=== PATIENT | female | born 1960 | race Caucasian/White ===

== ENCOUNTER → 2017-12-20 12:50 | Outpatient (CLI) | payer OTHER, SELFPAY ==
[2017-12-20 13:17] LABS: Add Manual Diff / Slide Review NO; Basophils Percent Auto 0.1 % (0-2); Eosinophils Percent Auto 1.4 % (2-4); Hematocrit 35.8 % (36-46); Hemoglobin 11.9 g/dL (12.0-16.0); Lymphocytes Percent Auto 36.3 % (25-40); Mean Corpuscular HGB Conc 33.2 % (30-36); Mean Corpuscular Hemoglobin 27.8 PG (26-34); Mean Corpuscular Volume 83.7 fL (80-100); Monocytes Percent Auto 6.9 % (3-14); Neutrophils Absolute Auto 4500 /uL (3000-5900); Neutrophils Percent Auto 55.3 % (50-75); Platelet Count 330 X10^3/uL (150-400); Red Blood Cell Count 4.28 X10^6/uL (4.0-5.2); Red Cell Distribution Width 13.7 % (11.6-14.8); White Blood Cell Count 8.1 X10^3/uL (4.5-11.0)
[2017-12-20 13:34] LABS: Carbon Dioxide 29 mmol/L (22-32); Chloride 106 mmol/L (98-107); HEMOLYSIS < 15 (0-50); Potassium 4.2 mmol/L (3.4-5.1); Sodium 143 mmol/L (137-145)
== END ==
PROVIDERS: PCP Internal Medicine; Visit Provider Orthopaedic Surgery
DX: Z01.818 Encounter for other preprocedural examination (principal); Z01.812 Encounter for preprocedural laboratory examination
CPT/HCPCS: 36415; 80051; 85025; 93005

== ENCOUNTER → 2018-08-08 15:50 | Outpatient (CLI) | payer OTHER, SELFPAY ==
--- NOTE | 2018-08-08 | DI.RAD.S_ITS ---
PROCEDURE: XR CERVICAL SPINE 4V OR 5V INDICATIONS: CERVICAL RADICULOPATHY TECHNIQUE: 5 views of the cervical spine acquired. COMPARISON: None. FINDINGS: Bones: No fractures or dislocations to the T1 level. Oblique images demonstrate moderate foraminal narrowing on the left at C3-4, mild foraminal narrowing on the right at C4-5 and to a lesser extent on the left C4-5 due to apparent uncovertebral joint hypertrophy. This may be accentuated by overlying cartilaginous calcification. Soft tissues: No prevertebral soft tissue swelling. IMPRESSION: Uncovertebral joint hypertrophy may result in bilateral foraminal narrowing in the upper cervical spine as described. Dictated by: Susy Gomez M.D. on 08/08/2018 at 17:06 Approved by: Susy Gomez M.D. on 08/08/2018 at 17:17
--- NOTE | 2018-08-08 | DI.RAD.S_ITS ---
PROCEDURE: XR LUMBAR SPINE 2-3V INDICATIONS: LUMBAR RADICULOPATHY TECHNIQUE: 3 views of the lumbar spine were acquired. COMPARISON: None. FINDINGS: Bones: 6 [id number] vertebrae are present. Grade 1 anterolisthesis of L5 on 6. Otherwise normal bony alignment. Mild facet hypertrophy L5 6. No vertebral body compression fractures. No suspicious bony lesions. Soft tissues: Overlying bowel gas pattern is normal. No suspicious soft tissue calcifications. IMPRESSION: 1. Grade 1 anterolisthesis L5 on 6 and bilateral facet hypertrophy may narrow the neural exit foramina. Consider MRI for persistent symptoms. Dictated by: Susy Gomez M.D. on 08/08/2018 at 17:03 Approved by: Susy Gomez M.D. on 08/08/2018 at 17:06
== END ==
PROVIDERS: Family Provider Internal Medicine; PCP Internal Medicine; Visit Provider Internal Medicine
DX: M54.16 Radiculopathy, lumbar region (principal); M54.12 Radiculopathy, cervical region; M43.16 Spondylolisthesis, lumbar region; M48.02 Spinal stenosis, cervical region
CPT/HCPCS: 72050; 72100

== ENCOUNTER → 2018-10-05 07:46 | Outpatient (CLI) | payer OTHER, SELFPAY ==
--- NOTE | 2018-10-05 | DI.MG.S_ITS ---
BILATERAL DIGITAL SCREENING MAMMOGRAM 3D/2D WITH CAD: 10/05/2018 CLINICAL: Routine screening. Comparison is made to exams dated: 04/23/2017 mammogram - [facility], 03/17/2013 mammogram, and 02/11/2011 mammogram - [facility]. There are scattered fibroglandular elements in both breasts. Current study was also evaluated with a Computer Aided Detection (CAD) system. No significant masses, calcifications, or other findings are seen in either breast. There has been no significant interval change. IMPRESSION: NEGATIVE There is no mammographic evidence of malignancy. A 1 year screening mammogram is recommended. This exam was interpreted at Station ID: [id number]. NOTE: For mammograms, a report in lay terms will be sent to the patient. Approximately 15% of breast malignancies will not be visualized mammographically. In the management of a palpable breast mass, a negative mammogram must not discourage biopsy of a clinically suspicious lesion. Electronically Signed By: Alexander jose/obed:10/05/2018 10:48:53 letter sent: Normal Exam ACR BI-RADS Category 1: Negative [id number]
== END ==
PROVIDERS: Family Provider Internal Medicine; PCP Internal Medicine; Visit Provider Internal Medicine
DX: Z12.31 Encounter for screening mammogram for malignant neoplasm of breast (principal)
CPT/HCPCS: 77063; 77067

== ENCOUNTER → 2019-02-09 12:32 | Outpatient (CLI) | payer OTHER, SELFPAY | PROVIDERS: Family Provider Internal Medicine; PCP Internal Medicine; Visit Provider Internal Medicine | DX: M85.852 Other specified disorders of bone density and structure, left thigh (principal); Z78.0 Asymptomatic menopausal state | CPT/HCPCS: 77080 ==

== ENCOUNTER → 2019-12-25 16:54 | Outpatient (CLI) | payer BC, SELFPAY ==
--- NOTE | 2019-12-25 16:57 | DI.RAD.S_ITS ---
PROCEDURE: XR LUMBAR SPINE 2-3V INDICATIONS: LUMBAGO WITH SICIATICA RIGHT AND LEFT SIDE TECHNIQUE: 3 views of the lumbar spine were acquired. COMPARISON: [facility], , XR LUMBAR SPINE 2-3V, 08/08/2018, 15:56. FINDINGS: Bones: 6 [id number] vertebrae are present. There is very mild rightward curvature of lumbar spine centered at L3 level. Grade 1 anterolisthesis of L5 on S1 is seen. Degenerative endplate changes and bilateral facet arthrosis at L4-5 and L5-S1 levels are noted.. No vertebral body compression fractures. No suspicious bony lesions. Soft tissues: Overlying bowel gas pattern is normal. No suspicious soft tissue calcifications. IMPRESSION: Grade 1 anterolisthesis of L5 on S1. Degenerative disc lower lumbar spine. No acute compression fracture. Findings are not significantly changed from prior study. Dictated by: Robinson Mo M.D. on 12/25/2019 at 17:41 Approved by: Robinson Mo M.D. on 12/25/2019 at 17:45
== END ==
PROVIDERS: Family Provider Internal Medicine; PCP Internal Medicine; Referring Provider Student in an Organized Health Care Education/Training Program; Visit Provider Student in an Organized Health Care Education/Training Program
DX: M51.16 Intervertebral disc disorders with radiculopathy, lumbar region (principal); M43.17 Spondylolisthesis, lumbosacral region
CPT/HCPCS: 72100

== ENCOUNTER 2019-12-29 13:44 | Inpatient (IN) | payer BC, SELFPAY ==
[2019-12-29] VITALS (17 sets, daily range): BP systolic 108–148; BP diastolic 55–78; PULSE 68–88; RESP 14–29; TEMP 36.2–37.8; O2SAT 96–100; BMI 29.2
[2019-12-29 14:38] LABS: Alanine Aminotransferase 14 IU/L (<35); Albumin 3.7 g/dL (3.5-5.0); Albumin Globulin Ratio 1.5 (1.0-2.8); Alkaline Phosphatase 62 U/L (38-126); Aspartate Aminotransferase 20 IU/L (14-36); Bilirubin Total 0.3 mg/dL (0.2-1.3); Blood Urea Nitrogen 15 mg/dL (7-17); Calcium 8.3 mg/dL (8.4-10.2); Carbon Dioxide 25 mmol/L (22-32); Chloride 108 mmol/L (98-107); Estimated Glomerular Filt Rate > 60.0 mL/min (>60); Globulin 2.4 g/dL (1.7-4.1); Glucose 96 mg/dL (80-110); HEMOLYSIS < 15 (0-50); Potassium 3.9 mmol/L (3.4-5.1); Sodium 140 mmol/L (137-145); Total Protein 6.1 g/dL (6.3-8.2)
[2019-12-29 14:42] LABS: Add Manual Diff / Slide Review NO; Basophils Absolute Auto 0 /uL (0-100); Basophils Percent Auto 0.2 % (0-2); Eosinophils Absolute Auto 100 /uL (0-450); Eosinophils Percent Auto 0.6 % (2-4); Lymphocytes Absolute Auto 1800 /uL (1100-4500); Lymphocytes Percent Auto 20.1 % (25-40); Mean Corpuscular Hemoglobin 22.3 PG (26-34); Mean Corpuscular Volume 71.8 fL (80-100); Monocytes Absolute Auto 600 /uL (0-900); Neutrophils Absolute Auto 6500 /uL (1500-7000); Neutrophils Percent Auto 72.1 % (50-75); Platelet Count 391 X10^3/uL (150-400); Red Blood Cell Count 2.51 X10^6/uL (4.0-5.2); White Blood Cell Count 9.1 X10^3/uL (4.5-11.0)
[2019-12-29 14:43] LABS: Hemoglobin 5.6 g/dL (12.0-16.0)
--- NOTE | 2019-12-29 14:52 | ED_ITS ---
HPI - Recheck/Abnormal Lab/Rx General Chief Complaint: Recheck/Abnormal Lab/Rx Stated Complaint: hemaglobin is low Time Seen by Provider: 12/29/19 14:20 Source: patient Mode of arrival: Ambulatory History of Present Illness HPI narrative: 59-year-old otherwise healthy woman who had a minor slip/fall about a month ago and hurt her right hip and had some spasm into her right back. For this she has been using conservative treatment and taking Aleve gist-enn-eumthir b.i.d. as well as Tylenol. After approximately 2 weeks she noted increasing muscle spasms particularly in her calves and leg cramps so bad that she had to get out of bed to soak in hot water. She is treating this with potassium and magnesium. The back pain is improving after the addition of methocarbamol and gabapentin however the leg cramps are getting dramatically w orse. She was seen by her primary care physician 2 days ago and blood work was ordered. Returned with a dramatically low H&H. She presents to the emergency room today at their request still noting dramatic lower extremity cramps actually somewhat improved after trying quinine last night. She reports mild epigastric pain, no vomiting, no black stools. She does note that she has been taking more Pepto-Bismol due to increasing stomach pain over the last number of weeks. She also notes significantly increased exertional dyspnea and a sense that her legs are quite heavy. She is having no chest pain or palpitations. Complains of no headaches and no other obvious neurologic symptoms. Related Data Home Medications Medication Instructions Recorded Confirmed bupropion HCl 100 mg PO Q DAY #0 08/01/11 multivitamin [Multiple Vitamins] 1 tab PO QDAY #0 08/01/11 trazodone 25 mg PO HS #0 05/19/17 Allergies Allergy/AdvReac Type Severity Reaction Status Date / Time cephalexin [CEPHALEXIN] Allergy Severe RASH/HIVES Unverified 12/29/19 13:57 cyclobenzaprine Allergy Severe Hives Verified 12/29/19 13:57 [From Flexeril] Review of Systems Review of Systems Narrative: Remainder of review of systems including constitutional, ENT, cardiovascular, respiratory, GI, , musculoskeletal, skin, neurologic and psychiatric systems reviewed and are unremarkable except as noted in HPI. Patient History Medical History Upper GI bleed (Acute) Social History Smoking Status: Never smoker Smoking Status: Never smoker Substance Use Type: does not use Exam Narrative Exam Narrative: General: Healthy appearing, pale but in no acute distress. Able to give a complete and coherent history. Well-nourished well-developed HEENT: Moist mucous membranes, normal sclera with reactive pupils, Neck: No JVD, supple Respiratory: Lungs are clear to auscultation, no wheezing no rales no rhonchi. Full and symmetrical air movement Cardiac: Regular rate and rhythm no murmurs no bruits Abdomen: Soft, mild epigastric tenderness, good bowel tones, no flank pain Skin: Warm and dry, no rashes Neurologic: Grossly neurologically intact with no obvious asymmetries or abnormalities Extremities: No trauma Psych: Cooperative, appropriate insight and affect Rectal exam: guaiac positive Initial Vital Signs Initial Vital Signs: Vital Signs Temperature 97.2 F L 12/29/19 13:49 Pulse Rate 82 12/29/19 13:49 Respiratory Rate 20 12/29/19 13:49 Blood Pressure 148/67 H 12/29/19 13:49 Pulse Oximetry 100 12/29/19 13:49 Course Orders Ordered: ED Orders 12/29/19 14:18 Complete Blood Count AUTO DIFF Stat Comprehensive Metabolic Panel Stat Packed Cells Stat Troponin I Stat Type and Screen Stat 12/29/19 14:21 Urinalysis and Microscopic Stat 12/29/19 14:43 EKG-12 Lead Stat Pantoprazole Sodium 80 mg/ (Sodium Chloride) 100 mls @ 10 mls/hr IV CONT AFSHIN Last Admin: 12/29/19 15:05 Dose: 8 mg/hr, 10 mls/hr Documented by: ALEJANDRA Discontinued Medications Pantoprazole Sodium (Protonix) 80 mg IV NOW ONE Stop: 12/29/19 14:44 Last Admin: 12/29/19 15:05 Dose: 80 mg Documented by: ALEJANDRA Vital Signs Vital signs: Vital Signs - 8 hr 12/29/19 13:49 Temperature 97.2 F L Pulse Rate 82 Respiratory Rate 20 Blood Pressure 148/67 H Pulse Oximetry 100 MDM - Recheck/Abnormal Lab/Rx Medical Records Attestation: I reviewed the patient's medical records. Lab Data Attestation: I reviewed the patient's lab results. Result diagrams: 12/29/19 14:18 12/29/19 14:18 Labs: Lab Results 12/29/19 12/29/19 12/29/19 Range/Units 14:18 14:18 14:18 WBC 9.1 (4.5-11.0) X10^3/uL RBC 2.51 L (4.0-5.2) X10^6/uL Hgb 5.6 L* (12.0-16.0) g/dL Hct 18.0 L* (36-46) % MCV 71.8 L (80-100) fL MCH 22.3 L (26-34) PG MCHC 31.0 (30-36) % RDW 18.0 H (11.6-14.8) % Plt Count 391 (150-400) X10^3/uL Neut % (Auto) 72.1 (50-75) % Lymph % (Auto) 20.1 L (25-40) % [place] % (Auto) 7.0 (3-14) % Eos % (Auto) 0.6 L (2-4) % Baso % (Auto) 0.2 (0-2) % Neut # (Auto) 6500 (9368-2808) /uL Lymph # (Auto) 1800 (5830-5458) /uL [place] # (Auto) 600 (0-900) /uL Eos # (Auto) 100 (0-450) /uL Baso # (Auto) 0 (0-100) /uL Sodium 140 (137-145) mmol/L Potassium 3.9 (3.4-5.1) mmol/L Chloride 108 H (98-107) mmol/L Carbon Dioxide 25 (22-32) mmol/L BUN 15 (7-17) mg/dL Creatinine 0.79 (0.52-1.04) mg/dL Estimated GFR > 60.0 (>60) mL/min BUN/Creatinine Ratio 19.0 (6-22) Glucose 96 (80-110) mg/dL Calcium 8.3 L (8.4-10.2) mg/dL Total Bilirubin 0.3 (0.2-1.3) mg/dL AST 20 (14-36) IU/L ALT 14 (<35) IU/L Alkaline Phosphatase 62 (38-126) U/L Troponin I (0.01-0.034) ng/mL Total Protein 6.1 L (6.3-8.2) g/dL Albumin 3.7 (3.5-5.0) g/dL Globulin 2.4 (1.7-4.1) g/dL Albumin/Globulin Ratio 1.5 (1.0-2.8) Blood Type O Positive Antibody Screen Negative Crossmatch See Detail 12/29/19 Range/Units 14:18 WBC (4.5-11.0) X10^3/uL RBC (4.0-5.2) X10^6/uL Hgb (12.0-16.0) g/dL Hct (36-46) % MCV (80-100) fL MCH (26-34) PG MCHC (30-36) % RDW (11.6-14.8) % Plt Count (150-400) X10^3/uL Neut % (Auto) (50-75) % Lymph % (Auto) (25-40) % [place] % (Auto) (3-14) % Eos % (Auto) (2-4) % Baso % (Auto) (0-2) % Neut # (Auto) (2074-3745) /uL Lymph # (Auto) (9063-5836) /uL [place] # (Auto) (0-900) /uL Eos # (Auto) (0-450) /uL Baso # (Auto) (0-100) /uL Sodium (137-145) mmol/L Potassium (3.4-5.1) mmol/L Chloride (98-107) mmol/L Carbon Dioxide (22-32) mmol/L BUN (7-17) mg/dL Creatinine (0.52-1.04) mg/dL Estimated GFR (>60) mL/min BUN/Creatinine Ratio (6-22) Glucose (80-110) mg/dL Calcium (8.4-10.2) mg/dL Total Bilirubin (0.2-1.3) mg/dL AST (14-36) IU/L ALT (<35) IU/L Alkaline Phosphatase (38-126) U/L Troponin I < 0.012 (0.01-0.034) ng/mL Total Protein (6.3-8.2) g/dL Albumin (3.5-5.0) g/dL Globulin (1.7-4.1) g/dL Albumin/Globulin Ratio (1.0-2.8) Blood Type Antibody Screen Crossmatch ECG Data Attestation: I personally reviewed and interpreted this ECG as follows: Interpretation: Sinus rhythm at a rate of 81 Normal intervals, normal axis No acute ischemic changes MDM Narrative Medical decision making narrative: 59-year-old woman with increasing leg cramps and exertional dyspnea over the last month concurrent with taking Aleve secondary to a musculoskeletal low back right hip injury. Dramatically low H&H with guaiac-positive stool and mild epigastric pain. Reviewed with General Surgery, will anticipate EGD after fluid and blood resusci tation, with continued PPI drip. Will contact hospitalist service and plan for admission for transfusion and continued observation. Reviewed with hospitalist. Will plan on admission, 2 units of packed red blood cells relatively slowly if she is hemodynamically stable at this time. Patient as well as her updated on findings. Telemetry/observation stay Stable for transfer to the floor Discharge Plan Departure Patient Disposition: Admitted as Observation Clinical Impression: Upper GI bleed Anemia Qualifiers: Anemia type: unspecified type Qualified Code(s): D64.9 - Anemia, unspecified Referrals: Tera Chand MD [Primary Care Provider] -
[2019-12-29] MEDS: PANTOPRAZOLE 40 MG VIAL 80 MG IV (15:05)
[2019-12-29] MEDS: PANTOPRAZOLE 80 MG in SODIUM CHLORIDE 0.9% 100 ML 10 ML IV (15:05)
[2019-12-29 15:10] LABS: Troponin I < 0.012 ng/mL (0.01-0.034)
[2019-12-29 17:12] LABS: COVID19 -Nasal RAPID Negative (Negative)
[2019-12-29] MEDS: ONDANSETRON 4 MG/2 ML INJ IV (18:00)
[2019-12-29] MEDS: BISACODYL 10 MG SUPP PR (18:00)
[2019-12-29] MEDS: MAG HYDROX/ALUM/SIMETH 30 ML UDC PO (18:00)
[2019-12-29 19:18] LABS: RBC Urine None Seen (0-5/HPF)
[2019-12-29 19:23] LABS: Appearance Urine UA CLEAR; Bilirubin Urine UA NEGATIVE (NEGATIVE); Color Urine UA YELLOW; Glucose Urine UA NEGATIVE (Negative); Ketones Urine UA NEGATIVE (NEGATIVE); Leukocyte Esterase Urine UA 1+ (NEGATIVE); Nitrite Urine UA NEGATIVE (Negative); Occult Blood Urine UA NEGATIVE (Negative); Protein Urine UA NEGATIVE (Negative); Urobilinogen Urine UA 0.2 E.U./dL (0.2)
[2019-12-29 19:31] LABS: pH Urine UA 6.5 (4.5-8.0)
[2019-12-29 19:33] LABS: Squamous Epithelial Cell Urine 0-1 /HPF (0-5/HPF); WBC Urine 10-30/HPF (0-5/HPF)
[2019-12-29 19:34] LABS: Amorphous Sediment Urine 1+; Bacteria Urine Occasional (0-1); Culture Indicated Urine Specimen Cultured
--- NOTE | 2019-12-29 20:39 | PC.NURSE ---
Addendum entered by Malissa Hendrickson R.N. 12/29/19 22:04: Late entry: Pt to room 205 from E.R. early in this evening shift. Awake, alert, independent with transfer. Denies dizziness with activity. No shortness of breath observed. Dr. Cervantes in to see patient. Pt covid negative so droplet precautions removed. Consent signed for EGD 12/29 @ [address] Cervantes. Pt denies any unanswered questions/concerns. Pt's spouse takes pt's home meds home. Clear liquid diet. Addendum entered by Malissa Hendrickson R.N. 12/29/19 21:08: DOOR PATCHERLynette Smiley was made aware of pt's slight increase in temp and action of administering tylenol. Rated of blood transfusion decreased to 125 cc/hr. DOOR PATCHER in to see patient at this hour. Original Note: Pt's second unit of blood infusing without difficulty. At 15 minute vital signs temp 98.2 orally and 100.0 temporally. No overt signs of transfusion reaction. Pt given tylenol to manage epigastric/abdominal discomfort 07/13. BL calf scd's in place.
[2019-12-29] MEDS: ACETAMINOPHEN 325 MG TABLET 650 MG PO (20:43)
[2019-12-29] MEDS: methocarbamoL 500 MG TABLET 750 MG PO (23:00)
[2019-12-29] MEDS: TRAZODONE 50 MG TABLET PO (23:00)
[2019-12-29] MEDS: GABAPENTIN 300 MG CAPSULE PO (23:00)
[2019-12-29] MEDS: diazePAM 2 MG TABLET PO (23:01)
[2019-12-29] MEDS: SODIUM CHLORIDE 0.9% 1,000 ML 100 ML IV (23:16)
[2019-12-30] VITALS (9 sets, daily range): BP systolic 89–125; BP diastolic 53–77; PULSE 62–73; RESP 11–18; TEMP 36.3–36.8; O2SAT 93–100
--- NOTE | 2019-12-30 00:46 | P.HP_ITS ---
History of Present Illness History of Present Illness Date Patient Seen: 12/29/19 Time Patient Seen: 20:43 Chief complaint: hemaglobin is low Narrative: Ms. Germaine Cleveland is a 59-year-old female with a past medical history significant for depression and vertigo who presents to the ER sent in by per primary care provider for abnormal labs. The patient presents with multiple medical complaints that have been progressive over the last month. The patient states her symptoms began around Labor Day after the patient took a fall resulting in right hip and right back pain with back spasms. Patient self- treated Aleve and Tylenol with improvement however the patient subsequently developed calf leg spasms extending up into the groin that became progressively worsened excruciating. The patient was taken potassium and magnesium for this. Her back pain improved with treatment with methocarbamol and gabapentin with leg pains rib becoming worse. The patient was started on quinine with improvement in leg pain. Patient also complained of epigastric pains and was taking Pepto- Bismol has subsequently had black stools. She saw her primary care provider to days ago at which time labs were obtained. The patient was found to have a critically low hemoglobin. She further relates that after flu shot on 12/16/2019 she had multiple episodes nausea vomiting of normal bilious emesis without hematemesis. She reports no complaints of melena prior to taking bismuth or hematochezia. Over the same period of time the patient describes increasing weakness and exacerbation of her pre-existing vertigo. She denies complaints of fevers or chills nasal congestion or sore throat. She had no known COVID-19 exposures. She denies complaints of chest pain or palpitations. She does endorse exertional dyspnea becoming short of breath and feeling weak when ascending stairs. She denies complaints of abdominal pain other than epigastrium, no cramping pain. She denies changes in stool or bladder habits. She has no urgency frequency or burning. The patient is normally active and independent in all ADLs. She uses no assistive devices. Upon arrival the ER the patient is afebrile with temperature 97.2?, heart rate of 82, blood pressure 148/67, respiratory rate of 20, saturating 100% on room air. No imaging was obtained. Twelve lead EKG obtained finds sinus rhythm with ventricular rate of 80 without ectopy or block, inverted T-waves noted in lead 3, no evidence of infarct. On laboratory analysis the patient has a white blood cell count of 9.1, hemoglobin of 5.6 and hematocrit of 18.0, MCV of 71.8, MCH of 22.3 and platelets 391. Electrolytes are all within normal limits and she has a BUN of 15 and creatinine 0.79. Her nonfasting glucose is 96. Her liver functions are all within normal limits and she has an albumin of 3.7. Troponin is found to be less than 0.012. On urinalysis she has a specific gravity of 1.020, 1+ leukocyte esterase, 10-30 WBCs and occasional bacteria. Her COVID-19 screening is negative. Gel surgeries contacted and Dr. Cervantes agrees to consult with plans for EGD in the morning. Transfusions initiated in the ER of 2 units of packed RBCs as well as started on a Protonix drip. The patient is admitted to the hospitalist service for upper GI bleed which general surgery consult. Patient History Medical History Depression (Inactive) Vertigo (Acute) Surgical History History of left knee surgery (Acute) History of right knee surgery (Acute) Family & Social History Family History (Updated 12/30/19 @ 01:10 by KATERINA Villalobos) Father Alcoholic Mother No significant medical problems Sister No significant medical problems Social History: household members significant other,children Prior Living Arrangements House Safety & Behavioral: Feels Safe in Current Yes Environment Been Physically Hurt or No Threatened By a Person Suicidal Ideation Description None Suicide Plan Description No Plan Tobacco & Substance use: Smoking Status Never smoker alcohol intake never Substance Use Type does not use Meds Home Medications and Allergies Home Medications Medication Instructions Recorded Confirmed Type bupropion HCl 100 mg PO QAM #0 08/01/11 12/29/19 History multivitamin [Multiple Vitamins] 1 tab PO QDAY #0 08/01/11 12/29/19 History trazodone 50 mg PO HS #0 05/19/17 12/29/19 History acetaminophen 650 mg PO Q12H 12/29/19 12/29/19 History bismuth subsalicylate 2 tab PO Q1H 12/29/19 12/29/19 History [Pepto-Bismol] cholecalciferol (vitamin D3) 25 mcg PO DAILY 12/29/19 12/29/19 History diazepam 2 mg PO BID PRN 12/29/19 12/29/19 History gabapentin 300 mg PO TID 12/29/19 12/29/19 History magnesium, potassium aspartate 1 cap PO QID 12/29/19 12/29/19 History methocarbamol 750 mg PO QID 12/29/19 12/29/19 History vitamin E 400 unit PO DAILY 12/29/19 12/29/19 History Allergies Allergy/AdvReac Type Severity Reaction Status Date / Time cephalexin [CEPHALEXIN] Allergy Severe RASH/HIVES Unverified 12/29/19 13:57 cyclobenzaprine Allergy Severe Hives Verified 12/29/19 13:57 [From Flexeril] hydrocodone AdvReac Intermediate Vomiting Verified 12/29/19 19:34 Review of Systems Review of Systems ROS: Yes All systems reviewed with the patient and are negative except as otherwise documented Exam Vital Signs (past 8 hours): - 12/29/19 17:31 12/29/19 17:49 12/29/19 20:04 Temperature 98.6 F 98.9 F 99.3 F Pulse Rate 75 88 71 Respiratory Rate 16 14 16 Blood Pressure 128/78 119/68 122/55 L Pulse Oximetry 12/29/19 20:09 12/29/19 20:27 12/29/19 21:00 Temperature 99.3 F 100.0 F H 99.2 F Pulse Rate 71 68 Respiratory Rate 16 16 Blood Pressure 122/55 L 108/66 Pulse Oximetry 12/29/19 22:55 12/29/19 23:15 Temperature 99.4 F 97.6 F Pulse Rate 75 70 Respiratory Rate 20 16 Blood Pressure 117/73 108/70 Pulse Oximetry 96 Oxygen Delivery Method Room Air Oxygen Flow Rate 0 Narrative Exam Narrative: GENERAL APPEARANCE: well developed, well nourished, in no acute distress. HEENT: Normocephalic, PERRLA, sclera anicteric, EOMs intact without nystagmus, no sinus tenderness to percussion, no rhinorrhea, mucous membranes are pale and dry without lesions or exudate. NECK/THYROID: neck supple, no JVD, no carotid bruit, no thyromegaly, trachea midline. LYMPH NODES: no cervical or supraclavicular lymphadenopathy. SKIN: Pale, warm and dry, no visible lesions, rashes, ulcerations or petechiae. HEART: regular rate and rhythm, S1-S2, no murmur, no rubs or gallops, brisk capillary refill, no edema LUNGS: clear to auscultation bilaterally, no coarseness crackles or wheezing, no cough present CHEST: Symmetrical movement, no accessory muscle use, good tidal volume. ABDOMEN: Soft, no distention, epigastric pain on palpation, no abdominal tenderness, no guarding or peritoneal signs, no organomegaly, no flank or suprapubic tenderness, active bowel tones. BACK: Normal curvature, lumbar back pain on palpation, no muscle spasms palpated. EXTREMITIES: moves all extremities, strength is 5/5 and symmetrical, no no muscular tenderness on palpation, no deformities or joint effusions. NEUROLOGIC: AAO x4, no focal neurologic deficits, cranial nerves II-XII grossly intact, sensation intact to light touch, no radicular leg pain. PSYCH: Good eye contact, mildly anxious linear thought process, cooperative. Objective Labs Result Diagrams: 12/29/19 14:18 12/29/19 14:18 Labs: Laboratory Results - last 24 hr 12/29/19 12/29/19 12/29/19 14:18 14:18 14:18 WBC 9.1 RBC 2.51 L Hgb 5.6 L* Hct 18.0 L* MCV 71.8 L MCH 22.3 L MCHC 31.0 RDW 18.0 H Plt Count 391 Neut % (Auto) 72.1 Lymph % (Auto) 20.1 L [place] % (Auto) 7.0 Eos % (Auto) 0.6 L Baso % (Auto) 0.2 Neut # (Auto) 6500 Lymph # (Auto) 1800 [place] # (Auto) 600 Eos # (Auto) 100 Baso # (Auto) 0 Sodium 140 Potassium 3.9 Chloride 108 H Carbon Dioxide 25 BUN 15 Creatinine 0.79 Estimated GFR > 60.0 BUN/Creatinine Ratio 19.0 Glucose 96 Calcium 8.3 L Total Bilirubin 0.3 AST 20 ALT 14 Alkaline Phosphatase 62 Troponin I Total Protein 6.1 L Albumin 3.7 Globulin 2.4 Albumin/Globulin Ratio 1.5 Urine Color Urine Appearance Urine pH Ur Specific [place] Urine Protein Urine Glucose (UA) Urine Ketones Urine Occult Blood Urine Nitrate Urine Bilirubin Urine Urobilinogen Ur Leukocyte Esterase Urine RBC Urine WBC Ur Squamous Epith Cells Amorphous Sediment Urine Bacteria Ur Culture Indicated? COVID-19 PCR Blood Type O Positive Antibody Screen Negative Crossmatch See Detail 12/29/19 12/29/19 12/29/19 14:18 16:00 19:17 WBC RBC Hgb Hct MCV MCH MCHC RDW Plt Count Neut % (Auto) Lymph % (Auto) [place] % (Auto) Eos % (Auto) Baso % (Auto) Neut # (Auto) Lymph # (Auto) [place] # (Auto) Eos # (Auto) Baso # (Auto) Sodium Potassium Chloride Carbon Dioxide BUN Creatinine Estimated GFR BUN/Creatinine Ratio Glucose Calcium Total Bilirubin AST ALT Alkaline Phosphatase Troponin I < 0.012 Total Protein Albumin Globulin Albumin/Globulin Ratio Urine Color Yellow Urine Appearance Clear Urine pH 6.5 Ur Specific [place] 1.020 Urine Protein Negative Urine Glucose (UA) Negative Urine Ketones Negative Urine Occult Blood Negative Urine Nitrate Negative Urine Bilirubin Negative Urine Urobilinogen 0.2 Ur Leukocyte Esterase 1+ H Urine RBC None seen Urine WBC 10-30/hpf H Ur Squamous Epith Cells 0-1 /hpf Amorphous Sediment 1+ Urine Bacteria Occasional (0-1) Ur Culture Indicated? Specimen cultured COVID-19 PCR Negative Blood Type Antibody Screen Crossmatch Assessment & Plan Assessment & Plan narrative: This is a 59-year-old female who presents to the ER at the request of her primary care provider following obtaining lab work in finding critically low hemoglobin. The patient has been taking Aleve and Tylenol for her back pain following a fall several weeks ago. The patient has had associated progressive weakness, exertional dyspnea, exacerbation of vertigo and progressive leg pains. 1. Acute upper GI bleed, present on admission, active -likely related to NSAID use, patient was taking Aleve twice daily for her back pain. No prior history a GI problems. -upon arrival the patient has a hemoglobin 5.6 and hematocrit of 18.0. -general surgery is contact, Dr. Cervantes agrees to consult and we appreciate his recommendations and evaluation. -will plan for EGD in the morning with patient NPO post midnight. -pantoprazole infusion at 8 mg an hour. 2. Acute blood loss anemia secondary to GI bleed, present on admission, active. -hemoglobin is 5.6 with hematocrit of 18.0, MCV is 71.8, MCH is 22.3. -patient is transfused 2 units of packed RBCs. Will recheck H&H 1 hour post transfusion. -ordered ferrous sulfate 325 mg twice daily starting tomorrow afternoon following EGD 3. Acute lumbar back pain without radiculopathy, present on admission, active. -will continue pain management with gabapentin 300 mg t.i.d. and methocarbamol 750 mg q.i.d.. -requested physical therapy consult, evaluate and treat. 4. Depression with anxiety, chronic, stable. -continue home regimen of bupropion 100 mg daily -ordered diazepam 2 mg orally as needed for anxiety. 5. Vertigo, chronic, stable. -not evident at time of encounter. VTE prophylaxis: SCDs, chemical prophylaxis contraindicated. IV fluid: Transfusing 2 units of packed RBCs, normal saline 100 cc/hour. Diet: Clear liquids, NPO at midnight. Code status: Full code, patient designates her to be surrogate decision maker. The patient is admitted to the hospital due to the severity of anemia and necessity of treatment and further evaluation and intervention. Patient is adm itted as observation with expected length of stay to be less than 2 midnights. COVID-19 COVID-19 status: Negative Result date/Date tested (Pos, Neg/Pending): 12/29/19 Scores GCS Julito coma scale eye opening: Spontaneous [place] coma scale verbal response: Orientated [place] coma scale motor response: Obey commands [place] coma scale total score: 15 Quality VTE Deep Vein Thrombosis/Pulmonary Embolism Present on Admission: No
[2019-12-30 01:10] LABS: Hemoglobin 7.2 g/dL (12.0-16.0)
[2019-12-30 01:12] LABS: Hematocrit 22.4 % (36-46)
[2019-12-30 05:35] LABS: Add Manual Diff / Slide Review NO; Basophils Absolute Auto 0 /uL (0-100); Basophils Percent Auto 0.2 % (0-2); Eosinophils Absolute Auto 100 /uL (0-450); Eosinophils Percent Auto 1.3 % (2-4); Hematocrit 23.8 % (36-46); Hemoglobin 7.5 g/dL (12.0-16.0); Lymphocytes Absolute Auto 2800 /uL (1100-4500); Lymphocytes Percent Auto 39.3 % (25-40); Mean Corpuscular HGB Conc 31.6 % (30-36); Mean Corpuscular Hemoglobin 23.5 PG (26-34); Mean Corpuscular Volume 74.5 fL (80-100); Monocytes Absolute Auto 700 /uL (0-900); Monocytes Percent Auto 10.1 % (3-14); Neutrophils Absolute Auto 3500 /uL (1500-7000); Neutrophils Percent Auto 49.1 % (50-75); Platelet Count 320 X10^3/uL (150-400); Red Cell Distribution Width 17.5 % (11.6-14.8); White Blood Cell Count 7.2 X10^3/uL (4.5-11.0)
[2019-12-30 05:41] LABS: BUN Creatinine Ratio 13.7 (6-22); Blood Urea Nitrogen 10 mg/dL (7-17); Calcium 7.8 mg/dL (8.4-10.2); Carbon Dioxide 25 mmol/L (22-32); Chloride 111 mmol/L (98-107); Estimated Glomerular Filt Rate > 60.0 mL/min (>60); Glucose 89 mg/dL (80-110); HEMOLYSIS < 15 (0-50); Potassium 3.7 mmol/L (3.4-5.1); Sodium 141 mmol/L (137-145)
[2019-12-30] MEDS: ACETAMINOPHEN 650 MG SUPP PR (06:36)
[2019-12-30] MEDS: LACTATED RINGERS 1,000 ML 42 ML IV (08:10)
[2019-12-30] MEDS: fentaNYL 250 MCG/5 ML INJ IV (08:31)
[2019-12-30] MEDS: MIDAZOLAM 5 MG/5 ML VIAL IV (08:32)
[2019-12-30] MEDS: LIDOCAINE 4% SOLN 50 ML 20 ML TOP (08:33)
--- NOTE | 2019-12-30 08:40 | PM.OP.ENDO ---
Operative Date/Time/Diagnoses Date of procedure: 12/30/19 Time of procedure: 08:40 Pre-op diagnosis: Upper GI bleed from duodenal ulcer Post-op diagnosis: same Procedure & Clinicians Study performed: Esophagogastroduodenoscopy Same procedure as scheduled: Yes Indications: Patient with severe anemia on nonsteroidals Surgeon: Collin Cervantes Procedure Notes SCOAP/Timeout: This was done Procedure in detail: Patient was properly identified during surgical pause given topical lidocaine gargle. She was given a total of 3 mg of Versed and 50 micro g of fentanyl throughout this procedure and remained comfortable. The flexible fiberoptic gastroscope inserted transorally from the hypopharynx into the 2nd portion of the duodenum. Patient has a small hiatal hernia. No bleeding in the esophagus the stomach is free of any acute bleeding or old evidence of old blood. In the 1st portion of duodenum just beyond the duodenal bulb there is a punctate duodenal ulcer slightly oozing. Most of the ulcer bed is covered in fibrin. There is no evidence of tumor. The scope was passed down into the 2nd toward the 3rd portion the duodenum with no abnormalities there. The scope was removed without difficulty the patient tolerated this procedure very well. Scope withdrawal time: 5 Sedation minutes: 10 Findings: duodenal ulcer Specimen(s): none sent Impression: Bleeding duodenal ulcer likely the cause of acute and chronic anemia Post-procedure Recommendations: No ASA/NSAIDS Disposition: Acute Care
--- NOTE | 2019-12-30 08:55 | SUR.PHASEI ---
report called to Dali
--- NOTE | 2019-12-30 09:32 | SUR.PHASEI ---
Patient transferred to the floor. Report given to Erin. VS stable. IV saline locked x2.
--- NOTE | 2019-12-30 10:41 | PT.IIE ---
Surgery Performed Operation Date: 12/30/19 09:00 Actual Procedures p Esophagogastroduodenoscopy - Collin Cervantes MD Surgical History (Last Reviewed 12/30/19 @ 01:09 by KATERINA Villalobos) History of left knee surgery (Acute) History of right knee surgery (Acute) Medical History (Last Reviewed 12/30/19 @ 01:09 by KATERINA Villalobos) Depression (Inactive) Vertigo (Acute) Physical Therapy Inpatient Evaluation/Re-Eval M1 PT/OT-IP Prior Functional Status Start: 12/30/19 12:14 Freq: NEEDED Status: Active Protocol: Document 12/30/19 10:41 AB (Rec: 12/30/19 12:22 AB [email or web address]) Medical Review Prior Functional Status Medical History Reviewed Yes Communication able to make needs known Mobility and Gait pt stated that she is independent with all mobilities and ambulation without AD Social History Household Members significant other,children Living Arrangements House Number of Floors (Floors) 3 or More Floors Number of Stairs To Enter/Railing? 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 PT-IP Current Condition Start: 12/30/19 12:14 Freq: NEEDED Status: Active Protocol: Document 12/30/19 10:41 AB (Rec: 12[facility]30/19 12[email or web address] Therapy Current Condition Current Condition Evaluation Date 12/30/19 Treatment Diagnosis GI bleed; generalized weakness Onset Date 12/29/19 M3 PT-IP Subjective Start: 12/30/19 12:14 Freq: NEEDED Status: Active Protocol: Document 12/30/19 10:41 AB (Rec: 12/30/19 12:22 AB [email or web address]) Subjective Physical Therapy Visit Type Type Initial Evaluation Visit Start Time 10:41 Visit Stop Time 11:04 Total Visit Minutes 23 Number of FACILITIES 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 Physical Therapy Visit Comments Patient Comments pt is agreeable to do PT Therapy Pain Assessment Pain Present Pain Present Denied Pain M4 PT-IP Mobility and Gait Start: 12/30/19 12:14 Freq: NEEDED Status: Active Protocol: Document 12/30/19 10:41 AB (Rec: 12/30/19 12:22 AB [email or web address]) PT-Bed Mobility Assessment Supine to Sit Supine to Sit Independent Sit to Supine Sit to Supine Independent PT-Transfer Assessment Sit to and From Stand Sit to and from Stand Independent Equipment Transfer Assistive Device None Orthotic/Prosthetic Devices or Brace: No Transfers Transfer Destination Toilet Transfer Technique ambulated without AD Transfer Ability Level of Assist Independent Gait Assessment Gait Gait Assistance Required: Standby Assistance Distance (Feet) 250 Able to Maintain Weight Bearing Status Yes During Gait Assistive Devices Assistive Device None Orthotic/Prosthetic Devices or Brace: No Gait Deviations General Gait Pattern Within Normal Limits PT-Balance Assessment Sitting Balance and Reactions Static Sitting Balance Ability Normal Dynamic Sitting Balance Ability Normal Standing Balance and Reactions Static Standing Balance Ability Good Dynamic Standing Balance Ability Good Device Used without AD M5 PT-IP Objective Assessments Start: 12/30/19 12:14 Freq: NEEDED Status: Active Protocol: Document 12/30/19 10:41 AB (Rec: 12/30/19 12:22 [email or web address]) Orientation Orientation/Cognition Level of Alertness Alert Orientation Name,Age,Birthday,Month,Date, Year,Day of Week,Place, Situation Safety Awareness Understands Safety Issues Memory Description No Deficits Noted Gross Range of Motion Lower Extremity ROM Assessment Within Functional Limits Strength Lower Extremity Strength Assessment Within Functional Limits Coordination Assessment Gross Coordination Gross Coordination WNL Sensation Assessment Sensation Gross Sensation WNL Muscle Tone Muscle Tone WNL Yes M6 PT-IP Treatment Start: 12/30/19 12:14 Freq: NEEDED Status: Active Protocol: Document 12/30/19 10:41 AB (Rec: 12/30/19 12:22 [email or web address]) Physical Therapy Treatment Education Education Provided Safety M7 PT-IP Assessment and Plan Start: 12/30/19 12:14 Freq: NEEDED Status: Active Protocol: Document 12/30/19 10:41 AB (Rec: 12/30/19 12:22 [email or web address]) PT Summary Assessment and Plan Potential Rehabilitation Potential Good Status of Condition at Evaluation Stable Summary Impairments Gait,Activity Tolerance Assessment Summary pt is independent with bed mobility, SBA for ambulation for safety. pt without LOB during ambulation and has good safety awareness. pt plans to go home with spouse to assist her if needed and also has her son also to assist her . PT eval completed and no further PT intervention indicated. Frequency of Treatment Frequency Of Treatment Discharge Recommendations To Nursing Amount of Assist Needed Standby Assistance Discharge Recommendations PT Discharge Recommendations Home Transportation Needs at Discharge Private Vehicle
--- NOTE | 2019-12-30 11:00 | PC.NURSE ---
Patient denies pain and nausea. NO stools passed on this shift. Patient bowel tones are positive in all quadrants. Patient went to EGD at 0800. Back from EGD, tolerating clear liquids.
--- NOTE | 2019-12-30 11:26 | PM.DS.1 ---
History of Present Illness History of Present Illness Chief complaint: hemaglobin is low Narrative: Ms. Germaine Cleveland is a 59-year-old female with a past medical history significant for depression and vertigo who presents to the ER sent in by per primary care provider for abnormal labs. The patient presents with multiple medical complaints that have been progressive over the last month. The patient states her symptoms began around Labor Day after the patient took a fall resulting in right hip and right back pain with back spasms. Patient self-treated Aleve and Tylenol with improvement however the patient subsequently developed calf leg spasms extending up into the groin that became progressively worsened excruciating. The patient was taken potassium and magnesium for this. Her back pain improved with treatment with methocarbamol and gabapentin with leg pains rib becoming worse. The patient was started on quinine with improvement in leg pain. Patient also complained of epigastric pains and was taking Pepto-Bismol has subsequently had black stools. She saw her primary care provider to days ago at which time labs were obtained. The patient was found to have a critically low hemoglobin. She further relates that after flu shot on 12/16/2019 she had multiple episodes nausea vomiting of normal bilious emesis without hematemesis. She reports no complaints of melena prior to taking bismuth or hematochezia. Over the same period of time the patient describes increasing weakness and exacerbation of her pre-existing vertigo. She denies complaints of fevers or chills nasal congestion or sore throat. She had no known COVID-19 exposures. She denies complaints of chest pain or palpitations. She does endorse exertional dyspnea becoming short of breath and feeling weak when ascending stairs. She denies complaints of abdominal pain other than epigastrium, no cramping pain. She denies changes in stool or bladder habits. She has no urgency frequency or burning. The patient is normally active and independent in all ADLs. She uses no assistive devices. Upon arrival the ER the patient is afebrile with temperature 97.2?, heart rate of 82, blood pressure 148/67, respiratory rate of 20, saturating 100% on room air. No imaging was obtained. Twelve lead EKG obtained finds sinus rhythm with ventricular rate of 80 without ectopy or block, inverted T-waves noted in lead 3, no evidence of infarct. On laboratory analysis the patient has a white blood cell count of 9.1, hemoglobin of 5.6 and hematocrit of 18.0, MCV of 71.8, MCH of 22.3 and platelets 391. Electrolytes are all within normal limits and she has a BUN of 15 and creatinine 0.79. Her nonfasting glucose is 96. Her liver functions are all within normal limits and she has an albumin of 3.7. Troponin is found to be less than 0.012. On urinalysis she has a specific gravity of 1.020, 1+ leukocyte esterase, 10-30 WBCs and occasional bacteria. Her COVID-19 screening is negative. Gel surgeries contacted and Dr. Cervantes agrees to consult with plans for EGD in the morning. Transfusions initiated in the ER of 2 units of packed RBCs as well as started on a Protonix drip. The patient is admitted to the hospitalist service for upper GI bleed which general surgery consult. Discharge Providers Provider Date of admission: 12/29/19 15:44 Discharge Date: 12/30/19 Primary care physician: Tera Chand MD Consults: 12/29/19 16:52 Consult to Discharge Planning Routine Comment: Consult to Physical Therapy Evaluate & Treat Comment: Physician Instructions: Evaluate and Treat Discharge provider: Adi Cresw MD Summary Hospital Course Discharge Diagnosis: 1. Acute blood loss anemia 2. Duodenal ulcer with GI bleed 3. Acute lumbar back pain without radiculopathy Hospital Course: Patient was admitted due to symptomatic severe anemia. She was transfused 2 units with hemoglobin improving from 5.6-7.5 and hematocrit improving from 18-23.8. EGD was done which showed a small duodenal ulcer with oozing and fibrin covering the base. The ulcer appears benign and pathology not sent. This is likely the cause of her blood loss anemia. Patient has been taking NSAIDs recently for acute lumbar pain. Patient is started on pantoprazole 40 mg daily which she should take for the next month. She is instructed to avoid aspirin or aspirin type pain relievers. A serum Helicobacter IgG antibody was sent to lab [facility] and results should be back in a few days. Consider treating for H pylori if resolved positive. Patient can also have stool antigen testing done if desired. She is also started on oral iron once daily for the next month to help with anemia. Status at Discharge Cognitive/behavioral status at discharge: oriented Functional status at discharge: independent ambulation Overall status at discharge: patient is progressing back to baseline Exam Vital Signs (past 8 hours): - 12/30/19 04:40 12/30/19 07:00 12/30/19 08:00 Temperature 97.3 F L 97.5 F L Pulse Rate 65 62 Respiratory Rate 16 18 Blood Pressure 115/77 125/77 Pulse Oximetry 100 94 97 12/30/19 08:36 12/30/19 08:41 12/30/19 08:46 Temperature 97.3 F L Pulse Rate 73 72 68 Respiratory Rate 12 15 11 L Blood Pressure 96/58 L 96/53 L 89/58 L Pulse Oximetry 93 97 98 12/30/19 08:51 12/30/19 08:56 Temperature 97.7 F Pulse Rate 66 65 Respiratory Rate 13 15 Blood Pressure 104/69 102/68 Pulse Oximetry 93 94 Oxygen Delivery Method Room Air Oxygen Flow Rate 2 Objective Labs Result Diagrams: 12/30/19 05:15 12/30/19 05:15 Labs: Laboratory Results - last 24 hr 12/29/19 12/29/19 12/29/19 14:18 14:18 14:18 WBC 9.1 RBC 2.51 L Hgb 5.6 L* Hct 18.0 L* MCV 71.8 L MCH 22.3 L MCHC 31.0 RDW 18.0 H Plt Count 391 Neut % (Auto) 72.1 Lymph % (Auto) 20.1 L [place] % (Auto) 7.0 Eos % (Auto) 0.6 L Baso % (Auto) 0.2 Neut # (Auto) 6500 Lymph # (Auto) 1800 [place] # (Auto) 600 Eos # (Auto) 100 Baso # (Auto) 0 Sodium 140 Potassium 3.9 Chloride 108 H Carbon Dioxide 25 BUN 15 Creatinine 0.79 Estimated GFR > 60.0 BUN/Creatinine Ratio 19.0 Glucose 96 Calcium 8.3 L Total Bilirubin 0.3 AST 20 ALT 14 Alkaline Phosphatase 62 Troponin I Total Protein 6.1 L Albumin 3.7 Globulin 2.4 Albumin/Globulin Ratio 1.5 Urine Color Urine Appearance Urine pH Ur Specific [place] Urine Protein Urine Glucose (UA) Urine Ketones Urine Occult Blood Urine Nitrate Urine Bilirubin Urine Urobilinogen Ur Leukocyte Esterase Urine RBC Urine WBC Ur Squamous Epith Cells Amorphous Sediment Urine Bacteria Ur Culture Indicated? COVID-19 PCR Blood Type O Positive Antibody Screen Negative Crossmatch See Detail 12/29/19 12/29/19 12/29/19 14:18 16:00 19:17 WBC RBC Hgb Hct MCV MCH MCHC RDW Plt Count Neut % (Auto) Lymph % (Auto) [place] % (Auto) Eos % (Auto) Baso % (Auto) Neut # (Auto) Lymph # (Auto) [place] # (Auto) Eos # (Auto) Baso # (Auto) Sodium Potassium Chloride Carbon Dioxide BUN Creatinine Estimated GFR BUN/Creatinine Ratio Glucose Calcium Total Bilirubin AST ALT Alkaline Phosphatase Troponin I < 0.012 Total Protein Albumin Globulin Albumin/Globulin Ratio Urine Color Yellow Urine Appearance Clear Urine pH 6.5 Ur Specific [place] 1.020 Urine Protein Negative Urine Glucose (UA) Negative Urine Ketones Negative Urine Occult Blood Negative Urine Nitrate Negative Urine Bilirubin Negative Urine Urobilinogen 0.2 Ur Leukocyte Esterase 1+ H Urine RBC None seen Urine WBC 10-30/hpf H Ur Squamous Epith Cells 0-1 /hpf Amorphous Sediment 1+ Urine Bacteria Occasional (0-1) Ur Culture Indicated? Specimen cultured COVID-19 PCR Negative Blood Type Antibody Screen Crossmatch 12/30/19 12/30/19 12/30/19 01:00 05:15 05:15 WBC 7.2 RBC 3.20 L Hgb 7.2 L 7.5 L Hct 22.4 L 23.8 L MCV 74.5 L MCH 23.5 L MCHC 31.6 RDW 17.5 H Plt Count 320 Neut % (Auto) 49.1 L D Lymph % (Auto) 39.3 [place] % (Auto) 10.1 Eos % (Auto) 1.3 L Baso % (Auto) 0.2 Neut # (Auto) 3500 Lymph # (Auto) 2800 [place] # (Auto) 700 Eos # (Auto) 100 Baso # (Auto) 0 Sodium 141 Potassium 3.7 Chloride 111 H Carbon Dioxide 25 BUN 10 Creatinine 0.73 Estimated GFR > 60.0 BUN/Creatinine Ratio 13.7 Glucose 89 Calcium 7.8 L Total Bilirubin AST ALT Alkaline Phosphatase Troponin I Total Protein Albumin Globulin Albumin/Globulin Ratio Urine Color Urine Appearance Urine pH Ur Specific [place] Urine Protein Urine Glucose (UA) Urine Ketones Urine Occult Blood Urine Nitrate Urine Bilirubin Urine Urobilinogen Ur Leukocyte Esterase Urine RBC Urine WBC Ur Squamous Epith Cells Amorphous Sediment Urine Bacteria Ur Culture Indicated? COVID-19 PCR Blood Type Antibody Screen Crossmatch Discharge Plan Discharge Plan Patient Disposition: Home Discharge comment: Dr Cervantes performed EGD which showed a small oozing duodenal ulcer. The ulcer appears benign and pathology was not sent. A serum H.pylori antibody is pending (send out to [facility]) - follow up on test result with Dr Chand. Avoid aspirin or aspirin type pain relievers but Tylenol is okay. Take pantoprazole for 1 month. You can also take an OTC iron tablet once daily for the next month to help anemia. You received 2 units red blood cell transfusion with hemoglobin improving from 5.6 to 7.5. Have blood counts rechecked in 1 to 2 weeks. Discharge orders & Medications Prescriptions: New pantoprazole 40 mg tablet,delayed release (DR/EC) 40 mg PO DAILY Qty: 30 RF: 0 ferrous sulfate 325 mg (65 mg iron) tablet 325 mg PO DAILY Qty: 30 RF: 0 Continued multivitamin [Multiple Vitamins] 1 EACH tablet 1 tab PO QDAY Qty: 0 RF: 0 bupropion HCl 75 MG tablet 100 mg PO QAM Qty: 0 RF: 0 trazodone 50 MG tablet 50 mg PO HS Qty: 0 RF: 0 diazepam 2 mg Tablet 2 mg PO BID PRN (Reason: Anxiety) RF: 0 acetaminophen 650 mg Tablet Extended Release 650 mg PO Q12H RF: 0 gabapentin 300 mg Capsule 300 mg PO TID RF: 0 magnesium, potassium aspartate 250-250 mg Capsule 1 cap PO QID RF: 0 methocarbamol 750 mg Tablet 750 mg PO QID RF: 0 vitamin E 400 unit Capsule 400 unit PO DAILY RF: 0 cholecalciferol (vitamin D3) 25 mcg (1,000 unit) Capsule 25 mcg PO DAILY RF: 0 Pepto-Bismol 262 mg Tablet 2 tab PO Q1H RF: 0 Follow up/Referrals: Tera Chand MD [Primary Care Provider] - Diet/Activity/Treatments Diet: Diet as Tolerated Discharge Data Primary Care Provider: Tera Chand V Attending Provider: Anabela Floyd Admit Date/Time: 12/29/19 15:44 Quality VTE Deep Vein Thrombosis/Pulmonary Embolism Present on Admission: No
--- NOTE | 2019-12-30 11:44 | CM.DANOTE ---
Discharge Planning/Care Management DCP: continued: case received, EMR reviewed and met with pt during Team Bedside Rounds. Introduced self and role. Pt is a 59 year old female who admitted to care of hospitalist team last evening. PCP: Dr. Chand Payer: BHANU Eric. Consulting: [facility] Dr. Mickie Crews explained he would review the labs for today and procedure report and be back in to talk with pt. He noted that pt would likely be safe for a d/c to home today. Pt confirmed that if so, her Baljit would be picking her up. A check in now shows that pt has been cleared for home and will follow up with Dr. Chand. Pt expresses no concerns re the d/c today. CM Discharge Assessment Start: 12/30/19 11:42 Freq: Status: Active Protocol: Document 12/30/19 11:42 ITV (Rec: 12/30/19 11:43 ITV [id number]) Discharge Planning Assessment Advance Directives? No History Provided By Patient,Medical Record Prior Living Arrangements House Household Members significant other,children Is patient alert and oriented? Yes
--- NOTE | 2019-12-30 12:46 | PC.NURSE ---
All discharge instructions, diet, new medications and disease process and diagnosis explained to patient and his . Patient to follow up w/ primary doctor after discharge and have H&H redrawn. Patient and verbalized understanding regarding teaching. Patient went to private vehicle w/ in a wheelchair.
== END 2019-12-30 12:48 | disposition home or self-care (01) | DRG 378 ==
LOC: ED 15:29 → AC 16:24
PROVIDERS: Internal Medicine; Nurse Practitioner Adult Health; Surgery; Admitting Provider Internal Medicine; Emergency Provider Emergency Medicine; Family Provider Internal Medicine; PCP Internal Medicine; Visit Provider Internal Medicine
PROC: 0DJ08ZZ Inspection of Upper Intestinal Tract, Via Natural or Artificial Opening Endoscopic (ICD-10-PCS; CPT 43235; principal; 2019-12-30 09:00)
DX: K26.4 Chronic or unspecified duodenal ulcer with hemorrhage (principal); D62 Acute posthemorrhagic anemia; T39.395A Adverse effect of other nonsteroidal anti-inflammatory drugs [NSAID], initial encounter; M54.5 Low back pain; F32.9 Major depressive disorder, single episode, unspecified; F41.9 Anxiety disorder, unspecified; Z11.59 Encounter for screening for other viral diseases
CPT/HCPCS: 36415; 36430; 80048; 80053; 81001; 84484; 85014; 85018; 85025; 86850; 86900; 86901; 87086; 87635; 93005; 96365; 96366; 97161; 99284; G0378; P9016; C9113; J2250; J2405; J3010

== ENCOUNTER → 2020-01-04 18:42 | Outpatient (ROUT) | payer BC, SELFPAY ==
[2019-12-29 16:54] VITALS: BMI 29.2
[2020-01-04 18:58] LABS: Add Manual Diff / Slide Review NO; Basophils Absolute Auto 0 /uL (0-100); Basophils Percent Auto 0.5 % (0-2); Eosinophils Absolute Auto 200 /uL (0-450); Eosinophils Percent Auto 2.1 % (2-4); Hematocrit 27.6 % (36-46); Hemoglobin 8.8 g/dL (12.0-16.0); Lymphocytes Absolute Auto 2200 /uL (1100-4500); Lymphocytes Percent Auto 28.1 % (25-40); Mean Corpuscular HGB Conc 31.9 % (30-36); Mean Corpuscular Hemoglobin 23.7 PG (26-34); Mean Corpuscular Volume 74.3 fL (80-100); Monocytes Absolute Auto 600 /uL (0-900); Monocytes Percent Auto 7.8 % (3-14); Neutrophils Absolute Auto 4800 /uL (1500-7000); Neutrophils Percent Auto 61.5 % (50-75); Platelet Count 398 X10^3/uL (150-400); Red Blood Cell Count 3.72 X10^6/uL (4.0-5.2); White Blood Cell Count 7.7 X10^3/uL (4.5-11.0)
== END ==
PROVIDERS: Family Provider Internal Medicine; PCP Internal Medicine; Visit Provider Student in an Organized Health Care Education/Training Program
DX: D62 Acute posthemorrhagic anemia (principal)
CPT/HCPCS: 85025

== ENCOUNTER → 2020-02-05 18:59 | Outpatient (ROUT) | payer BC, SELFPAY ==
[2019-12-29 16:54] VITALS: BMI 29.2
[2020-02-05 20:00] LABS: Add Manual Diff / Slide Review NO; Basophils Absolute Auto 0 /uL (0-100); Basophils Percent Auto 0.6 % (0-2); Eosinophils Absolute Auto 100 /uL (0-450); Eosinophils Percent Auto 1.2 % (2-4); Hemoglobin 9.9 g/dL (12.0-16.0); Lymphocytes Absolute Auto 2100 /uL (1100-4500); Lymphocytes Percent Auto 34.3 % (25-40); Mean Corpuscular Hemoglobin 22.3 PG (26-34); Mean Corpuscular Volume 72.1 fL (80-100); Monocytes Absolute Auto 500 /uL (0-900); Monocytes Percent Auto 7.9 % (3-14); Neutrophils Absolute Auto 3400 /uL (1500-7000); Platelet Count 381 X10^3/uL (150-400); Red Blood Cell Count 4.44 X10^6/uL (4.0-5.2); Red Cell Distribution Width 20.2 % (11.6-14.8); White Blood Cell Count 6.1 X10^3/uL (4.5-11.0)
[2020-02-05 20:09] LABS: HEMOLYSIS < 15 (0-50); Iron 34 ug/dL (37-170)
[2020-02-05 20:22] LABS: Percent Iron Saturation 7 % (15-50); Total Iron Binding Capacity 477 ug/dL (265-497); Transferrin 369 mg/dL (206-381)
[2020-02-05 20:31] LABS: Hypochromasia 1+; Microcytosis 1+
[2020-02-05 20:50] LABS: Ferritin 5 ng/mL (11-264)
[2020-02-05 21:20] LABS: Folate 14.9 ng/mL (2.76-20.0); Vitamin B12 346 pg/mL (239-931)
[2020-02-08 01:07] LABS: Methylmalonic Acid,Serum 83 nmol/L (0-378)
== END ==
PROVIDERS: Family Provider Internal Medicine; PCP Internal Medicine; Visit Provider Internal Medicine
DX: D62 Acute posthemorrhagic anemia (principal); E53.8 Deficiency of other specified B group vitamins
CPT/HCPCS: 82607; 82728; 82746; 83540; 83550; 83921; 85025

== ENCOUNTER → 2020-03-26 16:47 | Outpatient (CLI) | payer BC, SELFPAY ==
[2019-12-29 16:54] VITALS: BMI 29.2
--- NOTE | 2020-03-26 | DI.MG.S_ITS ---
BILATERAL DIGITAL SCREENING MAMMOGRAM 3D/2D WITH CAD: 03/26/2020 CLINICAL: Routine screening. Comparison is made to exams dated: 10/05/2018 mammogram, 04/23/2017 mammogram - [facility], and 03/17/2013 mammogram - [facility]. There are scattered fibroglandular elements in both breasts. Current study was also evaluated with a Computer Aided Detection (CAD) system. No significant masses, calcifications, or other findings are seen in either breast. There has been no significant interval change. IMPRESSION: NEGATIVE There is no mammographic evidence of malignancy. A 1 year screening mammogram is recommended. This exam was interpreted at Station ID: [id number]. NOTE: For mammograms, a report in lay terms will be sent to the patient. Approximately 15% of breast malignancies will not be visualized mammographically. In the management of a palpable breast mass, a negative mammogram must not discourage biopsy of a clinically suspicious lesion. Electronically Signed By: Lucila greene/obed:03/26/2020 17:15:25 letter sent: Normal Exam ACR BI-RADS Category 1: Negative 3341F
== END ==
PROVIDERS: Family Provider Internal Medicine; PCP Internal Medicine; Referring Provider Internal Medicine; Visit Provider Internal Medicine
DX: Z12.31 Encounter for screening mammogram for malignant neoplasm of breast (principal)
CPT/HCPCS: 77063; 77067

== ENCOUNTER → 2020-05-07 19:50 | Outpatient (ROUT) | payer BC, SELFPAY ==
[2019-12-29 16:54] VITALS: BMI 29.2
[2020-05-07 20:15] LABS: HEMOLYSIS < 15 (0-50)
[2020-05-07 20:18] LABS: HEMOLYSIS < 15 (0-50); Iron 25 ug/dL (37-170)
[2020-05-07 20:20] LABS: BUN Creatinine Ratio 20.5 (6-22); Blood Urea Nitrogen 15 mg/dL (7-17); Calcium 9.1 mg/dL (8.4-10.2); Carbon Dioxide 27 mmol/L (22-32); Chloride 107 mmol/L (98-107); Cholesterol 241 mg/dL (140-199); Estimated Glomerular Filt Rate > 60.0 mL/min (>60); Glucose 106 mg/dL (80-110); HDL Cholesterol 62 mg/dL (40-60); LDL Cholesterol Calculated 149 mg/dL (<100); Potassium 4.2 mmol/L (3.4-5.1); Sodium 137 mmol/L (137-145); Triglycerides 150 mg/dL (35-150)
[2020-05-07 20:22] LABS: Add Manual Diff / Slide Review NO; Basophils Absolute Auto 0 /uL (0-100); Basophils Percent Auto 0.5 % (0-2); Eosinophils Absolute Auto 100 /uL (0-450); Eosinophils Percent Auto 1.2 % (2-4); Hematocrit 34.3 % (36-46); Hemoglobin 10.8 g/dL (12.0-16.0); Lymphocytes Absolute Auto 1900 /uL (1100-4500); Lymphocytes Percent Auto 35.8 % (25-40); Mean Corpuscular HGB Conc 31.5 % (30-36); Mean Corpuscular Hemoglobin 23.1 PG (26-34); Mean Corpuscular Volume 73.2 fL (80-100); Monocytes Absolute Auto 400 /uL (0-900); Neutrophils Absolute Auto 3000 /uL (1500-7000); Neutrophils Percent Auto 54.5 % (50-75); Platelet Count 321 X10^3/uL (150-400); Red Blood Cell Count 4.69 X10^6/uL (4.0-5.2); Red Cell Distribution Width 20.3 % (11.6-14.8); White Blood Cell Count 5.4 X10^3/uL (4.5-11.0)
[2020-05-07 20:31] LABS: Percent Iron Saturation 6 % (15-50); Total Iron Binding Capacity 431 ug/dL (265-497); Transferrin 331 mg/dL (206-381)
[2020-05-07 20:49] LABS: Anisocytosis 1+; Microcytosis 1+
[2020-05-07 20:56] LABS: Ferritin 5 ng/mL (11-264)
[2020-05-07 21:11] LABS: Vitamin B12 349 pg/mL (239-931)
== END ==
PROVIDERS: Family Provider Internal Medicine; PCP Internal Medicine; Visit Provider Internal Medicine
DX: K26.4 Chronic or unspecified duodenal ulcer with hemorrhage (principal); E78.2 Mixed hyperlipidemia
CPT/HCPCS: 80048; 80061; 82607; 82728; 83540; 83550; 85025

== ENCOUNTER 2020-10-17 11:18 | Emergency (ER) | payer BC, SELFPAY ==
[2019-12-29 16:54] VITALS: BMI 29.2
[2020-10-17 11:31] VITALS: BP 154/89; PULSE 80; RESP 18; TEMP 37.1; O2SAT 99; BMI 28.1
[2020-10-17] MEDS: SODIUM CHLORIDE 0.9% 1,000 ML 500 ML IV (12:13)
[2020-10-17 12:22] LABS: Add Manual Diff / Slide Review NO; Basophils Absolute Auto 0 /uL (0-100); Basophils Percent Auto 0.4 % (0-2); Eosinophils Absolute Auto 100 /uL (0-450); Eosinophils Percent Auto 1.4 % (2-4); Hematocrit 40.3 % (36-46); Lymphocytes Absolute Auto 1900 /uL (1100-4500); Lymphocytes Percent Auto 29.6 % (25-40); Mean Corpuscular HGB Conc 32.2 % (30-36); Mean Corpuscular Hemoglobin 26.9 PG (26-34); Mean Corpuscular Volume 83.6 fL (80-100); Monocytes Absolute Auto 400 /uL (0-900); Monocytes Percent Auto 6.2 % (3-14); Neutrophils Absolute Auto 4100 /uL (1500-7000); Neutrophils Percent Auto 62.4 % (50-75); Platelet Count 309 X10^3/uL (150-400); Red Blood Cell Count 4.83 X10^6/uL (4.0-5.2); Red Cell Distribution Width 16.7 % (11.6-14.8); White Blood Cell Count 6.5 X10^3/uL (4.5-11.0)
[2020-10-17 12:24] LABS: Alanine Aminotransferase 19 IU/L (<35); Albumin 4.4 g/dL (3.5-5.0); Albumin Globulin Ratio 1.5 (1.0-2.8); Alkaline Phosphatase 82 U/L (38-126); Aspartate Aminotransferase 23 IU/L (14-36); BUN Creatinine Ratio 19.4 (6-22); Bilirubin Total 0.5 mg/dL (0.2-1.3); Blood Urea Nitrogen 14 mg/dL (7-17); Calcium 9.3 mg/dL (8.4-10.2); Carbon Dioxide 27 mmol/L (22-32); Chloride 105 mmol/L (98-107); Estimated Glomerular Filt Rate > 60.0 mL/min (>60); Globulin 2.9 g/dL (1.7-4.1); Glucose 168 mg/dL (80-110); HEMOLYSIS < 15 (0-50); Lipase 46 U/L (23-300); Sodium 141 mmol/L (137-145); Total Protein 7.3 g/dL (6.3-8.2)
--- NOTE | 2020-10-17 12:28 | ED_ITS ---
HPI - GI Bleed General Chief complaint: GI Bleed Stated complaint: potential GI bleed, symptoms for 2wks Time Seen by Provider: 10/17/20 11:35 Source: patient Mode of arrival: Ambulatory Limitations: no limitations History of Present Illness HPI Narrative: Patient is a 60-year-old female here for evaluation of multiple complaints to include 2 weeks of fatigue, lower abdominal pain associated with some diarrhea that has improved somewhat, a history of GI bleeds, feeling like her arms were ?wooden ?this morning, anxiety and chest discomfort. She contacted her primary doctor who told her to come to the emergency department. She has also been getting leg cramp specifically in her left lower extremity at night. She has been taking supplements for this. Related Data Home Medications Medication Instructions Recorded Confirmed bupropion HCl 75 mg tablet 100 mg PO QAM #0 08/01/11 12/29/19 multivitamin (Multiple Vitamins) 1 tab PO QDAY #0 08/01/11 12/29/19 trazodone 50 mg tablet 50 mg PO HS #0 05/19/17 12/29/19 acetaminophen 650 mg 650 mg PO Q12H 12/29/19 12/29/19 tablet,extended release bismuth subsalicylate 262 mg 2 tab PO Q1H 12/29/19 12/29/19 tablet (Pepto-Bismol) cholecalciferol (vitamin D3) 25 25 mcg PO DAILY 12/29/19 12/29/19 mcg (1,000 unit) capsule diazepam 2 mg tablet 2 mg PO BID PRN 12/29/19 12/29/19 gabapentin 300 mg capsule 300 mg PO TID 12/29/19 12/29/19 magnesium aspartate-potassium 1 cap PO QID 12/29/19 12/29/19 aspartate 250 mg-250 mg capsule methocarbamol 750 mg tablet 750 mg PO QID 12/29/19 12/29/19 vitamin E 400 unit capsule 400 unit PO DAILY 12/29/19 12/29/19 Previous Rx's Medication Instructions Recorded ferrous sulfate 325 mg (65 mg 325 mg PO DAILY #30 tab 12/30/19 iron) tablet pantoprazole 40 mg tablet,delayed 40 mg PO DAILY #30 tab 12/30/19 release Allergies Allergy/AdvReac Type Severity Reaction Status Date / Time cephalexin [CEPHALEXIN] Allergy Severe RASH/HIVES Verified 12/30/19 08:10 cyclobenzaprine Allergy Severe Hives Verified 12/30/19 08:10 [From Flexeril] hydrocodone AdvReac Intermediate Vomiting Verified 12/30/19 08:10 Review of Systems Constitutional Constitutional: Denies fever(s) Eyes Eyes: Reports system reviewed and no additional complaints, except as documented Cardiovascular Cardiovascular: Reports as per HPI and Denies dyspnea Respiratory Respiratory: Denies dyspnea Gastrointestinal Gastrointestinal: Reports as per HPI Genitourinary Genitourinary: Reports as per HPI Musculoskeletal Musculoskeletal: Reports system reviewed and no additional complaints, except as documented Integumentary/Breasts Skin/Breast: Denies rash Neurologic Neurologic: Reports system reviewed and no additional complaints, except as documented Hematologic/Lymphatic Hematologic/Lymphatic: Reports system reviewed and no additional complaints, except as documented On Anticoagulants: No Allergic/Immunologic Allergic/Immunologic: Reports system reviewed and no additional complaints, except as documented Patient History Medical History (Updated 10/17/20 @ 13:32 by Chu Fuentes DO) Depression Vertigo Surgical History History of left knee surgery History of right knee surgery Family History (Updated 12/30/19 @ 01:10 by KATERINA Villalobos) Father Alcoholic Mother No significant medical problems Sister No significant medical problems Social History household members: significant other and children Smoking Status: Never smoker alcohol intake: never Smoking Status: Never smoker Substance Use Type: does not use Exam Initial Vital Signs Initial Vital Signs: Vital Signs Temperature 98.8 F 10/17/20 11:31 Pulse Rate 80 10/17/20 11:31 Respiratory Rate 18 10/17/20 11:31 Blood Pressure 154/89 H 10/17/20 11:31 Pulse Oximetry 99 10/17/20 11:31 Const General: cooperative, healthy appearing, comfortable and well developed [facility] Head: normal to inspection and normocephalic Eyes General: appearance normal, both eyes and all related structures Resp Effort & Inspection: normal respiratory effort Auscultation: clear to auscultation bilaterally Cardio Rate: regular rate Rhythm: regular rhythm GI Inspection: normal to inspection Skin General: no rashes or lesions noted Neuro General: patient alert, patient awake and patient oriented x3 Extrem General: normal to inspection and capillary refill normal Psych Appearance: grossly normal and well kempt Course Orders Ordered: ED Orders 10/17/20 11:56 Complete Blood Count AUTO DIFF Stat Comprehensive Metabolic Panel Stat Lipase Stat 10/17/20 12:05 Magnesium Stat 10/17/20 12:09 EKG-12 Lead Stat Discontinued Medications Sodium Chloride (Normal Saline 0.9%) 1,000 mls @ 500 mls/hr IV BOLUS ONE Stop: 10/17/20 13:35 Last Admin: 10/17/20 12:13 Dose: 500 mls/hr Documented by: ERIN Vital Signs Vital signs: Vital Signs - 8 hr 10/17/20 11:31 10/17/20 12:30 10/17/20 13:23 Temperature 98.8 F Pulse Rate 80 78 89 Respiratory Rate 18 18 17 Blood Pressure 154/89 H 116/80 124/80 Pulse Oximetry 99 99 98 10/17/20 13:24 Temperature Pulse Rate 60 Respiratory Rate 18 Blood Pressure 124/80 Pulse Oximetry 100 MDM - GI Bleed Lab Data Attestation: I reviewed the patient's lab results. Result diagrams: 10/17/20 11:56 10/17/20 11:56 Labs: Lab Results 10/17/20 10/17/20 10/17/20 Range/Units 11:56 11:56 12:05 WBC 6.5 (4.5-11.0) X10^3/uL RBC 4.83 (4.0-5.2) X10^6/uL Hgb 13.0 (12.0-16.0) g/dL Hct 40.3 (36-46) % MCV 83.6 (80-100) fL MCH 26.9 (26-34) PG MCHC 32.2 (30-36) % RDW 16.7 H (11.6-14.8) % Plt Count 309 (150-400) X10^3/uL Neut % (Auto) 62.4 (50-75) % Lymph % (Auto) 29.6 (25-40) % [place] % (Auto) 6.2 (3-14) % Eos % (Auto) 1.4 L (2-4) % Baso % (Auto) 0.4 (0-2) % Neut # (Auto) 4100 (6526-0683) /uL Lymph # (Auto) 1900 (3626-7947) /uL [place] # (Auto) 400 (0-900) /uL Eos # (Auto) 100 (0-450) /uL Baso # (Auto) 0 (0-100) /uL Sodium 141 (137-145) mmol/L Potassium 4.0 (3.4-5.1) mmol/L Chloride 105 (98-107) mmol/L Carbon Dioxide 27 (22-32) mmol/L BUN 14 (7-17) mg/dL Creatinine 0.72 (0.52-1.04) mg/dL Estimated GFR > 60.0 (>60) mL/min BUN/Creatinine Ratio 19.4 (6-22) Glucose 168 H (80-110) mg/dL Calcium 9.3 (8.4-10.2) mg/dL Magnesium 2.0 (1.6-2.3) mg/dL Total Bilirubin 0.5 (0.2-1.3) mg/dL AST 23 (14-36) IU/L ALT 19 (<35) IU/L Alkaline Phosphatase 82 (38-126) U/L Total Protein 7.3 (6.3-8.2) g/dL Albumin 4.4 (3.5-5.0) g/dL Globulin 2.9 (1.7-4.1) g/dL Albumin/Globulin Ratio 1.5 (1.0-2.8) Lipase 46 (23-300) U/L ECG Data Attestation: I personally reviewed and interpreted this ECG as follows: Interpretation: Sinus rhythm Ventricular rate is 69 Normal axis Normal QRS Normal QTC No ST T wave changes MDM Narrative Medical decision making narrative: Patient has a benign exam. Her labs are unremarkable. EKG is unremarkable. I feel given her labs in her presentation today that we can hold on any radiologic studies. Will have her continue all of her medications and contact her primary provider for follow-up. She was given return precautions. She expressed understanding and agreement. Discharge Plan Departure Patient Disposition: Home Clinical Impression: Cramp in muscle, Abdominal pain Instructions: Nocturnal Leg Cramps, DI for Abdominal Pain-Adult Activity Restrictions/Additional Instructions: Continue all of your medications as directed. Be sure to stay hydrated. Contact your primary provider for a follow-up. Return to the emergency department for any new or worsening symptoms Prescriptions: No Action multivitamin [Multiple Vitamins] 1 EACH tablet 1 tab PO QDAY Qty: 0 RF: 0 bupropion HCl 75 MG tablet 100 mg PO QAM Qty: 0 RF: 0 trazodone 50 MG tablet 50 mg PO HS Qty: 0 RF: 0 diazepam 2 mg Tablet 2 mg PO BID PRN (Reason: Anxiety) RF: 0 acetaminophen 650 mg Tablet Extended Release 650 mg PO Q12H RF: 0 gabapentin 300 mg Capsule 300 mg PO TID RF: 0 magnesium, potassium aspartate 250-250 mg Capsule 1 cap PO QID RF: 0 methocarbamol 750 mg Tablet 750 mg PO QID RF: 0 vitamin E 400 unit Capsule 400 unit PO DAILY RF: 0 cholecalciferol (vitamin D3) 25 mcg (1,000 unit) Capsule 25 mcg PO DAILY RF: 0 Pepto-Bismol 262 mg Tablet 2 tab PO Q1H RF: 0 pantoprazole 40 mg tablet,delayed release (DR/EC) 40 mg PO DAILY Qty: 30 RF: 0 ferrous sulfate 325 mg (65 mg iron) tablet 325 mg PO DAILY Qty: 30 RF: 0 Referrals: Tera Chand MD [Primary Care Provider] -
[2020-10-17 12:30] VITALS: BP 116/80; PULSE 78; RESP 18; O2SAT 99
[2020-10-17 13:23] VITALS: BP 124/80; PULSE 89; RESP 17; O2SAT 98
[2020-10-17 13:24] VITALS: BP 124/80; PULSE 60; RESP 18; O2SAT 100
== END 2020-10-17 13:50 | disposition home or self-care (01) ==
PROVIDERS: Emergency Provider Emergency Medicine; Family Provider Internal Medicine; PCP Internal Medicine
DX: R10.30 Lower abdominal pain, unspecified (principal); G47.62 Sleep related leg cramps; R19.7 Diarrhea, unspecified; R07.9 Chest pain, unspecified; R53.83 Other fatigue
CPT/HCPCS: 36415; 80053; 83690; 83735; 85025; 93005; 93010; 96360; 99284

== ENCOUNTER → 2021-01-13 14:03 | Outpatient (CLI) | payer BC, SELFPAY ==
[2019-12-29 16:54] VITALS: BMI 29.2
[2021-01-13 16:56] LABS: COVID19 -Nasal RAPID Negative (Negative)
== END ==
PROVIDERS: Family Provider Internal Medicine; PCP Internal Medicine; Visit Provider Nurse Practitioner Family
DX: Z20.822 Contact with and (suspected) exposure to COVID-19 (principal); Z01.812 Encounter for preprocedural laboratory examination
CPT/HCPCS: 87635

== ENCOUNTER 2021-01-14 13:25 | Day surgery (SDC) | payer BC, SELFPAY ==
[2019-12-29 16:54] VITALS: BMI 29.2
[2021-01-14] VITALS (7 sets, daily range): BP systolic 119–145; BP diastolic 74–93; PULSE 61–69; RESP 16–20; TEMP 36.2–36.6; O2SAT 96–98; BMI 28.0
--- NOTE | 2021-01-14 | PATH_ITS ---
[facility] Accession Number: [id number] . 01 Material submitted: . colon - HEPATIC FLEXURE POLYP X2 . 02 Diagnosis: Hepatic Flexure Polyps, Biopsies: Tubular adenoma x2. MRV 01/16/2021 1137 Local . 02 Electronically signed: . Kevon Mckeon MD, PhD, Pathologist NPI- [id number] . 01 Gross description: . HEPATIC FLEXURE POLYP X2: Received in formalin are 2 fragment(s) of sutton, soft tissue measuring 0.5 x 0.2 x 0.2 cm to 0.3 x 0.2 x 0.2 cm submitted entirely in 1 cassette(s) /EVELINA 01/15/2021 0505 Local . 02 Pathologist provided ICD-10: D12.3 . 02 CPT . 715203 Performed at: 01 [facility] [address] [id number] MD Dalton Carrington MD Phone: [phone] Performed at: 02 [facility] [address] [place], [place] [id number] MD Antonieta Devine MD Phone: [phone]
[2021-01-14] MEDS: SODIUM CHLORIDE 0.9% 1,000 ML 84 ML IV (14:40)
--- NOTE | 2021-01-14 15:15 | P.HP_ITS ---
History of Present Illness History of Present Illness Date Patient Seen: 01/14/21 Time Patient Seen: 15:16 Chief complaint: [facility] Narrative: I reviewed my note from December 02, 2020. The patient at this time is asymptomatic. It looks like she was scheduled only for colonoscopy today. She would like to proceed with just the colonoscopy and not both EGD/colon as was discussed back in November. She is overall doing much better and attributes her improved health to the improved mental health of her daughter. Colonoscopy alone is therefore pursued today. Personal history of colon polyps. Patient History Medical History Depression Vertigo Surgical History History of left knee surgery History of right knee surgery Family & Social History Family History Father Alcoholic Mother No significant medical problems Sister No significant medical problems Social History: household members spouse,children Tobacco & Substance use: Smoking Status Never smoker alcohol intake never Substance Use Type does not use Meds Home Medications and Allergies Home Medications Medication Instructions Recorded Confirmed Type bupropion HCl 75 mg tablet 100 mg PO QAM #0 08/01/11 12/29/19 History multivitamin (Multiple Vitamins) 1 tab PO QDAY #0 08/01/11 12/29/19 History trazodone 50 mg tablet 50 mg PO HS #0 05/19/17 12/29/19 History acetaminophen 650 mg 650 mg PO Q12H 12/29/19 12/29/19 History tablet,extended release cholecalciferol (vitamin D3) 25 25 mcg PO DAILY 12/29/19 12/29/19 History mcg (1,000 unit) capsule diazepam 2 mg tablet 2 mg PO BID PRN 12/29/19 12/29/19 History vitamin E 400 unit capsule 400 unit PO DAILY 12/29/19 12/29/19 History ferrous sulfate 325 mg (65 mg 325 mg PO DAILY #30 tab 12/30/19 Rx iron) tablet Allergies Allergy/AdvReac Type Severity Reaction Status Date / Time cephalexin [CEPHALEXIN] Allergy Severe RASH/HIVES Verified 01/14/21 14:24 cyclobenzaprine Allergy Severe Hives Verified 01/14/21 14:24 [From Flexeril] hydrocodone AdvReac Intermediate Vomiting Verified 01/14/21 14:24 Review of Systems Review of Systems ROS: Yes All systems reviewed with the patient and are negative except as otherwise documented Exam Vital Signs (past 8 hours): - 01/14/21 14:27 Temperature 97.9 F Pulse Rate 69 Respiratory Rate 16 Blood Pressure 143/89 H Pulse Oximetry 98 Oxygen Delivery Method Room Air Const General: cooperative and comfortable Orientation: alert HENMT Head: normocephalic Ears: external ears normal Nose: external nose normal Face and sinus: normal facial exam Mouth: oral mucosae normal Eyes General: appearance normal, both eyes and all related structures Neck Neck: normal visual inspection Chest Chest: normal inspection of the chest Resp Effort & Inspection: normal respiratory effort Auscultation: clear to auscultation bilaterally Cardio Rate: regular rate Rhythm: regular rhythm Heart Sounds: no murmurs GI Inspection: normal to inspection Palpation: soft and No tender Auscultation: normal bowel sounds Skin General: no rashes or lesions noted and No jaundice Neuro General: patient alert and moves all extremities Cognition: normal cognition Speech: speech normal Extrem General: no pedal edema Psych Appearance: grossly normal Assessment & Plan Assessment & Plan narrative: Personal history of colon polyps. Colonoscopy is planned for today. EGD was declined at this time. Time Spent With Patient Critical Care time: I spent a total of [] minutes of critical care time on this patient's care today; this time is exclusive of procedural time.
--- NOTE | 2021-01-14 15:18 | PM.PREOP ---
Pre-operative Note COVID-19 COVID-19 status: Negative Result date/Date tested (Pos, Neg/Pending): 01/13/21 Interval Note History & Physical reviewed/Exam performed by Physician: Yes Changes to H&P: Yes ASA Class (for procedural sedation): II
--- NOTE | 2021-01-14 16:32 | P.OP.COLON_ITS ---
Operative Date/Time/Diagnoses Date of procedure: 01/14/21 Time of procedure: 16:32 Pre-op diagnosis: Personal history of colon polyps Post-op diagnosis: same Procedure & Clinicians Study performed: Colonoscopy with hot snare polypectomy and cold forceps polypectomy Same procedure as scheduled: Yes Indications: Personal history of colon polyps Surgeon: Alvaro Capellan Procedure Notes SCOAP/Timeout: Done Procedure in detail: After the risks and benefits were explained, written and verbal informed consent was obtained. The patient was brought into the procedure room and placed into the left lateral decubitus position. Please see nurse screen printing machine operator helper note for sedation details. Digital rectal examination was accomplished. The scope was introduced into the patient and advanced under direct visualization to the cecum as identified by the appendiceal orifice and ileocecal valve. The scope was slowly withdrawn to carefully examine the mucosa for any defects or lesions. Comprehensive imaging was accomplished throughout the rectum including the dentate line. The colon was decompressed, the scope was then removed from the patient who tolerated the procedure well. Bowel prep adequate Pediatric colonoscope Scope withdrawal time: 7 minutes Sedation minutes: 21 Complications: none Impression: There were scattered diverticula throughout the left colon. The hepatic flexure there was a diminutive polyp removed with cold forceps and a slightly larger 5-6 mm sessile polyp removed with hot snare. No additional pathology was appreciated throughout. Mild grade 1 internal nonbleeding nonthrombosed hemorrhoids. Endoscopic diagnosis 1. Colon polyps 2. Diverticulosis 3. Grade 1 hemorrhoids Post-procedure Recommendations: Colonoscopy in 5 years Plan for aftercare: 1. Await histopathology 2. Repeat colonoscopy 5 years. Disposition: PACU
== END 2021-01-14 17:25 | disposition home or self-care (01) ==
PROVIDERS: Family Provider Internal Medicine; PCP Internal Medicine; Referring Provider Internal Medicine Gastroenterology; Visit Provider Internal Medicine Gastroenterology
PROC: 0DJD8ZZ Inspection of Lower Intestinal Tract, Via Natural or Artificial Opening Endoscopic (ICD-10-PCS; CPT 45378; principal; 2021-01-14 14:30)
DX: Z12.11 Encounter for screening for malignant neoplasm of colon (principal); Z86.010 Personal history of colon polyps; K21.9 Gastro-esophageal reflux disease without esophagitis; F32.9 Major depressive disorder, single episode, unspecified; K64.0 First degree hemorrhoids; K57.30 Diverticulosis of large intestine without perforation or abscess without bleeding; D12.3 Benign neoplasm of transverse colon
CPT/HCPCS: 45385; 45380; J2704

== ENCOUNTER 2021-05-23 08:15 | Outpatient (RCR) | payer BC, SELFPAY ==
[2019-12-29 16:54] VITALS: BMI 29.2
--- NOTE | 2021-04-22 18:07 | PT.OIE ---
Current Diagnoses Pain in right shoulder (04/22/21) Radiculopathy, cervical region (04/22/21) Muscle weakness (generalized) (04/22/21) Past Medical History (Last Reviewed 01/14/21 @ 15:17 by Alvaro Capellan MD) Depression History of left knee surgery History of right knee surgery Vertigo Past Surgical History (Last Reviewed 01/14/21 @ 15:17 by Alvaro Capellan MD) History of left knee surgery History of right knee surgery Visit Care Team Role Provider Type Sheri Christopher PA-C Referring Provider Non-Staff Specialty: Internal Medicine Address: [address] [place] [address] Email: [email or web address] Asa Regalado MD Attending Provider Non-Staff Family Provider Primary Care Provider Specialty: Internal Medicine Address: [address] [place] [address], [facility] Email: Physical Therapy Initial Evaluation PT-OP-A Visit Information Start: 04/18/21 18:16 Freq: Status: Active Protocol: Document 04/22/21 08:18 LRN (Rec: 04/22/21 09:06 LRN [id number]) Out-Patient Physical Therapy Visit Information Visit Information Visit Type Initial Evaluation Visit Start Time 08:19 Visit Stop Time 09:03 Total Visit Minutes 44 Visit Number 1 Evaluation Information Evaluation Date 04/22/21 Precautions Precautions Osteoporosis,ACL repair of both knees, arthritis of R hip and both knees. PT-OP-B Current Condition Start: 04/18/21 18:16 Freq: Status: Active Protocol: Document 04/22/21 08:18 LRN (Rec: 04/22/21 09:06 LRN [id number]) Current Condition History of Current Condition Onset Date 04/07/21 Current Complaints R neck, upper shldr, intense pn at top of shldr, posterior elbow/brachium History of Current Condition Pain is worse with use of arms . Pt reports she was helping son move to and put backpack on R shoulder and the packpack slid off the shoulder onto the elbow. Carried it on the elbow, then on the ride home she started to feel pain down the back of the R brachium to the elbow. After a couple days had R arm pain and intense pain at the R elbow. Now has stiffness in the shoulder blades and neck. Getting a back spasm under the R scapula. Started to have pain in the L neck and upper shoulder a week ago (a week after it happened started to get sore shoulders and a puffy feeling). She is having a lot of pain at night. Her L side is minor. Prior Treatments and Tests None Pt self treatments: Uses ice pack during the day and at night. Taking Tylenol occasionally. Takes back spasm medications occasionally . 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 Treatment Goals Patient/Caregiver Goals Pt goal is: to be able to use mouse and writing with hand without R shoulder pain. to be able to use R arm ( cooking), dressing. Prior Functional Status Baseline Function- ADL's Independent Baseline Function- Mobility Independent Baseline Function- Other Pain in neck and shoulders after doing a lot of home cooking, pain is 6/10 dull pain level 4-6 takes metilcarpinol for a few days, if it doesn't fix it, then she takes diazapin to go to bed and itll resolve after a couple days (along with Tylenol). ................... 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 Personal Factors Other Personal Factors That May Effect Osteoporosis, back pain. Therapy/Recovery Spouse is radiologist. PT-OP-C Subjective Start: 04/18/21 18:16 Freq: Status: Active Protocol: Document 04/22/21 08:18 LRN (Rec: 04/22/21 09:06 LRN [id number]) Patient Questionnaires Quick Dash- Upper Extremity Quick Dash UE Score 81.81 Quick Dash UE Impairment 80 to 99% Impaired (Score 80- 99) OP-PT Pain Assessment Pain Assessment Grid Paper Pain Assessment Grid Completed Yes Location R Shoulder Pain Location Details Shldr blade achy/hard, top and down back sharp and stabbing, arm dull throb Intensity 9 Scale Used Numeric (0 - 10) Description Aching,Dull,Sharp,Shooting, Tightness,Throbbing Frequency Constant Pain Aggravating Factors ADL's,Activity Other Pain Aggravating Factors Sleeping sitting up with ice. Pain Alleviating Factors Cold,Lying Supine,Position Other Pain Alleviating Factors Medications, Epsom salt bath. MAIN Fitch told not to use heat. PT-OP-E Functional Tests Start: 04/18/21 18:16 Freq: Status: Active Protocol: Document 04/22/21 08:18 LRN (Rec: 04/22/21 09:06 LRN [id number]) Functional Tests Apley's Scratch Test Action 1- Left Below spine of scapula Action 1- Right Below anterior shoulder Action 2- Left T4 Action 2- Right T1 Action 3- Left T7 Action 3- Right T11 PT-OP-H Neuro Start: 04/18/21 18:16 Freq: Status: Active Protocol: Document 04/22/21 08:18 LRN (Rec: 04/22/21 09:06 LRN [id number]) Sensation Evaluation Gross Sensation Gross Sensation WNL PT-OP-J Posture/Palpation/Skin Start: 04/18/21 18:16 Freq: Status: Active Protocol: Document 04/22/21 08:18 LRN (Rec: 04/22/21 09:06 LRN [id number]) Posture Evaluation Position Standing Head/C-Spine Posture Forward Head T-Spine Posture Increased Kyphosis L-Spine Posture Decreased Lordosis Scapula Posture (R) Rotated Down,(R) Depressed Arm Posture (L) Internally Rotated,(R) Internally Rotated Pelvis Posture Posterior Tilted Weight Distribution Balanced Knee Posture (L) Genu Varus,(R) Genu Varus Comments Posture Comments R shoulder & scapula low, head/neck shifted right. Palpation Assessment Location R intrascapular region Palpation Location Rhomboids Palpation Details Atrophy R intrascapular region PT-OP-K Range of Motion Start: 04/18/21 18:16 Freq: Status: Active Protocol: Document 04/22/21 08:18 LRN (Rec: 04/22/21 09:06 LRN [id number]) Cervical Spine Range of Motion Cervical Spine Active Degrees Testing Position Sitting Flexion 25 Extension 17 Rotation Left 35 Rotation Right 37 Lateral Flexion Left 32 Lateral Flexion Right 15 ROM Limitations Pain Shoulder Goniometric Range of Motion Shoulder Left Passive Shoulder ROM WFL Yes Testing Position Supine Flexion 180 External Rotation at 90 degrees 90 Abduction Right Passive Shoulder ROM WFL No Testing Position Supine Flexion 110 External Rotation at 90 degrees 45 Abduction Right Active Shoulder ROM WFL No Testing Position Sitting Flexion 107 Extension 62 Abduction 128 Internal Rotation Behind Back (text) T11 Left Active Shoulder ROM WFL Yes Testing Position Sitting Flexion 155 Extension 63 Abduction 180 Internal Rotation Behind Back (text) T7 PT-OP-M Strength Start: 04/18/21 18:16 Freq: Status: Active Protocol: Document 04/22/21 08:18 LRN (Rec: 04/22/21 09:06 LRN [id number]) Cervical Spine Strength Cervical Spine Manual Muscle Testing Flexion (C1-2) 5 Normal Extension 5 Normal Lateral Flexion Left (C3) 5 Normal Lateral Flexion Right (C3) 5 Normal Comments Pain relief with ext, Pain with R SB. Shoulder Strength Shoulder Manual Muscle Testing Right Flexion 5 Normal Extension 5 Normal Abduction (C5) 5 Normal Adduction 5 Normal External Rotation 5 Normal Internal Rotation 3 Fair Comments Pain with testing of IR, ext. Left Comments Generally 5/5 with all muscle groups PT-OP-Q Treatments Start: 04/18/21 18:16 Freq: Status: Active Protocol: Document 04/22/21 08:18 LRN (Rec: 04/22/21 09:06 LRN [id number]) Self-Care/Home Management Treatment Education Other Education Discussed results of evaluation, goals, and plan of care (POC). Pt agreeable to goals and POC. Activities Self-Care/Home Management Activities I/S pt in R shoulder supported flex stretch on wall or on table. Pt cautioned to not stretch into pain. Pt I/S to use MH and Cryotherapy and to determine best modality (MH for neural comfort vs ice for soft tissue comfort?). PT-OP-T Assessment and Plan Start: 04/18/21 18:16 Freq: Status: Active Protocol: Document 04/22/21 08:18 LRN (Rec: 04/22/21 09:06 LRN [id number]) Physical Therapy Assessment Rehab Potential Rehabilitation Potential Good Evaluation Complexity Number of Personal Factors/Comorbidities 1-2 Number of Body Systems Impaired 3 Clinical Presentation at Evaluation Evolving Impairments Impairments Activity Tolerance,Functional Activities,Pain,Posture,ROM, Soft Tissue Mobility,Strength Goals Three Impairment Decreased functional strength. Care Home Goal (LTG) Pt will be able to use R arm ( cooking) LTG Duration 06/21/21 Two Impairment Decreased ROM Short Term Goal (STG) Pt will be able to use mouse and write without R shoulder pain. STG Duration 05/22/21 Housekeeper Nanny Goal (LTG) Pt will be able to dress without pain. LTG Duration 06/21/21 One Impairment Pt lacks appropriate self care HEP Short Term Goal (STG) Educate pt on proper body mechanics & transfer techniques. STG Duration 04/29/21 Housekeeper Nanny Goal (LTG) Pt will be independent with a progressive self care HEP. LTG Duration 07/21/21 Assessment Summary Assessment Pt presents with soft tissue injury of the R subscapularis with possible tear and possible cerivcal involvement. Pt had inconsistent results that limits ruling out cerivcal involvement. She has ms spasm of R subscap and much muscle guarding of the R shoulder and scapular complex. The pt will benefit from skilled physical therapy to achieve the above stated goals . Use of modalitites will probably be very beneficial to help reduce the muscle guarding pain pain. Physical Therapy Plan Frequency and Duration Frequency of Treatment 2x/Week Plan of Care Start Date 04/22/21 Plan of Care End Date 07/21/21 Therapeutic Interventions Therapeutic Interventions Home Exercise Program,Manual Therapy,Patient/Caregiver Education,Self-Care/Home Management,Soft Tissue Mobilization,Taping, Therapeutic Activities, Therapeutic Exercises Modalities Cold Pack/Ice Massage,Electric Stimulation,Hot Packs, Ultrasound Next Visit Focus/Plan Next Note Type Treatment Note Next Visit Plan Review of pt's current HEP. Manual therapy: Prone: STM of R shoulder/scapular complex to reduce pain Therapeutic ex: R shoulder passive, active assisted and active Gentle ROM (flex, ER) with HEP if needed. Modalities: MH/EStim for pain and ms relaxation. Progress for full R shoulder ROM and slow progression of RC strength.
--- NOTE | 2021-04-22 18:07 | PT.OPPOC ---
Physical, Occupational & Speech Therapy At [facility] Current Diagnoses Pain in right shoulder (04/22/21) Radiculopathy, cervical region (04/22/21) Muscle weakness (generalized) (04/22/21) Visit Care Team Role Provider Type Sheri Christopher PA-C Referring Provider Non-Staff Specialty: Internal Medicine Address: [address] [place] [address], [id number] Email: [email or web address] Asa Regalado MD Attending Provider Non-Staff Family Provider Primary Care Provider Specialty: Internal Medicine Address: [address] [place] [address], [id number] Email: Plan Of Care PT-OP-T Assessment and Plan Start: 04/18/21 18:16 Freq: Status: Active Protocol: Document 04/22/21 08:18 LRN (Rec: 04/22/21 09:06 LRN [id number]) Physical Therapy Assessment Rehab Potential Rehabilitation Potential Good Evaluation Complexity Number of Personal Factors/Comorbidities 1-2 Number of Body Systems Impaired 3 Clinical Presentation at Evaluation Evolving Impairments Impairments Activity Tolerance,Functional Activities,Pain,Posture,ROM, Soft Tissue Mobility,Strength Goals Three Impairment Decreased functional strength. Director Utilization Management Goal (LTG) Pt will be able to use R arm ( cooking) LTG Duration 06/21/21 Two Impairment Decreased ROM Short Term Goal (STG) Pt will be able to use mouse and write without R shoulder pain. STG Duration 05/22/21 Group Home Goal (LTG) Pt will be able to dress without pain. LTG Duration 06/21/21 One Impairment Pt lacks appropriate self care HEP Short Term Goal (STG) Educate pt on proper body mechanics & transfer techniques. STG Duration 04/29/21 Director Utilization Management Goal (LTG) Pt will be independent with a progressive self care HEP. LTG Duration 07/21/21 Assessment Summary Assessment Pt presents with soft tissue injury of the R subscapularis with possible tear and possible cerivcal involvement. Pt had inconsistent results that limits ruling out cerivcal involvement. She has ms spasm of R subscap and much muscle guarding of the R shoulder and scapular complex. The pt will benefit from skilled physical therapy to achieve the above stated goals . Use of modalitites will probably be very beneficial to help reduce the muscle guarding pain pain. Physical Therapy Plan Frequency and Duration Frequency of Treatment 2x/Week Plan of Care Start Date 04/22/21 Plan of Care End Date 07/21/21 Therapeutic Interventions Therapeutic Interventions Home Exercise Program,Manual Therapy,Patient/Caregiver Education,Self-Care/Home Management,Soft Tissue Mobilization,Taping, Therapeutic Activities, Therapeutic Exercises Modalities Cold Pack/Ice Massage,Electric Stimulation,Hot Packs, Ultrasound Next Visit Focus/Plan Next Note Type Treatment Note Next Visit Plan Review of pt's current HEP. Manual therapy: Prone: STM of R shoulder/scapular complex to reduce pain Therapeutic ex: R shoulder passive, active assisted and active Gentle ROM (flex, ER) with HEP if needed. Modalities: MH/EStim for pain and ms relaxation. Progress for full R shoulder ROM and slow progression of RC strength. Plan of Care Dates Plan of Care Start Date 04/22/21 Plan of Care End Date 07/21/21 Electronically Signed by: Lucila Murphy, PT 04/22/21 [id number] Please Sign and Return: I have reviewed this Plan of Care and certify that the skilled therapy services above are required to meet the patient?s needs. Physician Signature Date Printed Name and Credentials Clinical Instructor Signature Printed Name and Credentials
--- NOTE | 2021-04-24 09:23 | PT.OTN ---
Current Diagnoses Pain in right shoulder (04/24/21) Radiculopathy, cervical region (04/24/21) Muscle weakness (generalized) (04/24/21) Physical Therapy Treatment Note PT-OP-A Visit Information Start: 04/18/21 18:16 Freq: Status: Active Protocol: Document 04/24/21 08:17 LRN (Rec: 04/24/21 09:05 LRN [id number]) Out-Patient Physical Therapy Visit Information Visit Information Visit Type Treatment Note Visit Start Time 08:17 Visit Stop Time 09:02 Total Visit Minutes 45 Visit Number 2 Evaluation Information Evaluation Date 04/22/21 Precautions Precautions Osteoporosis,ACL repair of both knees, arthritis of R hip and both knees. PT-OP-B Current Condition Start: 04/18/21 18:16 Freq: Status: Active Protocol: Document 04/22/21 08:18 LRN (Rec: 04/22/21 09:06 LRN [id number]) Current Condition History of Current Condition Onset Date 04/07/21 Current Complaints R neck, upper shldr, intense pn at top of shldr, posterior elbow/brachium History of Current Condition Pain is worse with use of arms . Pt reports she was helping son move to and put backpack on R shoulder and the packpack slid off the shoulder onto the elbow. Carried it on the elbow, then on the ride home she started to feel pain down the back of the R brachium to the elbow. After a couple days had R arm pain and intense pain at the R elbow. Now has stiffness in the shoulder blades and neck. Getting a back spasm under the R scapula. Started to have pain in the L neck and upper shoulder a week ago (a week after it happened started to get sore shoulders and a puffy feeling). She is having a lot of pain at night. Her L side is minor. Prior Treatments and Tests None Pt self treatments: Uses ice pack during the day and at night. Taking Tylenol occasionally. Takes back spasm medications occasionally . 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 Treatment Goals Patient/Caregiver Goals Pt goal is: to be able to use mouse and writing with hand without R shoulder pain. to be able to use R arm ( cooking), dressing. Prior Functional Status Baseline Function- ADL's Independent Baseline Function- Mobility Independent Baseline Function- Other Pain in neck and shoulders after doing a lot of home cooking, pain is 6/10 dull pain level 4-6 takes metilcarpinol for a few days, if it doesn't fix it, then she takes diazapin to go to bed and itll resolve after a couple days (along with Tylenol). ................... 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 Personal Factors Other Personal Factors That May Effect Osteoporosis, back pain. Therapy/Recovery Spouse is radiologist. PT-OP-C Subjective Start: 04/18/21 18:16 Freq: Status: Active Protocol: Document 04/24/21 08:17 LRN (Rec: 04/24/21 09:05 LRN [id number]) OP-PT Subjective Patient Comments Patient Comments No change. Doing ex (shoulder flex with heat). States pain: at start 5-6/10, after treatment 04/14. PT-OP-E Functional Tests Start: 04/18/21 18:16 Freq: Status: Active Protocol: Document 04/22/21 08:18 LRN (Rec: 04/22/21 09:06 LRN [id number]) Functional Tests Apley's Scratch Test Action 1- Left Below spine of scapula Action 1- Right Below anterior shoulder Action 2- Left T4 Action 2- Right T1 Action 3- Left T7 Action 3- Right T11 PT-OP-H Neuro Start: 04/18/21 18:16 Freq: Status: Active Protocol: Document 04/22/21 08:18 LRN (Rec: 04/22/21 09:06 LRN [id number]) Sensation Evaluation Gross Sensation Gross Sensation WNL PT-OP-J Posture/Palpation/Skin Start: 04/18/21 18:16 Freq: Status: Active Protocol: Document 04/22/21 08:18 LRN (Rec: 04/22/21 09:06 LRN [id number]) Posture Evaluation Position Standing Head/C-Spine Posture Forward Head T-Spine Posture Increased Kyphosis L-Spine Posture Decreased Lordosis Scapula Posture (R) Rotated Down,(R) Depressed Arm Posture (L) Internally Rotated,(R) Internally Rotated Pelvis Posture Posterior Tilted Weight Distribution Balanced Knee Posture (L) Genu Varus,(R) Genu Varus Comments Posture Comments R shoulder & scapula low, head/neck shifted right. Palpation Assessment Location R intrascapular region Palpation Location Rhomboids Palpation Details Atrophy R intrascapular region PT-OP-K Range of Motion Start: 04/18/21 18:16 Freq: Status: Active Protocol: Document 04/22/21 08:18 LRN (Rec: 04/22/21 09:06 LRN [id number]) Cervical Spine Range of Motion Cervical Spine Active Degrees Testing Position Sitting Flexion 25 Extension 17 Rotation Left 35 Rotation Right 37 Lateral Flexion Left 32 Lateral Flexion Right 15 ROM Limitations Pain Shoulder Goniometric Range of Motion Shoulder Left Passive Shoulder ROM WFL Yes Testing Position Supine Flexion 180 External Rotation at 90 degrees 90 Abduction Right Passive Shoulder ROM WFL No Testing Position Supine Flexion 110 External Rotation at 90 degrees 45 Abduction Right Active Shoulder ROM WFL No Testing Position Sitting Flexion 107 Extension 62 Abduction 128 Internal Rotation Behind Back (text) T11 Left Active Shoulder ROM WFL Yes Testing Position Sitting Flexion 155 Extension 63 Abduction 180 Internal Rotation Behind Back (text) T7 PT-OP-M Strength Start: 04/18/21 18:16 Freq: Status: Active Protocol: Document 04/22/21 08:18 LRN (Rec: 04/22/21 09:06 LRN [id number]) Cervical Spine Strength Cervical Spine Manual Muscle Testing Flexion (C1-2) 5 Normal Extension 5 Normal Lateral Flexion Left (C3) 5 Normal Lateral Flexion Right (C3) 5 Normal Comments Pain relief with ext, Pain with R SB. Shoulder Strength Shoulder Manual Muscle Testing Right Flexion 5 Normal Extension 5 Normal Abduction (C5) 5 Normal Adduction 5 Normal External Rotation 5 Normal Internal Rotation 3 Fair Comments Pain with testing of IR, ext. Left Comments Generally 5/5 with all muscle groups PT-OP-Q Treatments Start: 04/18/21 18:16 Freq: Status: Active Protocol: Document 04/24/21 08:17 LRN (Rec: 04/24/21 09:05 LRN [id number]) Manual Therapy Treatment Soft Tissue Mobilization R Neck Body Location R neck Mobilization Type Strumming,Sustained Pressure Intensity/Depth Moderate Body Position Prone Comments Not able to fully relax paraspinals. R UT Mobilization Type Myofascial Release,Strumming, Sustained Pressure,Trigger Point Release Intensity/Depth Moderate Body Position Prone Posterior upper back Body Location Deltoid, teres major and minor . Mobilization Type Myofascial Release,Strumming, Sustained Pressure Intensity/Depth Moderate Body Position Prone Self-Care/Home Management Treatment Education Other Education 14' Postural training sitting at desk. 7' Sleeping posturing with using pillows to find max comfortable position for all positions, body mechanics for lifting, reaching, overhead. Activities Self-Care/Home Management Activities Issued & reviewed proper posturing and Codman's handouts. PT-OP-R Modalities Start: 04/18/21 18:16 Freq: Status: Active Protocol: Document 04/24/21 08:17 LRN (Rec: 04/24/21 09:05 LRN [id number]) Electric Stimulation Electric Stimulation Interferential Current (IFC) Body Location R Subscapularis [UT/Deltoid > Pec/Posterior R scapula] Duration (Minutes) 17 Combined With Heat/Cold Hot Pack Comments Pt semi-reclined Hot Pack/Cold Pack Treatment Hot Pack Location Back & R shoulder Treatment Duration (minutes) 17 Comments Pt in semi-reclined position. PT-OP-T Assessment and Plan Start: 04/18/21 18:16 Freq: Status: Active Protocol: Document 04/24/21 08:17 LRN (Rec: 04/24/21 09:05 LRN [id number]) Physical Therapy Assessment Goals Three Impairment Decreased functional strength. Commercial Underwriter Goal (LTG) Pt will be able to use R arm ( cooking) LTG Duration 06/21/21 Two Impairment Decreased ROM Short Term Goal (STG) Pt will be able to use mouse and write without R shoulder pain. STG Duration 05/22/21 Commercial Underwriter Goal (LTG) Pt will be able to dress without pain. LTG Duration 06/21/21 One Impairment Pt lacks appropriate self care HEP Short Term Goal (STG) Educate pt on proper body mechanics & transfer techniques. STG Duration 04/29/21 (04/24/21: MET GOAL) Commercial Underwriter Goal (LTG) Pt will be independent with a progressive self care HEP. LTG Duration 07/21/21 Progress Towards Goals Progress Comments Decrease pain with MH/EStim from 08/12 to 04/14. Assessment Summary Assessment Pt with soft tissue injury of the R subscapularis with possible tear and possible cervical involvement. Pt does not have problems with home shoulder flex ex. She had + response to MH/EStim with pain decreasing from 5/10 to 1/10. Pt's R arm was comfortable in prone with arms by sides in W-position (ER). Pt very tender at R Supraspinatus & UT . She is in protective posturing R shoulder (forward rolled). Codman's ex relieves the pain. Pt appears to have a good understanding of best positioning for computer work and semi-reclined position. Physical Therapy Plan Frequency and Duration Frequency of Treatment 2x/Week Plan of Care Start Date 04/22/21 Plan of Care End Date 07/21/21 Next Visit Focus/Plan Next Note Type Treatment Note Next Visit Plan Assess response to postural/ body mechanics changes, Codman 's ex, and lasting effects of MH/ES. Manual therapy: Prone: STM of R neck/UT reduce pain Therapeutic ex: R shoulder passive, active assisted and active Gentle ROM (flex, ER) with HEP if needed. Modalities: MH/EStim for pain and ms relaxation. Progress for full R shoulder ROM and slow progression of RC strength.
--- NOTE | 2021-04-28 10:23 | PT.OTN ---
Current Diagnoses Pain in right shoulder (04/28/21) Radiculopathy, cervical region (04/28/21) Muscle weakness (generalized) (04/28/21) Physical Therapy Treatment Note PT-OP-A Visit Information Start: 04/18/21 18:16 Freq: Status: Active Protocol: Document 04/28/21 08:17 LRN (Rec: 04/28/21 10:20 LRN [id number]) Out-Patient Physical Therapy Visit Information Visit Information Visit Type Treatment Note Visit Start Time 08:18 Visit Stop Time 09:02 Total Visit Minutes 44 Visit Number 3 Evaluation Information Evaluation Date 04/22/21 Precautions Precautions Osteoporosis,ACL repair of both knees, arthritis of R hip and both knees. PT-OP-B Current Condition Start: 04/18/21 18:16 Freq: Status: Active Protocol: Document 04/22/21 08:18 LRN (Rec: 04/22/21 09:06 LRN [id number]) Current Condition History of Current Condition Onset Date 04/07/21 Current Complaints R neck, upper shldr, intense pn at top of shldr, posterior elbow/brachium History of Current Condition Pain is worse with use of arms . Pt reports she was helping son move to and put backpack on R shoulder and the packpack slid off the shoulder onto the elbow. Carried it on the elbow, then on the ride home she started to feel pain down the back of the R brachium to the elbow. After a couple days had R arm pain and intense pain at the R elbow. Now has stiffness in the shoulder blades and neck. Getting a back spasm under the R scapula. Started to have pain in the L neck and upper shoulder a week ago (a week after it happened started to get sore shoulders and a puffy feeling). She is having a lot of pain at night. Her L side is minor. Prior Treatments and Tests None Pt self treatments: Uses ice pack during the day and at night. Taking Tylenol occasionally. Takes back spasm medications occasionally . 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 Treatment Goals Patient/Caregiver Goals Pt goal is: to be able to use mouse and writing with hand without R shoulder pain. to be able to use R arm ( cooking), dressing. Prior Functional Status Baseline Function- ADL's Independent Baseline Function- Mobility Independent Baseline Function- Other Pain in neck and shoulders after doing a lot of home cooking, pain is 6/10 dull pain level 4-6 takes metilcarpinol for a few days, if it doesn't fix it, then she takes diazapin to go to bed and itll resolve after a couple days (along with Tylenol). 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 Personal Factors Other Personal Factors That May Effect Osteoporosis, back pain. Therapy/Recovery Spouse is radiologist. PT-OP-C Subjective Start: 04/18/21 18:16 Freq: Status: Active Protocol: Document 04/28/21 08:17 LRN (Rec: 04/28/21 10:20 LRN [id number]) OP-PT Subjective Patient Comments Patient Comments Sleeping in bed. Less pain. Still has pain R subacromial, , UT & under scapula when usng her computer mouse. Today pain in R shoulder is 2/10. After E-Stim, felt sore on top of scapula, like it was overworked, pain was decreased to 1/10. In morning pain is less than through the day. PT-OP-E Functional Tests Start: 04/18/21 18:16 Freq: Status: Active Protocol: Document 04/22/21 08:18 LRN (Rec: 04/22/21 09:06 LRN [id number]) Functional Tests Apley's Scratch Test Action 1- Left Below spine of scapula Action 1- Right Below anterior shoulder Action 2- Left T4 Action 2- Right T1 Action 3- Left T7 Action 3- Right T11 PT-OP-H Neuro Start: 04/18/21 18:16 Freq: Status: Active Protocol: Document 04/22/21 08:18 LRN (Rec: 04/22/21 09:06 LRN [id number]) Sensation Evaluation Gross Sensation Gross Sensation WNL PT-OP-J Posture/Palpation/Skin Start: 04/18/21 18:16 Freq: Status: Active Protocol: Document 04/22/21 08:18 LRN (Rec: 04/22/21 09:06 LRN [id number]) Posture Evaluation Position Standing Head/C-Spine Posture Forward Head T-Spine Posture Increased Kyphosis L-Spine Posture Decreased Lordosis Scapula Posture (R) Rotated Down,(R) Depressed Arm Posture (L) Internally Rotated,(R) Internally Rotated Pelvis Posture Posterior Tilted Weight Distribution Balanced Knee Posture (L) Genu Varus,(R) Genu Varus Comments Posture Comments R shoulder & scapula low, head/neck shifted right. Palpation Assessment Location R intrascapular region Palpation Location Rhomboids Palpation Details Atrophy R intrascapular region PT-OP-K Range of Motion Start: 04/18/21 18:16 Freq: Status: Active Protocol: Document 04/22/21 08:18 LRN (Rec: 04/22/21 09:06 LRN [id number]) Cervical Spine Range of Motion Cervical Spine Active Degrees Testing Position Sitting Flexion 25 Extension 17 Rotation Left 35 Rotation Right 37 Lateral Flexion Left 32 Lateral Flexion Right 15 ROM Limitations Pain Shoulder Goniometric Range of Motion Shoulder Left Passive Shoulder ROM WFL Yes Testing Position Supine Flexion 180 External Rotation at 90 degrees 90 Abduction Right Passive Shoulder ROM WFL No Testing Position Supine Flexion 110 External Rotation at 90 degrees 45 Abduction Right Active Shoulder ROM WFL No Testing Position Sitting Flexion 107 Extension 62 Abduction 128 Internal Rotation Behind Back (text) T11 Left Active Shoulder ROM WFL Yes Testing Position Sitting Flexion 155 Extension 63 Abduction 180 Internal Rotation Behind Back (text) T7 PT-OP-L Special Tests Start: 04/18/21 18:16 Freq: Status: Active Protocol: Document 04/28/21 08:17 LRN (Rec: 04/28/21 10:20 LRN [id number]) Special Tests Cervical Spine Special Tests Traction Test Results postive Foraminal Compression Test Results neg Spurling's Test Test Results neg PT-OP-M Strength Start: 04/18/21 18:16 Freq: Status: Active Protocol: Document 04/22/21 08:18 LRN (Rec: 04/22/21 09:06 LRN [id number]) Cervical Spine Strength Cervical Spine Manual Muscle Testing Flexion (C1-2) 5 Normal Extension 5 Normal Lateral Flexion Left (C3) 5 Normal Lateral Flexion Right (C3) 5 Normal Comments Pain relief with ext, Pain with R SB. Shoulder Strength Shoulder Manual Muscle Testing Right Flexion 5 Normal Extension 5 Normal Abduction (C5) 5 Normal Adduction 5 Normal External Rotation 5 Normal Internal Rotation 3 Fair Comments Pain with testing of IR, ext. Left Comments Generally 5/5 with all muscle groups PT-OP-Q Treatments Start: 04/18/21 18:16 Freq: Status: Active Protocol: Document 04/28/21 08:17 LRN (Rec: 04/28/21 10:20 LRN [id number]) Therapeutic Exercises Sitting Exercises Chin Tuck Sitting Exercise Name Augie hold Reps/Minutes 2'x 3 (3 different times) Manual Therapy Treatment Soft Tissue Mobilization R Neck Body Location Neck juancarlos: L paraspinals, R interspinus ms Mobilization Type Sustained Pressure Intensity/Depth Moderate Body Position Supine Comments Balancing of neck R UT Body Location R UT Mobilization Type Myofascial Release,Strumming, Sustained Pressure,Trigger Point Release Intensity/Depth Moderate Body Position Prone Manual Traction Cervical Details 30 deg's elevation with positioning or minimal traction Body Position Supine Reps/Duration 8' Self-Care/Home Management Treatment Education Patient Education Posture Other Education Discussed head/neck positioning for sitting at computer. Activities Self-Care/Home Management Activities I/S & Education in home program for correct posturing for Chin tuck ex and for different daily activities. PT-OP-R Modalities Start: 04/18/21 18:16 Freq: Status: Active Protocol: Document 04/28/21 08:17 LRN (Rec: 04/28/21 10:20 LRN [id number]) Ultrasound Therapy Treatment R UT/Subacromial Treatment Duration (minutes) 8 Patient Position Sidelying Coupling Medium Ultrasound Gel Applicator Size (cm2) 2 Frequency Setting (mHz) 1 Mode Setting Pulsed Duty Cycle 50% Intensity Setting (w/cm2) 1.0 Comments 10' total time: Extra time to find best tolerated position (prone>L sidelie hugging pillow). PT-OP-T Assessment and Plan Start: 04/18/21 18:16 Freq: Status: Active Protocol: Document 04/28/21 08:17 LRN (Rec: 04/28/21 10:20 LRN [id number]) Physical Therapy Assessment Goals Three Impairment Decreased functional strength. Detention Goal (LTG) Pt will be able to use R arm ( cooking) LTG Duration 06/21/21 Two Impairment Decreased ROM Short Term Goal (STG) Pt will be able to use mouse and write without R shoulder pain. (04/28/21: Less R shoulder pain with use of mouse) STG Duration 05/22/21 (04/28/21: Progressing) Detention Goal (LTG) Pt will be able to dress without pain. LTG Duration 06/21/21 One Impairment Pt lacks appropriate self care HEP Short Term Goal (STG) Educate pt on proper body mechanics & transfer techniques. STG Duration 04/29/21 (04/24/21: MET GOAL) Detention Goal (LTG) Pt will be independent with a progressive self care HEP. (04/28/21: I/S pt in chin tuck c. augie ex & proper postioning at computer/ADLs). LTG Duration 07/21/21 (04/28/21: Progressed self care) Progress Towards Goals Progress Comments Relief of pain after treatment . Assessment Summary Assessment + response to pt changes in positioning of R arm with use of mouse & with today's treatment. No pain at end of treatment in the R shoulder posteriorly, upper and subacromial. Pt had + response to MH/EStim with lasting pain relief. Pt with soft tissue injury of the R subscapularis with possible tear and cervical involvement of nerve impingement relieved with positional or minimal traction. Physical Therapy Plan Frequency and Duration Frequency of Treatment 2x/Week Plan of Care Start Date 04/22/21 Plan of Care End Date 07/21/21 Next Visit Focus/Plan Next Note Type Treatment Note Next Visit Plan Assess response to chin tuck ex and changes in posture sleeping and at computer (non- position & eye level at computer). Add Codman's ex, and MH/ES. Manual therapy: Balancing of neck. Therapeutic ex: R shoulder passive, active assisted and active Gentle ROM (flex, ER) with HEP if needed. Modalities: MH/EStim for pain and ms relaxation. Progress for full R shoulder ROM and slow progression of RC strength.
--- NOTE | 2021-05-01 14:11 | PT.OTN ---
Current Diagnoses Pain in right shoulder (05/01/21) Radiculopathy, cervical region (05/01/21) Muscle weakness (generalized) (05/01/21) Physical Therapy Treatment Note PT-OP-A Visit Information Start: 04/18/21 18:16 Freq: Status: Active Protocol: Document 05/01/21 09:04 LRN (Rec: 05/01/21 09:43 LRN [id number]) Out-Patient Physical Therapy Visit Information Visit Information Visit Type Treatment Note Visit Start Time 09:04 Visit Stop Time 09:49 Total Visit Minutes 45 Visit Number 4 Evaluation Information Evaluation Date 04/22/21 Precautions Precautions Osteoporosis,ACL repair of both knees, arthritis of R hip and both knees. PT-OP-B Current Condition Start: 04/18/21 18:16 Freq: Status: Active Protocol: Document 04/22/21 08:18 LRN (Rec: 04/22/21 09:06 LRN [id number]) Current Condition History of Current Condition Onset Date 04/07/21 Current Complaints R neck, upper shldr, intense pn at top of shldr, posterior elbow/brachium History of Current Condition Pain is worse with use of arms . Pt reports she was helping son move to and put backpack on R shoulder and the packpack slid off the shoulder onto the elbow. Carried it on the elbow, then on the ride home she started to feel pain down the back of the R brachium to the elbow. After a couple days had R arm pain and intense pain at the R elbow. Now has stiffness in the shoulder blades and neck. Getting a back spasm under the R scapula. Started to have pain in the L neck and upper shoulder a week ago (a week after it happened started to get sore shoulders and a puffy feeling). She is having a lot of pain at night. Her L side is minor. Prior Treatments and Tests None Pt self treatments: Uses ice pack during the day and at night. Taking Tylenol occasionally. Takes back spasm medications occasionally . 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 Treatment Goals Patient/Caregiver Goals Pt goal is: to be able to use mouse and writing with hand without R shoulder pain. to be able to use R arm ( cooking), dressing. Prior Functional Status Baseline Function- ADL's Independent Baseline Function- Mobility Independent Baseline Function- Other Pain in neck and shoulders after doing a lot of home cooking, pain is 6/10 dull pain level 4-6 takes metilcarpinol for a few days, if it doesn't fix it, then she takes diazapin to go to bed and itll resolve after a couple days (along with Tylenol). 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 Personal Factors Other Personal Factors That May Effect Osteoporosis, back pain. Therapy/Recovery Spouse is radiologist. PT-OP-C Subjective Start: 04/18/21 18:16 Freq: Status: Active Protocol: Document 05/01/21 09:04 LRN (Rec: 05/01/21 09:43 LRN [id number]) OP-PT Subjective Patient Comments Patient Comments Slept through the night. Things are wonderful. Doesn't feel any pain at the moment. Able to work at computer with mouse straightforward and now more level with desk and tucks chin in; therefore not having pain with work, although limiting use of her R hand with keyboard work. PT-OP-E Functional Tests Start: 04/18/21 18:16 Freq: Status: Active Protocol: Document 04/22/21 08:18 LRN (Rec: 04/22/21 09:06 LRN [id number]) Functional Tests Apley's Scratch Test Action 1- Left Below spine of scapula Action 1- Right Below anterior shoulder Action 2- Left T4 Action 2- Right T1 Action 3- Left T7 Action 3- Right T11 PT-OP-H Neuro Start: 04/18/21 18:16 Freq: Status: Active Protocol: Document 04/22/21 08:18 LRN (Rec: 04/22/21 09:06 LRN [id number]) Sensation Evaluation Gross Sensation Gross Sensation WNL PT-OP-J Posture/Palpation/Skin Start: 04/18/21 18:16 Freq: Status: Active Protocol: Document 04/22/21 08:18 LRN (Rec: 04/22/21 09:06 LRN [id number]) Posture Evaluation Position Standing Head/C-Spine Posture Forward Head T-Spine Posture Increased Kyphosis L-Spine Posture Decreased Lordosis Scapula Posture (R) Rotated Down,(R) Depressed Arm Posture (L) Internally Rotated,(R) Internally Rotated Pelvis Posture Posterior Tilted Weight Distribution Balanced Knee Posture (L) Genu Varus,(R) Genu Varus Comments Posture Comments R shoulder & scapula low, head/neck shifted right. Palpation Assessment Location R intrascapular region Palpation Location Rhomboids Palpation Details Atrophy R intrascapular region PT-OP-K Range of Motion Start: 04/18/21 18:16 Freq: Status: Active Protocol: Document 04/22/21 08:18 LRN (Rec: 04/22/21 09:06 LRN [id number]) Cervical Spine Range of Motion Cervical Spine Active Degrees Testing Position Sitting Flexion 25 Extension 17 Rotation Left 35 Rotation Right 37 Lateral Flexion Left 32 Lateral Flexion Right 15 ROM Limitations Pain Shoulder Goniometric Range of Motion Shoulder Left Passive Shoulder ROM WFL Yes Testing Position Supine Flexion 180 External Rotation at 90 degrees 90 Abduction Right Passive Shoulder ROM WFL No Testing Position Supine Flexion 110 External Rotation at 90 degrees 45 Abduction Right Active Shoulder ROM WFL No Testing Position Sitting Flexion 107 Extension 62 Abduction 128 Internal Rotation Behind Back (text) T11 Left Active Shoulder ROM WFL Yes Testing Position Sitting Flexion 155 Extension 63 Abduction 180 Internal Rotation Behind Back (text) T7 PT-OP-L Special Tests Start: 04/18/21 18:16 Freq: Status: Active Protocol: Document 04/28/21 08:17 LRN (Rec: 04/28/21 10:20 LRN [id number]) Special Tests Cervical Spine Special Tests Traction Test Results postive Foraminal Compression Test Results neg Spurling's Test Test Results neg PT-OP-M Strength Start: 04/18/21 18:16 Freq: Status: Active Protocol: Document 04/22/21 08:18 LRN (Rec: 04/22/21 09:06 LRN [id number]) Cervical Spine Strength Cervical Spine Manual Muscle Testing Flexion (C1-2) 5 Normal Extension 5 Normal Lateral Flexion Left (C3) 5 Normal Lateral Flexion Right (C3) 5 Normal Comments Pain relief with ext, Pain with R SB. Shoulder Strength Shoulder Manual Muscle Testing Right Flexion 5 Normal Extension 5 Normal Abduction (C5) 5 Normal Adduction 5 Normal External Rotation 5 Normal Internal Rotation 3 Fair Comments Pain with testing of IR, ext. Left Comments Generally 5/5 with all muscle groups PT-OP-Q Treatments Start: 04/18/21 18:16 Freq: Status: Active Protocol: Document 05/01/21 09:04 LRN (Rec: 05/01/21 09:43 LRN [id number]) Cardio Equipment Recumbent Elliptical (Biodex) Duration (Minutes) 5 Resistance 1 Other Mainly use of LE's, UE gentle ROM Therapeutic Exercises Supine Exercises Chest press Supine Exercise Name Reach to ceiling Side bilateral Reps/Minutes 5x Comments Held due to tightening and discomfort at R shoulder. Scapular depression Supine Exercise Name Active scapular depression Side bilateral Reps/Minutes 10x Shoulder ER/IR Supine Exercise Name AROM Side bilateral Reps/Minutes 15x Comments clicking noted by pt, not felt by PT. Sitting Exercises Shoulder ER/IR Sitting Exercise Name Active ROM ER/IR Side bilateral Reps/Minutes 15x Scapular pinches Sitting Exercise Name Scapular pinches Side bilateral Reps/Minutes 5x 2 Comments Pt needed v cuing to hold counts in secs. Shoulder rolls Sitting Exercise Name Shoulder rolls Side bilateral Reps/Minutes 10x Manual Therapy Treatment Soft Tissue Mobilization R Neck Body Location Neck juancarlos: L paraspinals, R interspinus ms Comments Assessed, no imbalance of ms tone noted. R UT Body Location R UT/Pec Minor Mobilization Type Sustained Pressure Intensity/Depth Moderate Body Position Supine Comments Slight tightness. Self-Care/Home Management Treatment Education Patient Education Home Exercise Program Activities Self-Care/Home Management Activities Issued & reviewed HEP: shoulder rolls, scapular pinches, active shoulder ER/IR . I/S pt in scapular depression. PT-OP-R Modalities Start: 04/18/21 18:16 Freq: Status: Active Protocol: Document 05/01/21 09:04 LRN (Rec: 05/01/21 09:43 LRN [id number]) Electric Stimulation Electric Stimulation Interferential Current (IFC) Body Location R Subscapularis [UT/Deltoid > Pec/Posterior R scapula] Duration (Minutes) 15 Combined With Heat/Cold Hot Pack Comments Pt semi-reclined Hot Pack/Cold Pack Treatment Hot Pack Location Back & R shoulder Treatment Duration (minutes) 15 Comments Pt in semi-reclined position. PT-OP-T Assessment and Plan Start: 04/18/21 18:16 Freq: Status: Active Protocol: Document 05/01/21 09:04 LRN (Rec: 05/01/21 09:43 LRN [id number]) Physical Therapy Assessment Goals Three Impairment Decreased functional strength. Longterm Goal (LTG) Pt will be able to use R arm ( cooking). (05/01/21: Cooking, but using L arm more and using manager care cookware). LTG Duration 06/21/21 (05/01/21: Progressing) Two Impairment Decreased ROM Short Term Goal (STG) Pt will be able to use mouse and write without R shoulder pain. (04/28/21: Less R shoulder pain with use of mouse) (05/01/21: Can take notes with elbow in by sides) STG Duration 05/22/21 (04/28/21: MET GOAL w/modification of activity) Longterm Goal (LTG) Pt will be able to dress without pain. (05/01/21: Pain, keeps dressing simple, can't use blow dryer due to pain). LTG Duration 06/21/21 One Impairment Pt lacks appropriate self care HEP Short Term Goal (STG) Educate pt on proper body mechanics & transfer techniques. STG Duration 04/29/21 (04/24/21: MET GOAL) Weigh Boss Goal (LTG) Pt will be independent with a progressive self care HEP. (04/28/21: I/S pt in chin tuck c. vania ex & proper postioning at computer/ADLs). LTG Duration 07/21/21 (04/28/21: Progressed self care) Progress Towards Goals Progress Comments Pain relief since last treatment with modification of sleeping posture and computer workstation. Assessment Summary Assessment Pt with soft tissue injury of the R subscapularis with possible tear and possible cervical involvement. + response to chin tuck ex and changes in posture sleeping and at computer (non- position & eye level at computer). Good tolerance to ex, with no onset of pain during ex. Pt noted clicking in R shoulder with chest press in supine, but no palpable click noted. No pain with active shldr ER/IR. Physical Therapy Plan Frequency and Duration Frequency of Treatment 2x/Week Plan of Care Start Date 04/22/21 Plan of Care End Date 07/21/21 Next Visit Focus/Plan Next Note Type Treatment Note Next Visit Plan Add to HEP: Scapular depression strengthening, and slowly progress RC strengthening. Start Therapeutic ex: R shoulder passive, active assisted and active Gentle ROM (flex, ER) with HEP if needed. If needed, Manual therapy: Balancing of neck. Modalities: MH/EStim for pain and ms relaxation. Progress for full R shoulder ROM and slow progression of RC strength.
--- NOTE | 2021-05-05 11:17 | PT.OTN ---
Current Diagnoses Pain in right shoulder (05/05/21) Radiculopathy, cervical region (05/05/21) Muscle weakness (generalized) (05/05/21) Physical Therapy Treatment Note PT-OP-A Visit Information Start: 04/18/21 18:16 Freq: Status: Active Protocol: Document 05/05/21 08:11 LRN (Rec: 05/05/21 11:16 LRN [id number]) Out-Patient Physical Therapy Visit Information Visit Information Visit Type Treatment Note Visit Start Time 08:15 Visit Stop Time 09:10 Total Visit Minutes 55 Visit Number 5 Evaluation Information Evaluation Date 04/22/21 Precautions Precautions Osteoporosis,ACL repair of both knees, arthritis of R hip and both knees. PT-OP-B Current Condition Start: 04/18/21 18:16 Freq: Status: Active Protocol: Document 04/22/21 08:18 LRN (Rec: 04/22/21 09:06 LRN [id number]) Current Condition History of Current Condition Onset Date 04/07/21 Current Complaints R neck, upper shldr, intense pn at top of shldr, posterior elbow/brachium History of Current Condition Pain is worse with use of arms . Pt reports she was helping son move to and put backpack on R shoulder and the packpack slid off the shoulder onto the elbow. Carried it on the elbow, then on the ride home she started to feel pain down the back of the R brachium to the elbow. After a couple days had R arm pain and intense pain at the R elbow. Now has stiffness in the shoulder blades and neck. Getting a back spasm under the R scapula. Started to have pain in the L neck and upper shoulder a week ago (a week after it happened started to get sore shoulders and a puffy feeling). She is having a lot of pain at night. Her L side is minor. Prior Treatments and Tests None Pt self treatments: Uses ice pack during the day and at night. Taking Tylenol occasionally. Takes back spasm medications occasionally . 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 Treatment Goals Patient/Caregiver Goals Pt goal is: to be able to use mouse and writing with hand without R shoulder pain. to be able to use R arm ( cooking), dressing. Prior Functional Status Baseline Function- ADL's Independent Baseline Function- Mobility Independent Baseline Function- Other Pain in neck and shoulders after doing a lot of home cooking, pain is 6/10 dull pain level 4-6 takes metilcarpinol for a few days, if it doesn't fix it, then she takes diazapin to go to bed and itll resolve after a couple days (along with Tylenol). 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 Personal Factors Other Personal Factors That May Effect Osteoporosis, back pain. Therapy/Recovery Spouse is radiologist. PT-OP-C Subjective Start: 04/18/21 18:16 Freq: Status: Active Protocol: Document 05/05/21 08:11 LRN (Rec: 05/05/21 11:16 LRN [id number]) OP-PT Subjective Patient Comments Patient Comments L hand starting to hurt ( dorsal), has hurt since last therapy visit. She has been using it more because of the R shoulder pain. R shoulder pain returned yesterday and has been working in office. L hand pain is 6/10, R shoulder pain is 5/10. Ending pain rated as L hand: 1/10, R shoulder 0/10. PT-OP-E Functional Tests Start: 04/18/21 18:16 Freq: Status: Active Protocol: Document 04/22/21 08:18 LRN (Rec: 04/22/21 09:06 LRN [id number]) Functional Tests Apley's Scratch Test Action 1- Left Below spine of scapula Action 1- Right Below anterior shoulder Action 2- Left T4 Action 2- Right T1 Action 3- Left T7 Action 3- Right T11 PT-OP-H Neuro Start: 04/18/21 18:16 Freq: Status: Active Protocol: Document 04/22/21 08:18 LRN (Rec: 04/22/21 09:06 LRN [id number]) Sensation Evaluation Gross Sensation Gross Sensation WNL PT-OP-J Posture/Palpation/Skin Start: 04/18/21 18:16 Freq: Status: Active Protocol: Document 04/22/21 08:18 LRN (Rec: 04/22/21 09:06 LRN [id number]) Posture Evaluation Position Standing Head/C-Spine Posture Forward Head T-Spine Posture Increased Kyphosis L-Spine Posture Decreased Lordosis Scapula Posture (R) Rotated Down,(R) Depressed Arm Posture (L) Internally Rotated,(R) Internally Rotated Pelvis Posture Posterior Tilted Weight Distribution Balanced Knee Posture (L) Genu Varus,(R) Genu Varus Comments Posture Comments R shoulder & scapula low, head/neck shifted right. Palpation Assessment Location R intrascapular region Palpation Location Rhomboids Palpation Details Atrophy R intrascapular region PT-OP-K Range of Motion Start: 04/18/21 18:16 Freq: Status: Active Protocol: Document 04/22/21 08:18 LRN (Rec: 04/22/21 09:06 LRN [id number]) Cervical Spine Range of Motion Cervical Spine Active Degrees Testing Position Sitting Flexion 25 Extension 17 Rotation Left 35 Rotation Right 37 Lateral Flexion Left 32 Lateral Flexion Right 15 ROM Limitations Pain Shoulder Goniometric Range of Motion Shoulder Left Passive Shoulder ROM WFL Yes Testing Position Supine Flexion 180 External Rotation at 90 degrees 90 Abduction Right Passive Shoulder ROM WFL No Testing Position Supine Flexion 110 External Rotation at 90 degrees 45 Abduction Right Active Shoulder ROM WFL No Testing Position Sitting Flexion 107 Extension 62 Abduction 128 Internal Rotation Behind Back (text) T11 Left Active Shoulder ROM WFL Yes Testing Position Sitting Flexion 155 Extension 63 Abduction 180 Internal Rotation Behind Back (text) T7 PT-OP-L Special Tests Start: 04/18/21 18:16 Freq: Status: Active Protocol: Document 04/28/21 08:17 LRN (Rec: 04/28/21 10:20 LRN [id number]) Special Tests Cervical Spine Special Tests Traction Test Results postive Foraminal Compression Test Results neg Spurling's Test Test Results neg PT-OP-M Strength Start: 04/18/21 18:16 Freq: Status: Active Protocol: Document 04/22/21 08:18 LRN (Rec: 04/22/21 09:06 LRN [id number]) Cervical Spine Strength Cervical Spine Manual Muscle Testing Flexion (C1-2) 5 Normal Extension 5 Normal Lateral Flexion Left (C3) 5 Normal Lateral Flexion Right (C3) 5 Normal Comments Pain relief with ext, Pain with R SB. Shoulder Strength Shoulder Manual Muscle Testing Right Flexion 5 Normal Extension 5 Normal Abduction (C5) 5 Normal Adduction 5 Normal External Rotation 5 Normal Internal Rotation 3 Fair Comments Pain with testing of IR, ext. Left Comments Generally 5/5 with all muscle groups PT-OP-Q Treatments Start: 04/18/21 18:16 Freq: Status: Active Protocol: Document 05/05/21 08:11 LRN (Rec: 05/05/21 11:16 LRN [id number]) Manual Therapy Treatment Soft Tissue Mobilization C7/T1 Body Location C7/T1 Spinous Process Mobilization Type Sustained Pressure Intensity/Depth Superficial Body Position Supine on pillows Comments Balancing of Cervicothoracic junction on left & right side. Neck Body Location L paraspinals & interspinus ms Mobilization Type Sustained Pressure Intensity/Depth Moderate Body Position Supine Comments Pt laying on pillows Manual Traction Cervical Details 30 deg's & axial traction with & without a belt Body Position Supine Reps/Duration Variable duration, depending on symptom relief. Comments Traction given 2x during therapy session. Self-Care/Home Management Treatment Education Patient Education Posture Other Education Discussed/educated pt in methods to improve sitting posture (ball chair, wedge cushion, constant repositioning). PT-OP-R Modalities Start: 04/18/21 18:16 Freq: Status: Active Protocol: Document 05/05/21 08:11 LRN (Rec: 05/05/21 11:16 LRN [id number]) Electric Stimulation Electric Stimulation Interferential Current (IFC) Body Location R Subscapularis [UT/Deltoid > Pec/Posterior R scapula] Duration (Minutes) 10 Intensity 10>11 Combined With Heat/Cold Hot Pack Comments Pt semi-reclined Hot Pack/Cold Pack Treatment Hot Pack Location Back & R shoulder Patient Position Supine Treatment Duration (minutes) 10 Comments Pt in semi-reclined position. PT-OP-T Assessment and Plan Start: 04/18/21 18:16 Freq: Status: Active Protocol: Document 05/05/21 08:11 LRN (Rec: 05/05/21 11:16 LRN [id number]) Physical Therapy Assessment Goals Three Impairment Decreased functional strength. Nursing Home Goal (LTG) Pt will be able to use R arm ( cooking). (05/01/21: Cooking, but using L arm more and using radio recorder cookware). LTG Duration 06/21/21 (05/01/21: Progressing) Two Impairment Decreased ROM Short Term Goal (STG) Pt will be able to use mouse and write without R shoulder pain. (04/28/21: Less R shoulder pain with use of mouse) (05/01/21: Can take notes with elbow in by sides) STG Duration 05/22/21 (04/28/21: MET GOAL w/modification of activity) Nursing Home Goal (LTG) Pt will be able to dress without pain. (05/01/21: Pain, keeps dressing simple, can't use blow dryer due to pain). LTG Duration 06/21/21 One Impairment Pt lacks appropriate self care HEP Short Term Goal (STG) Educate pt on proper body mechanics & transfer techniques. STG Duration 04/29/21 (04/24/21: MET GOAL) Nursing Home Goal (LTG) Pt will be independent with a progressive self care HEP. (04/28/21: I/S pt in chin tuck c. vania ex & proper postioning at computer/ADLs). LTG Duration 07/21/21 (04/28/21: Progressed self care) Assessment Summary Assessment Pt appears to have had a positive response to therapy with EStim [C7/T1 with pads at neck and just medial to medial scapular border]. + response to gentle manual cervical traction. Per discussion with pt it appears her onset of L hand and scapular pain may be mostly related to posture of head/ neck. Physical Therapy Plan Frequency and Duration Frequency of Treatment 2x/Week Plan of Care Start Date 04/22/21 Plan of Care End Date 07/21/21 Next Visit Focus/Plan Next Note Type Treatment Note Next Visit Plan Progress strengthening R RC if pain decreased. Assess L hand pain in response to treatment. Add to HEP: Scapular depression strengthening, and slowly progress RC strengthening. Start Therapeutic ex: R shoulder passive, active assisted and active Gentle ROM (flex, ER) with HEP if needed . If needed, Manual therapy: Balancing of neck. Modalities: MH/EStim for pain and ms relaxation. Progress for full R shoulder ROM and slow progression of RC strength.
--- NOTE | 2021-05-12 10:06 | PT.OTN ---
Current Diagnoses Pain in right shoulder (05/12/21) Radiculopathy, cervical region (05/12/21) Muscle weakness (generalized) (05/12/21) Physical Therapy Treatment Note PT-OP-A Visit Information Start: 04/18/21 18:16 Freq: Status: Active Protocol: Document 05/12/21 08:17 LRN (Rec: 05/12/21 09:03 LRN [id number]) Out-Patient Physical Therapy Visit Information Visit Information Visit Type Treatment Note Visit Start Time 08:17 Visit Stop Time 09:00 Total Visit Minutes 43 Visit Number 6 Evaluation Information Evaluation Date 04/22/21 Precautions Precautions Osteoporosis,ACL repair of both knees, arthritis of R hip and both knees. PT-OP-B Current Condition Start: 04/18/21 18:16 Freq: Status: Active Protocol: Document 04/22/21 08:18 LRN (Rec: 04/22/21 09:06 LRN [id number]) Current Condition History of Current Condition Onset Date 04/07/21 Current Complaints R neck, upper shldr, intense pn at top of shldr, posterior elbow/brachium History of Current Condition Pain is worse with use of arms . Pt reports she was helping son move to and put backpack on R shoulder and the packpack slid off the shoulder onto the elbow. Carried it on the elbow, then on the ride home she started to feel pain down the back of the R brachium to the elbow. After a couple days had R arm pain and intense pain at the R elbow. Now has stiffness in the shoulder blades and neck. Getting a back spasm under the R scapula. Started to have pain in the L neck and upper shoulder a week ago (a week after it happened started to get sore shoulders and a puffy feeling). She is having a lot of pain at night. Her L side is minor. Prior Treatments and Tests None Pt self treatments: Uses ice pack during the day and at night. Taking Tylenol occasionally. Takes back spasm medications occasionally . 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 Treatment Goals Patient/Caregiver Goals Pt goal is: to be able to use mouse and writing with hand without R shoulder pain. to be able to use R arm ( cooking), dressing. Prior Functional Status Baseline Function- ADL's Independent Baseline Function- Mobility Independent Baseline Function- Other Pain in neck and shoulders after doing a lot of home cooking, pain is 6/10 dull pain level 4-6 takes metilcarpinol for a few days, if it doesn't fix it, then she takes diazapin to go to bed and itll resolve after a couple days (along with Tylenol). 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 Personal Factors Other Personal Factors That May Effect Osteoporosis, back pain. Therapy/Recovery Spouse is radiologist. PT-OP-C Subjective Start: 04/18/21 18:16 Freq: Status: Active Protocol: Document 05/12/21 08:17 LRN (Rec: 05/12/21 09:03 LRN [id number]) OP-PT Subjective Patient Comments Patient Comments Last treatment helped with the pain in the L hand, rarely has pain in the finters and medial wrist int the arm. Able to pick things up without the twinge, only occasionally . She can now do more lifting and dishes. R neck/shoulder is less tense and feels only a dull ache at the top of the shoulder (pointing to R lateral to ACJ & subacromial bursa/ Supraspinatus attachment). Pain currently is 0/10. PT-OP-E Functional Tests Start: 04/18/21 18:16 Freq: Status: Active Protocol: Document 04/22/21 08:18 LRN (Rec: 04/22/21 09:06 LRN [id number]) Functional Tests Apley's Scratch Test Action 1- Left Below spine of scapula Action 1- Right Below anterior shoulder Action 2- Left T4 Action 2- Right T1 Action 3- Left T7 Action 3- Right T11 PT-OP-H Neuro Start: 04/18/21 18:16 Freq: Status: Active Protocol: Document 04/22/21 08:18 LRN (Rec: 04/22/21 09:06 LRN [id number]) Sensation Evaluation Gross Sensation Gross Sensation WNL PT-OP-J Posture/Palpation/Skin Start: 04/18/21 18:16 Freq: Status: Active Protocol: Document 04/22/21 08:18 LRN (Rec: 04/22/21 09:06 LRN [id number]) Posture Evaluation Position Standing Head/C-Spine Posture Forward Head T-Spine Posture Increased Kyphosis L-Spine Posture Decreased Lordosis Scapula Posture (R) Rotated Down,(R) Depressed Arm Posture (L) Internally Rotated,(R) Internally Rotated Pelvis Posture Posterior Tilted Weight Distribution Balanced Knee Posture (L) Genu Varus,(R) Genu Varus Comments Posture Comments R shoulder & scapula low, head/neck shifted right. Palpation Assessment Location R intrascapular region Palpation Location Rhomboids Palpation Details Atrophy R intrascapular region PT-OP-K Range of Motion Start: 04/18/21 18:16 Freq: Status: Active Protocol: Document 04/22/21 08:18 LRN (Rec: 04/22/21 09:06 LRN [id number]) Cervical Spine Range of Motion Cervical Spine Active Degrees Testing Position Sitting Flexion 25 Extension 17 Rotation Left 35 Rotation Right 37 Lateral Flexion Left 32 Lateral Flexion Right 15 ROM Limitations Pain Shoulder Goniometric Range of Motion Shoulder Left Passive Shoulder ROM WFL Yes Testing Position Supine Flexion 180 External Rotation at 90 degrees 90 Abduction Right Passive Shoulder ROM WFL No Testing Position Supine Flexion 110 External Rotation at 90 degrees 45 Abduction Right Active Shoulder ROM WFL No Testing Position Sitting Flexion 107 Extension 62 Abduction 128 Internal Rotation Behind Back (text) T11 Left Active Shoulder ROM WFL Yes Testing Position Sitting Flexion 155 Extension 63 Abduction 180 Internal Rotation Behind Back (text) T7 PT-OP-L Special Tests Start: 04/18/21 18:16 Freq: Status: Active Protocol: Document 04/28/21 08:17 LRN (Rec: 04/28/21 10:20 LRN [id number]) Special Tests Cervical Spine Special Tests Traction Test Results postive Foraminal Compression Test Results neg Spurling's Test Test Results neg PT-OP-M Strength Start: 04/18/21 18:16 Freq: Status: Active Protocol: Document 04/22/21 08:18 LRN (Rec: 04/22/21 09:06 LRN [id number]) Cervical Spine Strength Cervical Spine Manual Muscle Testing Flexion (C1-2) 5 Normal Extension 5 Normal Lateral Flexion Left (C3) 5 Normal Lateral Flexion Right (C3) 5 Normal Comments Pain relief with ext, Pain with R SB. Shoulder Strength Shoulder Manual Muscle Testing Right Flexion 5 Normal Extension 5 Normal Abduction (C5) 5 Normal Adduction 5 Normal External Rotation 5 Normal Internal Rotation 3 Fair Comments Pain with testing of IR, ext. Left Comments Generally 5/5 with all muscle groups PT-OP-Q Treatments Start: 04/18/21 18:16 Freq: Status: Active Protocol: Document 05/12/21 08:17 LRN (Rec: 05/12/21 09:03 LRN [id number]) Therapeutic Exercises Sidelying Exercises Shoulder ER Sidelying Exercise Name AROM Side right Reps/Minutes 5' Comments Pt moves slowly and cautiously . Sitting Exercises Nan-R shldr Sitting Exercise Name AAROM flex/AB Side right Equipment Used Overhead nan Reps/Minutes 30 Comments Cuing needed for painfree maximal ROM Standing Exercises Row Side bilateral Reps/Minutes 15x Comments Extra time for getting proper scap retraction Shoulder Ext Standing Exercise Name Straight arm extension Side bilateral Reps/Minutes 4' Comments Extra time for getting proper scap depression retraction/ depression Scapular depression Standing Exercise Name Lat Pull down motion Side bilateral Reps/Minutes 30 Comments Extra time for training of scapula for retraction/ depression PT-OP-R Modalities Start: 04/18/21 18:16 Freq: Status: Active Protocol: Document 05/12/21 08:17 LRN (Rec: 05/12/21 09:03 LRN [id number]) Electric Stimulation Electric Stimulation Interferential Current (IFC) Body Location R Subscapularis [UT/Deltoid > Pec/Posterior R scapula] Duration (Minutes) 10 Intensity 11 Combined With Heat/Cold Hot Pack Comments Pt semi-reclined Hot Pack/Cold Pack Treatment Hot Pack Location Back & R shoulder Patient Position Supine Treatment Duration (minutes) 10 PT-OP-T Assessment and Plan Start: 04/18/21 18:16 Freq: Status: Active Protocol: Document 05/12/21 08:17 LRN (Rec: 05/12/21 09:03 LRN [id number]) Physical Therapy Assessment Goals Three Impairment Decreased functional strength. Usp Goal (LTG) Pt will be able to use R arm ( cooking). (05/01/21: Cooking, but using L arm more and using children's attendant cookware). LTG Duration 06/21/21 (05/01/21: Progressing) Two Impairment Decreased ROM Short Term Goal (STG) Pt will be able to use mouse and write without R shoulder pain. (04/28/21: Less R shoulder pain with use of mouse) (05/01/21: Can take notes with elbow in by sides) STG Duration 05/22/21 (04/28/21: MET GOAL w/modification of activity) Usp Goal (LTG) Pt will be able to dress without pain. (05/01/21: Pain, keeps dressing simple, can't use blow dryer due to pain). LTG Duration 06/21/21 One Impairment Pt lacks appropriate self care HEP Short Term Goal (STG) Educate pt on proper body mechanics & transfer techniques. STG Duration 04/29/21 (04/24/21: MET GOAL) Usp Goal (LTG) Pt will be independent with a progressive self care HEP. (04/28/21: I/S pt in chin tuck c. vania ex & proper postioning at computer/ADLs). LTG Duration 07/21/21 (04/28/21: Progressed self care) Progress Towards Goals Progress Comments R shoulder pain focusing at subacromial region of Supraspinatus attachment & lateral to ACJ. L hand pain decreased to intermittent. Assessment Summary Assessment Improved with lessening of L hand pain to intermittent as pt has modified her activities . No pain with AAROM of shoulder flex/AB w/nan. Pt has minimal movement into scapular depression/retraction ; therefore further strengthening needed, as well as T/S extension ex. No pain with ex, only increase tension on L neck & R subacromial region. Physical Therapy Plan Frequency and Duration Frequency of Treatment 2x/Week Plan of Care Start Date 04/22/21 Plan of Care End Date 07/21/21 Next Visit Focus/Plan Next Note Type Treatment Note Next Visit Plan Progress strengthening R RC as tolerated w/modalities to manage pain. Add to HEP: active assisted and active Gentle ROM (flex, ER) if needed, Scapular depression, ER/IR strengthening, and slowly progress RC strengthening. If needed, Manual therapy: Balancing of neck. Modalities: MH/EStim for pain and ms relaxation. Progress for full R shoulder ROM and slow progression of RC strength.
--- NOTE | 2021-05-16 16:26 | PT.OTN ---
Current Diagnoses Pain in right shoulder (05/16/21) Radiculopathy, cervical region (05/16/21) Muscle weakness (generalized) (05/16/21) Physical Therapy Treatment Note PT-OP-A Visit Information Start: 04/18/21 18:16 Freq: Status: Active Protocol: Document 05/16/21 08:52 LRN (Rec: 05/16/21 09:02 LRN [id number]) Out-Patient Physical Therapy Visit Information Visit Information Visit Type Treatment Note Visit Start Time 08:15 Visit Stop Time 09:55 Total Visit Minutes 40 Visit Number 7 Evaluation Information Evaluation Date 04/22/21 Precautions Precautions Osteoporosis,ACL repair of both knees, arthritis of R hip and both knees. PT-OP-B Current Condition Start: 04/18/21 18:16 Freq: Status: Active Protocol: Document 04/22/21 08:18 LRN (Rec: 04/22/21 09:06 LRN [id number]) Current Condition History of Current Condition Onset Date 04/07/21 Current Complaints R neck, upper shldr, intense pn at top of shldr, posterior elbow/brachium History of Current Condition Pain is worse with use of arms . Pt reports she was helping son move to and put backpack on R shoulder and the packpack slid off the shoulder onto the elbow. Carried it on the elbow, then on the ride home she started to feel pain down the back of the R brachium to the elbow. After a couple days had R arm pain and intense pain at the R elbow. Now has stiffness in the shoulder blades and neck. Getting a back spasm under the R scapula. Started to have pain in the L neck and upper shoulder a week ago (a week after it happened started to get sore shoulders and a puffy feeling). She is having a lot of pain at night. Her L side is minor. Prior Treatments and Tests None Pt self treatments: Uses ice pack during the day and at night. Taking Tylenol occasionally. Takes back spasm medications occasionally . 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 Treatment Goals Patient/Caregiver Goals Pt goal is: to be able to use mouse and writing with hand without R shoulder pain. to be able to use R arm ( cooking), dressing. Prior Functional Status Baseline Function- ADL's Independent Baseline Function- Mobility Independent Baseline Function- Other Pain in neck and shoulders after doing a lot of home cooking, pain is 6/10 dull pain level 4-6 takes metilcarpinol for a few days, if it doesn't fix it, then she takes diazapin to go to bed and itll resolve after a couple days (along with Tylenol). 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 Personal Factors Other Personal Factors That May Effect Osteoporosis, back pain. Therapy/Recovery Spouse is radiologist. PT-OP-C Subjective Start: 04/18/21 18:16 Freq: Status: Active Protocol: Document 05/16/21 08:52 LRN (Rec: 05/16/21 09:02 LRN [id number]) OP-PT Subjective Patient Comments Patient Comments Reports dull pain in R shoulder 1/10; twinges of pain in the L hand (btn fingers 2, 3) and R thumb. Doing well. Patient Reported Progress Improving PT-OP-E Functional Tests Start: 04/18/21 18:16 Freq: Status: Active Protocol: Document 04/22/21 08:18 LRN (Rec: 04/22/21 09:06 LRN [id number]) Functional Tests Apley's Scratch Test Action 1- Left Below spine of scapula Action 1- Right Below anterior shoulder Action 2- Left T4 Action 2- Right T1 Action 3- Left T7 Action 3- Right T11 PT-OP-H Neuro Start: 04/18/21 18:16 Freq: Status: Active Protocol: Document 04/22/21 08:18 LRN (Rec: 04/22/21 09:06 LRN [id number]) Sensation Evaluation Gross Sensation Gross Sensation WNL PT-OP-J Posture/Palpation/Skin Start: 04/18/21 18:16 Freq: Status: Active Protocol: Document 04/22/21 08:18 LRN (Rec: 04/22/21 09:06 LRN [id number]) Posture Evaluation Position Standing Head/C-Spine Posture Forward Head T-Spine Posture Increased Kyphosis L-Spine Posture Decreased Lordosis Scapula Posture (R) Rotated Down,(R) Depressed Arm Posture (L) Internally Rotated,(R) Internally Rotated Pelvis Posture Posterior Tilted Weight Distribution Balanced Knee Posture (L) Genu Varus,(R) Genu Varus Comments Posture Comments R shoulder & scapula low, head/neck shifted right. Palpation Assessment Location R intrascapular region Palpation Location Rhomboids Palpation Details Atrophy R intrascapular region PT-OP-K Range of Motion Start: 04/18/21 18:16 Freq: Status: Active Protocol: Document 04/22/21 08:18 LRN (Rec: 04/22/21 09:06 LRN [id number]) Cervical Spine Range of Motion Cervical Spine Active Degrees Testing Position Sitting Flexion 25 Extension 17 Rotation Left 35 Rotation Right 37 Lateral Flexion Left 32 Lateral Flexion Right 15 ROM Limitations Pain Shoulder Goniometric Range of Motion Shoulder Left Passive Shoulder ROM WFL Yes Testing Position Supine Flexion 180 External Rotation at 90 degrees 90 Abduction Right Passive Shoulder ROM WFL No Testing Position Supine Flexion 110 External Rotation at 90 degrees 45 Abduction Right Active Shoulder ROM WFL No Testing Position Sitting Flexion 107 Extension 62 Abduction 128 Internal Rotation Behind Back (text) T11 Left Active Shoulder ROM WFL Yes Testing Position Sitting Flexion 155 Extension 63 Abduction 180 Internal Rotation Behind Back (text) T7 PT-OP-L Special Tests Start: 04/18/21 18:16 Freq: Status: Active Protocol: Document 04/28/21 08:17 LRN (Rec: 04/28/21 10:20 LRN [id number]) Special Tests Cervical Spine Special Tests Traction Test Results postive Foraminal Compression Test Results neg Spurling's Test Test Results neg PT-OP-M Strength Start: 04/18/21 18:16 Freq: Status: Active Protocol: Document 04/22/21 08:18 LRN (Rec: 04/22/21 09:06 LRN [id number]) Cervical Spine Strength Cervical Spine Manual Muscle Testing Flexion (C1-2) 5 Normal Extension 5 Normal Lateral Flexion Left (C3) 5 Normal Lateral Flexion Right (C3) 5 Normal Comments Pain relief with ext, Pain with R SB. Shoulder Strength Shoulder Manual Muscle Testing Right Flexion 5 Normal Extension 5 Normal Abduction (C5) 5 Normal Adduction 5 Normal External Rotation 5 Normal Internal Rotation 3 Fair Comments Pain with testing of IR, ext. Left Comments Generally 5/5 with all muscle groups PT-OP-Q Treatments Start: 04/18/21 18:16 Freq: Status: Active Protocol: Document 05/16/21 08:52 LRN (Rec: 05/16/21 09:02 LRN [id number]) Therapeutic Exercises Supine Exercises Neck Elongation Supine Exercise Name Augie hold of neck elongation Reps/Minutes 4' 5 Holds Comments Extra time for training of proper positioning while holding contraction Scapular depression Supine Exercise Name Juancarlos arm flex - scapular depression Reps/Minutes 4' Shoulder ER/IR Supine Exercise Name Shoulder ER/IR Reps/Minutes 4' Prone Exercises JT Prone Exercise Name JT for upper thoracic ext C7- T3, neck elongated Reps/Minutes 10 = 1.5 breaths H, 5' Sitting Exercises Bilateral shoulder flex Sitting Exercise Name Neck Elong w/juancarlos shldr flex holds through 2 breaths Side bilateral Reps/Minutes 10 holds = 2 breaths, 5' Comments phys & v cuing to engage lower trap and mobilize T/S Standing Exercises Shoulder ER Standing Exercise Name Shoulder ER Side bilateral Equipment Used Lev 2 TBand & towel roll Comments MWM for limiting L rot of C6, C7 Row Standing Exercise Name Scap pinch Side bilateral Reps/Minutes 15x Comments Extra time for getting proper scap retraction Shoulder Ext Standing Exercise Name Straight arm extension for scapular depression Side bilateral Reps/Minutes 4' Comments Extra time for getting proper scap depression retraction/ depression PT-OP-R Modalities Start: 04/18/21 18:16 Freq: Status: Active Protocol: Document 05/12/21 08:17 LRN (Rec: 05/12/21 09:03 LRN [id number]) Electric Stimulation Electric Stimulation Interferential Current (IFC) Body Location R Subscapularis [UT/Deltoid > Pec/Posterior R scapula] Duration (Minutes) 10 Intensity 11 Combined With Heat/Cold Hot Pack Comments Pt semi-reclined Hot Pack/Cold Pack Treatment Hot Pack Location Back & R shoulder Patient Position Supine Treatment Duration (minutes) 10 PT-OP-T Assessment and Plan Start: 04/18/21 18:16 Freq: Status: Active Protocol: Document 05/16/21 08:52 LRN (Rec: 05/16/21 09:02 LRN [id number]) Physical Therapy Assessment Goals Three Impairment Decreased functional strength. 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 (05/01/21: Cooking, but using L arm more and using rag baler cookware). LTG Duration 06/21/21 (05/01/21: Progressing) Two Impairment Decreased ROM Short Term Goal (STG) Pt will be able to use mouse and write without R shoulder pain. (04/28/21: Less R shoulder pain with use of mouse) (05/01/21: Can take notes with elbow in by sides) STG Duration 05/22/21 (04/28/21: MET GOAL w/modification of activity) Granulizing Machine Operator Goal (LTG) Pt will be able to dress without pain. (05/01/21: Pain, keeps dressing simple, can't use blow dryer due to pain). LTG Duration 06/21/21 One Impairment Pt lacks appropriate self care HEP Short Term Goal (STG) Educate pt on proper body mechanics & transfer techniques. STG Duration 04/29/21 (04/24/21: MET GOAL) Granulizing Machine Operator Goal (LTG) Pt will be independent with a progressive self care HEP. (04/28/21: I/S pt in chin tuck c. augie ex & proper postioning at computer/ADLs). LTG Duration 07/21/21 (04/28/21: Progressed self care) Progress Towards Goals Progress Comments Pt progressing in activity tolerance. Assessment Summary Assessment Pt C5-C6 becomes L rot as she is using her R arm; therefore MWM for stab against the L rot eliminated her R hand pain with shldr ER strengthening ex . Pt progressing well, ended therapy without R shldr or juancarlos hand pain. Physical Therapy Plan Frequency and Duration Frequency of Treatment 2x/Week Plan of Care Start Date 04/22/21 Plan of Care End Date 07/21/21 Next Visit Focus/Plan Next Note Type Treatment Note Next Visit Plan Assess postural awareness and response to last treatment. Progress C/S stab and RC strengthening. Add to HEP: active assisted and active shoulder ROM (ER) Scapular depression, ER/IR strengthening. If needed, Manual therapy: Balancing of neck. Modalities: MH/EStim for pain and ms relaxation. Progress for full R shoulder ROM and RC strength.
--- NOTE | 2021-05-19 10:07 | PT.OTN ---
Current Diagnoses Pain in right shoulder (05/19/21) Radiculopathy, cervical region (05/19/21) Muscle weakness (generalized) (05/19/21) Physical Therapy Treatment Note PT-OP-A Visit Information Start: 04/18/21 18:16 Freq: Status: Active Protocol: Document 05/19/21 08:17 LRN (Rec: 05/19/21 09:02 LRN [id number]) Out-Patient Physical Therapy Visit Information Visit Information Visit Type Treatment Note Visit Start Time 08:16 Visit Stop Time 08:58 Total Visit Minutes 42 Visit Number 8 Evaluation Information Evaluation Date 04/22/21 Precautions Precautions Osteoporosis,ACL repair of both knees, arthritis of R hip and both knees. PT-OP-B Current Condition Start: 04/18/21 18:16 Freq: Status: Active Protocol: Document 04/22/21 08:18 LRN (Rec: 04/22/21 09:06 LRN [id number]) Current Condition History of Current Condition Onset Date 04/07/21 Current Complaints R neck, upper shldr, intense pn at top of shldr, posterior elbow/brachium History of Current Condition Pain is worse with use of arms . Pt reports she was helping son move to and put backpack on R shoulder and the packpack slid off the shoulder onto the elbow. Carried it on the elbow, then on the ride home she started to feel pain down the back of the R brachium to the elbow. After a couple days had R arm pain and intense pain at the R elbow. Now has stiffness in the shoulder blades and neck. Getting a back spasm under the R scapula. Started to have pain in the L neck and upper shoulder a week ago (a week after it happened started to get sore shoulders and a puffy feeling). She is having a lot of pain at night. Her L side is minor. Prior Treatments and Tests None Pt self treatments: Uses ice pack during the day and at night. Taking Tylenol occasionally. Takes back spasm medications occasionally . 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 Treatment Goals Patient/Caregiver Goals Pt goal is: to be able to use mouse and writing with hand without R shoulder pain. to be able to use R arm ( cooking), dressing. Prior Functional Status Baseline Function- ADL's Independent Baseline Function- Mobility Independent Baseline Function- Other Pain in neck and shoulders after doing a lot of home cooking, pain is 6/10 dull pain level 4-6 takes metilcarpinol for a few days, if it doesn't fix it, then she takes diazapin to go to bed and itll resolve after a couple days (along with Tylenol). 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 Personal Factors Other Personal Factors That May Effect Osteoporosis, back pain. Therapy/Recovery Spouse is radiologist. PT-OP-C Subjective Start: 04/18/21 18:16 Freq: Status: Active Protocol: Document 05/19/21 08:17 LRN (Rec: 05/19/21 09:02 LRN [id number]) OP-PT Subjective Patient Comments Patient Comments States she is doing great. Have been working on computer and no R shoulder pain. Twinges of pain in the L finger at 1st phalenx. States she is dressing without pain and cooking without R shoulder pain. PT-OP-E Functional Tests Start: 04/18/21 18:16 Freq: Status: Active Protocol: Document 04/22/21 08:18 LRN (Rec: 04/22/21 09:06 LRN [id number]) Functional Tests Apley's Scratch Test Action 1- Left Below spine of scapula Action 1- Right Below anterior shoulder Action 2- Left T4 Action 2- Right T1 Action 3- Left T7 Action 3- Right T11 PT-OP-H Neuro Start: 04/18/21 18:16 Freq: Status: Active Protocol: Document 04/22/21 08:18 LRN (Rec: 04/22/21 09:06 LRN [id number]) Sensation Evaluation Gross Sensation Gross Sensation WNL PT-OP-J Posture/Palpation/Skin Start: 04/18/21 18:16 Freq: Status: Active Protocol: Document 04/22/21 08:18 LRN (Rec: 04/22/21 09:06 LRN [id number]) Posture Evaluation Position Standing Head/C-Spine Posture Forward Head T-Spine Posture Increased Kyphosis L-Spine Posture Decreased Lordosis Scapula Posture (R) Rotated Down,(R) Depressed Arm Posture (L) Internally Rotated,(R) Internally Rotated Pelvis Posture Posterior Tilted Weight Distribution Balanced Knee Posture (L) Genu Varus,(R) Genu Varus Comments Posture Comments R shoulder & scapula low, head/neck shifted right. Palpation Assessment Location R intrascapular region Palpation Location Rhomboids Palpation Details Atrophy R intrascapular region PT-OP-K Range of Motion Start: 04/18/21 18:16 Freq: Status: Active Protocol: Document 05/19/21 08:17 LRN (Rec: 05/19/21 09:02 LRN [id number]) Shoulder Goniometric Range of Motion Shoulder Right Active Testing Position Sitting Flexion 165 Extension 70 Abduction 180 External Rotation at 0 degrees Abduction 85 Internal Rotation Behind Back (text) T7 Left Active Shoulder ROM WFL Yes Testing Position Sitting Flexion 160 Extension 70 Abduction 180 External Rotation at 0 degrees Abduction 75 Internal Rotation Behind Back (text) T6 PT-OP-L Special Tests Start: 04/18/21 18:16 Freq: Status: Active Protocol: Document 04/28/21 08:17 LRN (Rec: 04/28/21 10:20 LRN [id number]) Special Tests Cervical Spine Special Tests Traction Test Results postive Foraminal Compression Test Results neg Spurling's Test Test Results neg PT-OP-M Strength Start: 04/18/21 18:16 Freq: Status: Active Protocol: Document 04/22/21 08:18 LRN (Rec: 04/22/21 09:06 LRN [id number]) Cervical Spine Strength Cervical Spine Manual Muscle Testing Flexion (C1-2) 5 Normal Extension 5 Normal Lateral Flexion Left (C3) 5 Normal Lateral Flexion Right (C3) 5 Normal Comments Pain relief with ext, Pain with R SB. Shoulder Strength Shoulder Manual Muscle Testing Right Flexion 5 Normal Extension 5 Normal Abduction (C5) 5 Normal Adduction 5 Normal External Rotation 5 Normal Internal Rotation 3 Fair Comments Pain with testing of IR, ext. Left Comments Generally 5/5 with all muscle groups PT-OP-Q Treatments Start: 04/18/21 18:16 Freq: Status: Active Protocol: Document 05/19/21 08:17 LRN (Rec: 05/19/21 09:02 LRN [id number]) Therapeutic Exercises Supine Exercises Juancarlos shoulder flex Supine Exercise Name Juancarlos shoulder flex - End range hold Side bilateral Reps/Minutes 12x Comments Extra time with cuing for hold at end range. Neck Elongation Supine Exercise Name Augie hold of neck elongation Reps/Minutes 4' 5 Holds Comments Extra time for training of proper positioning while holding contraction Prone Exercises JT Prone Exercise Name JT for upper thoracic ext C7- T3, neck elongated Reps/Minutes 10 = 2 breaths H, 6' Sitting Exercises Juancarlos shoulder EXT & AB Sitting Exercise Name Juancarlos shoulder ext & AB Side bilateral Reps/Minutes 2x Comments AROM taken Bilateral shoulder flex Sitting Exercise Name Neck Elong w/juancarlos shldr flex holds through 2 breaths Side bilateral Reps/Minutes 10 x 2 holds = 2 breaths Comments AROM taken Shoulder ER/IR Sitting Exercise Name AROM Side bilateral Reps/Minutes 2x Comments AROM taken Standing Exercises Shoulder IR Standing Exercise Name Shoulder IR strengthening Side bilateral Reps/Minutes 10x Shoulder ER Standing Exercise Name Shoulder ER Side bilateral Equipment Used Lev 2 TBand & towel roll Comments Phys & v cuing needed Row Standing Exercise Name Scap pinch Side bilateral Reps/Minutes 10x 2 Comments Extra time for getting proper scap retraction Shoulder Ext Standing Exercise Name Straight arm extension for scapular depression Side bilateral Reps/Minutes 4' Comments Phys & v cuing for scapular depression/retraction Scapular depression Standing Exercise Name Lat Pull down motion Side bilateral Reps/Minutes 30 Comments Extra time for training of scapula for retraction/ depression Manual Therapy Treatment Soft Tissue Mobilization C7/T1 Body Location C7/T1 Spinous Process Mobilization Type Sustained Pressure Intensity/Depth Moderate Comments Balancing of Cervicothoracic junction on left & right side. PT-OP-R Modalities Start: 04/18/21 18:16 Freq: Status: Active Protocol: Document 05/12/21 08:17 LRN (Rec: 05/12/21 09:03 LRN [id number]) Electric Stimulation Electric Stimulation Interferential Current (IFC) Body Location R Subscapularis [UT/Deltoid > Pec/Posterior R scapula] Duration (Minutes) 10 Intensity 11 Combined With Heat/Cold Hot Pack Comments Pt semi-reclined Hot Pack/Cold Pack Treatment Hot Pack Location Back & R shoulder Patient Position Supine Treatment Duration (minutes) 10 PT-OP-T Assessment and Plan Start: 04/18/21 18:16 Freq: Status: Active Protocol: Document 05/19/21 08:17 LRN (Rec: 05/19/21 09:02 LRN [id number]) Physical Therapy Assessment Goals Three Impairment Decreased functional strength. Charging Machine Operator Goal (LTG) Pt will be able to use R arm ( cooking). (05/01/21: Cooking, but using L arm more and using roll clamp operator cookware). LTG Duration 06/21/21 (05/19/21: MET GOAL) Two Impairment Decreased ROM Short Term Goal (STG) Pt will be able to use mouse and write without R shoulder pain. (04/28/21: Less R shoulder pain with use of mouse) (05/01/21: Can take notes with elbow in by sides) STG Duration 05/22/21 (04/28/21: MET GOAL w/modification of activity) Charging Machine Operator Goal (LTG) Pt will be able to dress without pain. (05/01/21: Pain, keeps dressing simple, can't use blow dryer due to pain). LTG Duration 06/21/21 (05/19/21: MET GOAL) One Impairment Pt lacks appropriate self care HEP Short Term Goal (STG) Educate pt on proper body mechanics & transfer techniques. STG Duration 04/29/21 (04/24/21: MET GOAL) Charging Machine Operator Goal (LTG) Pt will be independent with a progressive self care HEP. (04/28/21: I/S pt in chin tuck c. augie ex & proper postioning at computer/ADLs). (05/19/21: Issued Lev 2 TB and white strap with I/S for shoulder ER/IR/row/shldr ext/ lat pull down strengthening) LTG Duration 07/21/21 (05/19/21: Progressed self care) Progress Towards Goals Progress Comments Pt is able to dress and cook without R shoulder pain. L index finger pain persists, but resolved after therapy. Progressed strengthening HEP. LTG #2, #3 MET. Assessment Summary Assessment Fair postural awareness. Very good tolerance to ex's with no c/o pain. Pt needs further cervical stab with ex. Pt has good recall of home ex's. Physical Therapy Plan Frequency and Duration Frequency of Treatment 2x/Week Plan of Care Start Date 04/22/21 Plan of Care End Date 07/21/21 Next Visit Focus/Plan Next Note Type Discharge Summary Next Visit Plan Issue as needed HEP. DC to HEP if no pain and pt feels ready for self care.
--- NOTE | 2021-05-23 15:58 | PT.OTN ---
Current Diagnoses Pain in right shoulder (05/23/21) Radiculopathy, cervical region (05/23/21) Muscle weakness (generalized) (05/23/21) Physical Therapy Treatment Note PT-OP-A Visit Information Start: 04/18/21 18:16 Freq: Status: Active Protocol: Document 05/23/21 08:22 LRN (Rec: 05/23/21 09:03 LRN [id number]) Out-Patient Physical Therapy Visit Information Visit Information Visit Type Treatment Note Visit Start Time 08:22 Visit Stop Time 09:02 Total Visit Minutes 40 Visit Number 9 Evaluation Information Evaluation Date 04/22/21 Precautions Precautions Osteoporosis,ACL repair of both knees, arthritis of R hip and both knees. PT-OP-B Current Condition Start: 04/18/21 18:16 Freq: Status: Active Protocol: Document 04/22/21 08:18 LRN (Rec: 04/22/21 09:06 LRN [id number]) Current Condition History of Current Condition Onset Date 04/07/21 Current Complaints R neck, upper shldr, intense pn at top of shldr, posterior elbow/brachium History of Current Condition Pain is worse with use of arms . Pt reports she was helping son move to and put backpack on R shoulder and the packpack slid off the shoulder onto the elbow. Carried it on the elbow, then on the ride home she started to feel pain down the back of the R brachium to the elbow. After a couple days had R arm pain and intense pain at the R elbow. Now has stiffness in the shoulder blades and neck. Getting a back spasm under the R scapula. Started to have pain in the L neck and upper shoulder a week ago (a week after it happened started to get sore shoulders and a puffy feeling). She is having a lot of pain at night. Her L side is minor. Prior Treatments and Tests None Pt self treatments: Uses ice pack during the day and at night. Taking Tylenol occasionally. Takes back spasm medications occasionally . 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 Treatment Goals Patient/Caregiver Goals Pt goal is: to be able to use mouse and writing with hand without R shoulder pain. to be able to use R arm ( cooking), dressing. Prior Functional Status Baseline Function- ADL's Independent Baseline Function- Mobility Independent Baseline Function- Other Pain in neck and shoulders after doing a lot of home cooking, pain is 6/10 dull pain level 4-6 takes metilcarpinol for a few days, if it doesn't fix it, then she takes diazapin to go to bed and itll resolve after a couple days (along with Tylenol). 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 Personal Factors Other Personal Factors That May Effect Osteoporosis, back pain. Therapy/Recovery Spouse is radiologist. PT-OP-C Subjective Start: 04/18/21 18:16 Freq: Status: Active Protocol: Document 05/23/21 08:22 LRN (Rec: 05/23/21 09:03 LRN [id number]) OP-PT Subjective Patient Comments Patient Comments States no pain to start. At time sthe Rshoulder becomes achy deep inside. PT-OP-E Functional Tests Start: 04/18/21 18:16 Freq: Status: Active Protocol: Document 04/22/21 08:18 LRN (Rec: 04/22/21 09:06 LRN [id number]) Functional Tests Apley's Scratch Test Action 1- Left Below spine of scapula Action 1- Right Below anterior shoulder Action 2- Left T4 Action 2- Right T1 Action 3- Left T7 Action 3- Right T11 PT-OP-H Neuro Start: 04/18/21 18:16 Freq: Status: Active Protocol: Document 04/22/21 08:18 LRN (Rec: 04/22/21 09:06 LRN [id number]) Sensation Evaluation Gross Sensation Gross Sensation WNL PT-OP-J Posture/Palpation/Skin Start: 04/18/21 18:16 Freq: Status: Active Protocol: Document 04/22/21 08:18 LRN (Rec: 04/22/21 09:06 LRN [id number]) Posture Evaluation Position Standing Head/C-Spine Posture Forward Head T-Spine Posture Increased Kyphosis L-Spine Posture Decreased Lordosis Scapula Posture (R) Rotated Down,(R) Depressed Arm Posture (L) Internally Rotated,(R) Internally Rotated Pelvis Posture Posterior Tilted Weight Distribution Balanced Knee Posture (L) Genu Varus,(R) Genu Varus Comments Posture Comments R shoulder & scapula low, head/neck shifted right. Palpation Assessment Location R intrascapular region Palpation Location Rhomboids Palpation Details Atrophy R intrascapular region PT-OP-K Range of Motion Start: 04/18/21 18:16 Freq: Status: Active Protocol: Document 05/19/21 08:17 LRN (Rec: 05/19/21 09:02 LRN [id number]) Shoulder Goniometric Range of Motion Shoulder Right Active Testing Position Sitting Flexion 165 Extension 70 Abduction 180 External Rotation at 0 degrees Abduction 85 Internal Rotation Behind Back (text) T7 Left Active Shoulder ROM WFL Yes Testing Position Sitting Flexion 160 Extension 70 Abduction 180 External Rotation at 0 degrees Abduction 75 Internal Rotation Behind Back (text) T6 PT-OP-L Special Tests Start: 04/18/21 18:16 Freq: Status: Active Protocol: Document 04/28/21 08:17 LRN (Rec: 04/28/21 10:20 LRN [id number]) Special Tests Cervical Spine Special Tests Traction Test Results postive Foraminal Compression Test Results neg Spurling's Test Test Results neg PT-OP-M Strength Start: 04/18/21 18:16 Freq: Status: Active Protocol: Document 04/22/21 08:18 LRN (Rec: 04/22/21 09:06 LRN [id number]) Cervical Spine Strength Cervical Spine Manual Muscle Testing Flexion (C1-2) 5 Normal Extension 5 Normal Lateral Flexion Left (C3) 5 Normal Lateral Flexion Right (C3) 5 Normal Comments Pain relief with ext, Pain with R SB. Shoulder Strength Shoulder Manual Muscle Testing Right Flexion 5 Normal Extension 5 Normal Abduction (C5) 5 Normal Adduction 5 Normal External Rotation 5 Normal Internal Rotation 3 Fair Comments Pain with testing of IR, ext. Left Comments Generally 5/5 with all muscle groups PT-OP-Q Treatments Start: 04/18/21 18:16 Freq: Status: Active Protocol: Document 05/23/21 08:22 LRN (Rec: 05/23/21 09:03 LRN [id number]) Cardio Equipment Recumbent Elliptical (Ascentis) Duration (Minutes) 5 Resistance 1 Seat Position 5 Therapeutic Exercises Supine Exercises Sage shoulder flex Supine Exercise Name Sage shoulder flex - End range hold Side bilateral Reps/Minutes 10 holds = 2 breaths x 15 Comments Extra time with cuing for hold at end range. Prone Exercises JT Prone Exercise Name JT for upper thoracic ext C7- T3, neck elongated Reps/Minutes 10 = 2 breaths H x 5 Sitting Exercises Sage shoulder EXT & AB Sitting Exercise Name Sage shoulder ext & AB Side bilateral Reps/Minutes 30x Shoulder ER/IR Sitting Exercise Name ARROM Side bilateral Reps/Minutes 30x IR, 15x ER Other Exercises Leaning w/hands on wall Other Exercise Name Leaning into hands for neck ext Reps/Minutes 2' Hands on plinth Other Exercise Name FB at various angles for neck ext Reps/Minutes 6' Manual Therapy Treatment Soft Tissue Mobilization C7/T1 Body Location C7/T1 Spinous Process Mobilization Type Sustained Pressure Intensity/Depth Moderate Body Position Supine Comments Balancing of Cervicothoracic junction on left & right side. Counter pressure at Sternum & R Coricoid. PT-OP-R Modalities Start: 04/18/21 18:16 Freq: Status: Active Protocol: Document 05/12/21 08:17 LRN (Rec: 05/12/21 09:03 LRN [id number]) Electric Stimulation Electric Stimulation Interferential Current (IFC) Body Location R Subscapularis [UT/Deltoid > Pec/Posterior R scapula] Duration (Minutes) 10 Intensity 11 Combined With Heat/Cold Hot Pack Comments Pt semi-reclined Hot Pack/Cold Pack Treatment Hot Pack Location Back & R shoulder Patient Position Supine Treatment Duration (minutes) 10 PT-OP-T Assessment and Plan Start: 04/18/21 18:16 Freq: Status: Active Protocol: Document 05/23/21 08:22 LRN (Rec: 05/23/21 09:03 LRN [id number]) Physical Therapy Assessment Goals Three Impairment Decreased functional strength. Custodial Goal (LTG) Pt will be able to use R arm ( cooking). (05/01/21: Cooking, but using L arm more and using annealing torch operator cookware). LTG Duration 06/21/21 (05/19/21: MET GOAL) Two Impairment Decreased ROM Short Term Goal (STG) Pt will be able to use mouse and write without R shoulder pain. (04/28/21: Less R shoulder pain with use of mouse) (05/01/21: Can take notes with elbow in by sides) STG Duration 05/22/21 (04/28/21: MET GOAL w/modification of activity) R D Manager Goal (LTG) Pt will be able to dress without pain. (05/01/21: Pain, keeps dressing simple, can't use blow dryer due to pain). LTG Duration 06/21/21 (05/19/21: MET GOAL) One Impairment Pt lacks appropriate self care HEP Short Term Goal (STG) Educate pt on proper body mechanics & transfer techniques. STG Duration 04/29/21 (04/24/21: MET GOAL) Custodial Goal (LTG) Pt will be independent with a progressive self care HEP. (04/28/21: I/S pt in chin tuck c. vania ex & proper postioning at computer/ADLs). (05/19/21: Issued Lev 2 TB and white strap with I/S for shoulder ER/IR/row/shldr ext/ lat pull down strengthening) (05/23/21: I/S pt in neck ext strengthening - leaning over plinth) LTG Duration 07/21/21 (05/19/21: Progressed self care) Assessment Summary Assessment Improved postural awareness, but pt appears to have R shoulder pain during Biodex due to postural dysfunction. Pain relief with manual C.tx. Physical Therapy Plan Frequency and Duration Frequency of Treatment 2x/Week Plan of Care Start Date 04/22/21 Plan of Care End Date 07/21/21 Next Visit Focus/Plan Next Note Type Progress Note Next Visit Plan Progress C/S stabilization. POsible DC to HEP in 2 weeks if no pain and pt feels ready for self care.
--- NOTE | 2021-05-30 08:24 | PT-OP ANOTE ---
Cx due to not feeling well.
--- NOTE | 2021-07-03 15:06 | PT.OPDS ---
Current Diagnoses Pain in right shoulder (05/23/21) Radiculopathy, cervical region (05/23/21) Muscle weakness (generalized) (05/23/21) Visit Care Team Role Provider Type Sheri Christopher PA-C Referring Provider Non-Staff Specialty: Internal Medicine Address: [address] [place] [address] Email: [email or web address] Asa Regalado MD Attending Provider Non-Staff Family Provider Primary Care Provider Specialty: Internal Medicine Address: [address] [place] [address], [id number] Email: Visit Number Visit Number 9 Discharge Summary PT-OP-B Current Condition Start: 04/18/21 18:16 Freq: Status: Active Protocol: Document 04/22/21 08:18 LRN (Rec: 04/22/21 09:06 LRN [id number]) Current Condition History of Current Condition Onset Date 04/07/21 Current Complaints R neck, upper shldr, intense pn at top of shldr, posterior elbow/brachium History of Current Condition Pain is worse with use of arms . Pt reports she was helping son move to and put backpack on R shoulder and the packpack slid off the shoulder onto the elbow. Carried it on the elbow, then on the ride home she started to feel pain down the back of the R brachium to the elbow. After a couple days had R arm pain and intense pain at the R elbow. Now has stiffness in the shoulder blades and neck. Getting a back spasm under the R scapula. Started to have pain in the L neck and upper shoulder a week ago (a week after it happened started to get sore shoulders and a puffy feeling). She is having a lot of pain at night. Her L side is minor. Prior Treatments and Tests None Pt self treatments: Uses ice pack during the day and at night. Taking Tylenol occasionally. Takes back spasm medications occasionally . 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 Treatment Goals Patient/Caregiver Goals Pt goal is: to be able to use mouse and writing with hand without R shoulder pain. to be able to use R arm ( cooking), dressing. Prior Functional Status Baseline Function- ADL's Independent Baseline Function- Mobility Independent Baseline Function- Other Pain in neck and shoulders after doing a lot of home cooking, pain is 6/10 dull pain level 4-6 takes metilcarpinol for a few days, if it doesn't fix it, then she takes diazapin to go to bed and itll resolve after a couple days (along with Tylenol). 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 Personal Factors Other Personal Factors That May Effect Osteoporosis, back pain. Therapy/Recovery Spouse is radiologist. PT-OP-C Subjective Start: 04/18/21 18:16 Freq: Status: Active Protocol: Document 05/23/21 08:22 LRN (Rec: 05/23/21 09:03 LRN [id number]) OP-PT Subjective Patient Comments Patient Comments States no pain to start. At time sthe Rshoulder becomes achy deep inside. PT-OP-E Functional Tests Start: 04/18/21 18:16 Freq: Status: Active Protocol: Document 04/22/21 08:18 LRN (Rec: 04/22/21 09:06 LRN [id number]) Functional Tests Apley's Scratch Test Action 1- Left Below spine of scapula Action 1- Right Below anterior shoulder Action 2- Left T4 Action 2- Right T1 Action 3- Left T7 Action 3- Right T11 PT-OP-H Neuro Start: 04/18/21 18:16 Freq: Status: Active Protocol: Document 04/22/21 08:18 LRN (Rec: 04/22/21 09:06 LRN [id number]) Sensation Evaluation Gross Sensation Gross Sensation WNL PT-OP-J Posture/Palpation/Skin Start: 04/18/21 18:16 Freq: Status: Active Protocol: Document 04/22/21 08:18 LRN (Rec: 04/22/21 09:06 LRN [id number]) Posture Evaluation Position Standing Head/C-Spine Posture Forward Head T-Spine Posture Increased Kyphosis L-Spine Posture Decreased Lordosis Scapula Posture (R) Rotated Down,(R) Depressed Arm Posture (L) Internally Rotated,(R) Internally Rotated Pelvis Posture Posterior Tilted Weight Distribution Balanced Knee Posture (L) Genu Varus,(R) Genu Varus Comments Posture Comments R shoulder & scapula low, head/neck shifted right. Palpation Assessment Location R intrascapular region Palpation Location Rhomboids Palpation Details Atrophy R intrascapular region PT-OP-K Range of Motion Start: 04/18/21 18:16 Freq: Status: Active Protocol: Document 05/19/21 08:17 LRN (Rec: 05/19/21 09:02 LRN [id number]) Shoulder Goniometric Range of Motion Shoulder Right Active Testing Position Sitting Flexion 165 Extension 70 Abduction 180 External Rotation at 0 degrees Abduction 85 Internal Rotation Behind Back (text) T7 Left Active Shoulder ROM WFL Yes Testing Position Sitting Flexion 160 Extension 70 Abduction 180 External Rotation at 0 degrees Abduction 75 Internal Rotation Behind Back (text) T6 PT-OP-L Special Tests Start: 04/18/21 18:16 Freq: Status: Active Protocol: Document 04/28/21 08:17 LRN (Rec: 04/28/21 10:20 LRN [id number]) Special Tests Cervical Spine Special Tests Traction Test Results postive Foraminal Compression Test Results neg Spurling's Test Test Results neg PT-OP-M Strength Start: 04/18/21 18:16 Freq: Status: Active Protocol: Document 04/22/21 08:18 LRN (Rec: 04/22/21 09:06 LRN [id number]) Cervical Spine Strength Cervical Spine Manual Muscle Testing Flexion (C1-2) 5 Normal Extension 5 Normal Lateral Flexion Left (C3) 5 Normal Lateral Flexion Right (C3) 5 Normal Comments Pain relief with ext, Pain with R SB. Shoulder Strength Shoulder Manual Muscle Testing Right Flexion 5 Normal Extension 5 Normal Abduction (C5) 5 Normal Adduction 5 Normal External Rotation 5 Normal Internal Rotation 3 Fair Comments Pain with testing of IR, ext. Left Comments Generally 5/5 with all muscle groups PT-OP-T Assessment and Plan Start: 04/18/21 18:16 Freq: Status: Active Protocol: Document 07/03/21 15:02 LRN (Rec: 07/03/21 15:06 LRN [id number]) Physical Therapy Assessment Goals Three Impairment Decreased functional strength. Forensic Pathologist Goal (LTG) Pt will be able to use R arm ( cooking). (05/01/21: Cooking, but using L arm more and using pest control supervisor cookware). LTG Duration 06/21/21 (05/19/21: MET GOAL) Two Impairment Decreased ROM Short Term Goal (STG) Pt will be able to use mouse and write without R shoulder pain. (04/28/21: Less R shoulder pain with use of mouse) (05/01/21: Can take notes with elbow in by sides) STG Duration 05/22/21 (04/28/21: MET GOAL w/modification of activity) Skilled Nursing Goal (LTG) Pt will be able to dress without pain. (05/01/21: Pain, keeps dressing simple, can't use blow dryer due to pain). LTG Duration 06/21/21 (05/19/21: MET GOAL) One Impairment Pt lacks appropriate self care HEP Short Term Goal (STG) Educate pt on proper body mechanics & transfer techniques. STG Duration 04/29/21 (04/24/21: MET GOAL) Forensic Pathologist Goal (LTG) Pt will be independent with a progressive self care HEP. (04/28/21: I/S pt in chin tuck c. vania ex & proper postioning at computer/ADLs). (05/19/21: Issued Lev 2 TB and white strap with I/S for shoulder ER/IR/row/shldr ext/ lat pull down strengthening) (05/23/21: I/S pt in neck ext strengthening - leaning over plinth) LTG Duration 07/21/21 (07/03/21: MET GOAL) Assessment Summary Assessment Pt was last seen 05/23/21. She called on 06/04/21 requesting discharge from PT due to her HEP was working. On her last attended visit the pt had improved postural awareness and R shoulder pain onset was relieved with manual C. tx. Pt goals met. Physical Therapy Plan Discharge Physical Therapy Discharge Reasons Patient Request Discharge Comments Pt felt her HEP was working and requested discharge from PT. Thank you for your referral.
== END 2021-07-08 14:03 ==
LOC: PHYS 08:15
PROVIDERS: Family Provider Internal Medicine; PCP Internal Medicine; Referring Provider Student in an Organized Health Care Education/Training Program; Visit Provider Internal Medicine
DX: M25.511 Pain in right shoulder (principal); M62.81 Muscle weakness (generalized); M54.12 Radiculopathy, cervical region
CPT/HCPCS: 97014; 97035; 97110; 97140; 97162; 97535; G0283

== ENCOUNTER → 2021-11-13 11:18 | Outpatient (CLI) | payer OTHER, SELFPAY ==
[2019-12-29 16:54] VITALS: BMI 29.2
--- NOTE | 2021-11-13 | DI.RAD.S_ITS ---
PROCEDURE: XR LUMBAR SPINE 2-3V INDICATIONS: LOW BACK PAIN / RIGH HIP PAIN TECHNIQUE: 3 views of the lumbar spine were acquired. COMPARISON: [facility], , XR LUMBAR SPINE 2-3V, 12/25/2019, 16:56. FINDINGS: Transitional anatomy is present. The lowest lumbar type vertebral body has partial sacralization on left with a pseudoarticulation which demonstrates some degenerative irregularity and sclerosis along the articular surfaces. Degenerative anterolisthesis of L4 on L5 measuring 5 mm. Otherwise normal alignment. Vertebral body heights maintained. Disc height loss at L4-L5 and L5-S1 with facet hypertrophy from L2-L3 through L5-S1. Mild degenerative changes in the inferior sacroiliac joints with joint space narrowing and osteophytosis. 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 Correlate for any corresponding left lower back pain. (Bertolotti syndrome). Mild inferior sacroiliac joint osteoarthritic changes. Moderate lower lumbar spine degenerative changes. Dictated by: Gerard Dwyer M.D. on 11/13/2021 at 16:06 Approved by: Gerard Dwyer M.D. on 11/13/2021 at 16:09
--- NOTE | 2021-11-13 | DI.RAD.S_ITS ---
PROCEDURE: XR HIP W PEL IF DONE RT 2V INDICATIONS: LOW BACK PAIN / RIGH HIP PAIN TECHNIQUE: 2 views of the hip were acquired. COMPARISON: [facility], CR, XR LUMBAR SPINE 2-3V, 11/13/2021, 11:37. FINDINGS: [id number] femoroacetabular joint space narrowing on the right subchondral sclerosis in the right acetabular roof and small marginal osteophytes. There also appears to be some mild subchondral cystic change involving the acetabular roof and superior articular surface of the femoral head. There is mild joint space narrowing on the left without significant subchondral changes or osteophytosis. There is no evidence of a femoroacetabular impingement morphology. Mild inferior sacroiliac osteoarthritic changes. IMPRESSION: Vyhn-jc-[id number] right femoroacetabular osteoarthritis. Mild bilateral inferior sacroiliac osteoarthritis. Dictated by: Gerard Dwyer M.D. on 11/13/2021 at 16:02 Approved by: Gerard Dwyer M.D. on 11/13/2021 at 16:06
== END ==
PROVIDERS: Family Provider Internal Medicine; PCP Internal Medicine; Referring Provider Internal Medicine; Visit Provider Internal Medicine
DX: M16.11 Unilateral primary osteoarthritis, right hip (principal); M46.1 Sacroiliitis, not elsewhere classified; M47.816 Spondylosis without myelopathy or radiculopathy, lumbar region; M47.817 Spondylosis without myelopathy or radiculopathy, lumbosacral region; M25.551 Pain in right hip; M54.50 Low back pain, unspecified
CPT/HCPCS: 72100; 73502

== ENCOUNTER → 2021-12-27 08:54 | Outpatient (CLI) | payer OTHER, SELFPAY ==
[2021-12-09 15:57] VITALS: BMI 29.2
--- NOTE | 2021-12-27 08:56 | DI.MG.S_ITS ---
BILATERAL DIGITAL SCREENING MAMMOGRAM 3D/2D WITH CAD: 12/27/2021 CLINICAL: Routine screening. Comparison is made to exams dated: 03/26/2020 mammogram, 10/05/2018 mammogram, and 04/23/2017 mammogram - [facility]. There are scattered areas of fibroglandular density in both breasts (category b / 25%-50% glandular tissue). Current study was also evaluated with a Computer Aided Detection (CAD) system. No significant masses, calcifications, or other findings are seen in either breast. There has been no significant interval change. IMPRESSION: NEGATIVE There is no mammographic evidence of malignancy. A 1 year screening mammogram is recommended. Based on the Tyrer Cuzick model (a risk assessment model) the patient's lifetime risk is 9.2% and her 10 year risk is 4.1%. According to the ACR, ACS, and NCCN guidelines, an annual breast MRI exam along with mammogram is recommended if the patient's lifetime risk is 20% or greater. This exam was interpreted at Station ID: [id number]. NOTE: For mammograms, a report in lay terms will be sent to the patient. Approximately 15% of breast malignancies will not be visualized mammographically. In the management of a palpable breast mass, a negative mammogram must not discourage biopsy of a clinically suspicious lesion. Electronically Signed By: Gerard Dwyer M.D., jr/obed:12/29/2021 12:58:50 letter sent: Normal Exam ACR BI-RADS Category 1: Negative [id number]
[2021-12-27 09:35] LABS: Add Manual Diff / Slide Review NO; Basophils Absolute Auto 0 /uL (0-100); Basophils Percent Auto 0.3 % (0-2); Eosinophils Absolute Auto 100 /uL (0-450); Eosinophils Percent Auto 1.4 % (2-4); Hematocrit 38.1 % (36-46); Hemoglobin 12.7 g/dL (12.0-16.0); Lymphocytes Absolute Auto 2000 /uL (1100-4500); Lymphocytes Percent Auto 37.4 % (25-40); Mean Corpuscular HGB Conc 33.4 % (30-36); Mean Corpuscular Hemoglobin 29.4 PG (26-34); Monocytes Absolute Auto 500 /uL (0-900); Monocytes Percent Auto 9.2 % (3-14); Neutrophils Absolute Auto 2700 /uL (1500-7000); Neutrophils Percent Auto 51.7 % (50-75); Platelet Count 288 X10^3/uL (150-400); Red Blood Cell Count 4.33 X10^6/uL (4.0-5.2); White Blood Cell Count 5.3 X10^3/uL (4.5-11.0)
[2021-12-27 09:41] LABS: Appearance Urine UA CLEAR; Bilirubin Urine UA NEGATIVE (NEGATIVE); Color Urine UA YELLOW; Glucose Urine UA NEGATIVE (Negative); Ketones Urine UA NEGATIVE (NEGATIVE); Leukocyte Esterase Urine UA TRACE (NEGATIVE); Nitrite Urine UA NEGATIVE (Negative); Occult Blood Urine UA NEGATIVE (Negative); Protein Urine UA 1+ (Negative); Urobilinogen Urine UA 0.2 E.U./dL (0.2)
[2021-12-27 09:44] LABS: pH Urine UA 8.5 (4.5-8.0)
[2021-12-27 09:49] LABS: Amorphous Sediment Urine 1+; Bacteria Urine Occasional (0-1); Culture Indicated Urine Specimen Cultured; RBC Urine None Seen (0-5/HPF); WBC Urine 0-1/HPF (0-5/HPF)
[2021-12-27 09:56] LABS: Alanine Aminotransferase 16 IU/L (<35); Albumin 4.2 g/dL (3.5-5.0); Albumin Globulin Ratio 1.8 (1.0-2.8); Alkaline Phosphatase 72 U/L (38-126); Aspartate Aminotransferase 20 IU/L (14-36); BUN Creatinine Ratio 18.8 (6-22); Bilirubin Total 0.5 mg/dL (0.2-1.3); Blood Urea Nitrogen 15 mg/dL (7-17); Calcium 8.9 mg/dL (8.4-10.2); Carbon Dioxide 27 mmol/L (22-32); Chloride 105 mmol/L (98-107); Cholesterol 258 mg/dL (140-199); Estimated Glomerular Filt Rate > 60 mL/min (>60); Globulin 2.4 g/dL (1.7-4.1); Glucose 94 mg/dL (80-110); HDL Cholesterol 79 mg/dL (40-60); HEMOLYSIS < 15 (0-50); LDL Cholesterol Calculated 161 mg/dL (<100); Potassium 4.7 mmol/L (3.4-5.1); Sodium 140 mmol/L (137-145); Total Protein 6.6 g/dL (6.3-8.2); Triglycerides 89 mg/dL (35-150)
[2021-12-27 10:22] LABS: TSH w/ Reflex to FT4 1.55 uIU/mL (0.47-4.68)
== END ==
PROVIDERS: Family Provider Internal Medicine; PCP Family Medicine; Referring Provider Family Medicine; Visit Provider Family Medicine
DX: Z12.31 Encounter for screening mammogram for malignant neoplasm of breast (principal); D64.9 Anemia, unspecified; Z00.00 Encounter for general adult medical examination without abnormal findings
CPT/HCPCS: 36415; 77063; 77067; 80053; 80061; 81001; 84443; 85025; 87086

== ENCOUNTER → 2022-01-16 10:32 | Outpatient (CLI) | payer OTHER, SELFPAY ==
[2021-12-09 15:57] VITALS: BMI 29.2
== END ==
PROVIDERS: Family Provider Internal Medicine; PCP Family Medicine; Visit Provider Registered Nurse
DX: J02.9 Acute pharyngitis, unspecified (principal)
CPT/HCPCS: 87070

== ENCOUNTER → 2022-01-20 12:22 | Outpatient (CLI) | payer OTHER, SELFPAY ==
[2021-12-09 15:57] VITALS: BMI 29.2
[2022-01-20 13:41] LABS: COVID19 -Nasal RAPID POSITIVE (Negative)
== END ==
PROVIDERS: Family Provider Internal Medicine; PCP Family Medicine; Referring Provider Family Medicine; Visit Provider Family Medicine
DX: U07.1 COVID-19 (principal); T73.3XXA Exhaustion due to excessive exertion, initial encounter
CPT/HCPCS: 87635; C9803

== ENCOUNTER → 2022-07-03 07:36 | Outpatient (CLI) | payer OTHER, SELFPAY ==
[2021-12-09 15:57] VITALS: BMI 29.2
--- NOTE | 2022-07-03 07:37 | DI.ECHO.S_ITS ---
[facility]---------+ [facility] +---------+ : : [address] : : : : [id number] : : : : Phone: [phone]+ Echocardiogram Report + + :Name: GEORGIA OWEN Study Date: 07/03/2022 Height: 63 in : :[facility] ReadingLocation: Weight: 152 lb : : Gender: Female BSA: 1.7 m2 : :: 1960 Age: 61 yrs BP: 136/76 mmHg: :Reason For Study: MURMUR HR: 70 : :Ordering Physician: KATIA, : :CHUN Performed By: CLINT BELTRÁN : :Referring: CHUN MONTALVO : + + Interpretation Summary The left ventricle is normal in size and wall thickness. The ejection fraction is estimated to be 65-70%. The right ventricle is normal in size and function. There is mild to moderate tricuspid regurgitation. The right ventricular systolic pressure is estimated to be at least 31 mmHg based on an estimated right atrial pressure of 3 mm Hg. Mild atherosclerotic plaque(s) in the aortic arch. Procedure: A two-dimensional transthoracic echocardiogram with color flow and Doppler was performed. The study quality was technically adequate. The patient was in normal sinus rhythm during the exam. Left Ventricle: The left ventricle is normal in size and wall thickness. There is no thrombus. Left ventricular systolic function is normal. The ejection fraction is estimated to be 65-70%. There are no focal wall motion abnormalities. Diastolic parameters suggest a relaxation abnormality of the left ventricle, consistent with probable normal filling pressures. Right Ventricle: The right ventricle is normal in size and function. Atria: The left atrium is mildly dilated. The right atrium is normal in size. There is no Doppler evidence for an interatrial shunt. Mitral Valve: There is mild mitral annular calcification. There is trace mitral regurgitation. Aortic Valve: The aortic valve is trileaflet. The aortic valve opens well. The aortic valve is mildly calcified. There is no aortic valve stenosis. No aortic regurgitation is present. Tricuspid Valve: The tricuspid valve is normal. There is mild to moderate tricuspid regurgitation. The right ventricular systolic pressure is estimated to be at least 31 mmHg based on an estimated right atrial pressure of 3 mm Hg. Pulmonic Valve: The pulmonic valve leaflets are thin and pliable; valve motion is normal. There is no pulmonic valvular regurgitation. Great Vessels: The aortic root is normal size. The ascending aorta is at the upper limits of normal in size. Mild atherosclerotic plaque(s) in the aortic arch. The IVC is of normal diameter and collapses greater than 50% with a sniff. This suggests a low right atrial pressure of 3 mm Hg. Pericardium/ Pleura There is no pericardial effusion. There is no pleural effusion. MMode/2D Measurements & Calculations LVIDd: 3.7 cm LVOT diam: 1.7 cm LVIDs: 2.3 cm Ao root diam: 3.0 cm FS: 38.3 % asc Aorta Diam: 3.9 cm IVSd: 0.72 cm LVPWd: 0.88 cm LV norwood. diameter/BSA (cm/m^2): 2.1 LV sys. diameter/BSA (cm/m^2): 1.3 LA A2 area: 24.9 cm2 RA long axis: 4.5 cm LA A4 area: 13.7 cm2 RA area: 12.9 cm2 LA length (vol): 4.4 cm RA vol: 31.6 ml LA vol: 66.1 ml RA : 18.3 ml/m2 LA vol index: 38.4 ml/m2 IVC diam: 1.4 cm RVD1 (basal): 3.6 cm TAPSE: 1.8 cm Doppler Measurements & Calculations Ao V2 max: 141.9 cm/sec LVOT Max Adolph: 117.4 cm/sec Ao V2 mean: 98.7 cm/sec LV V1 max P.5 mmHg Ao max P.1 mmHg LV V1 VTI: 27.2 cm Ao mean P.3 mmHg EVELINA(I,D): 2.0 cm2 Ao V2 VTI: 30.8 cm EVELINA(V,D): 1.9 cm2 sev ratio: 0.88 EVELINA indexed to BSA (cm^2/m^2): 1.2 MV E max adolph: 66.7 cm/sec TR max adolph: 264.6 cm/sec MV A max adolph: 84.2 cm/sec TR max P.0 mmHg MV E/A: 0.79 PA V2 max: 85.9 cm/sec Med Peak E' Adolph: 7.5 cm/sec PA V2 mean: 60.8 cm/sec E/E' med: 8.9 PA mean P.6 mmHg Lat Peak E' Adolph: 10.3 cm/sec PA pr(Accel): 22.5 mmHg E/E' lat: 6.5 E/e' average: 7.7 MV dec time: 0.24 sec SV(LVOT): 63.1 ml Reading Physician:06:06 PM
--- NOTE | 2022-07-03 07:37 | DI.NM.S_ITS ---
PROCEDURE: NM EXERCISE TREADMILL NON NUC COMPARISON: None. INDICATIONS: Exercise induced fatigue FINDINGS: The patient exercised for 6 minutes and 9 seconds reaching 90% of maximum predicted heart rate. 7.0 METs, ALICE +5%. Appropriate BP response to exercise. No chest pain during the study. No ST changes and no ectopy during the study. IMPRESSION: Low risk, normal treadmill ECG only stress test with slightly reduced exercise tolerance (ALICE +5%). Dictated by: Donna Steiner MD on 07/03/2022 at 14:01 Approved by: Donna Steiner MD on 07/03/2022 at 14:02
== END ==
PROVIDERS: Family Provider Internal Medicine; PCP Family Medicine; Referring Provider Family Medicine; Visit Provider Family Medicine
DX: R01.1 Cardiac murmur, unspecified (principal); T73.3XXA Exhaustion due to excessive exertion, initial encounter
CPT/HCPCS: 93017; 93306

== ENCOUNTER → 2022-10-09 08:54 | Outpatient (CLI) | payer OTHER, SELFPAY ==
[2022-08-11 16:48] VITALS: BMI 29.2
[2022-10-09 09:49] LABS: Add Manual Diff / Slide Review NO; Basophils Absolute Auto 0 /uL (0-100); Basophils Percent Auto 0.2 % (0-2); Eosinophils Absolute Auto 100 /uL (0-450); Eosinophils Percent Auto 1.9 % (2-4); Hematocrit 35.6 % (36-46); Hemoglobin 11.8 g/dL (12.0-16.0); Lymphocytes Absolute Auto 2100 /uL (1100-4500); Lymphocytes Percent Auto 34.2 % (25-40); Mean Corpuscular Hemoglobin 27.5 PG (26-34); Mean Corpuscular Volume 83.3 fL (80-100); Monocytes Absolute Auto 600 /uL (0-900); Monocytes Percent Auto 10.5 % (3-14); Neutrophils Absolute Auto 3300 /uL (1500-7000); Neutrophils Percent Auto 53.2 % (50-75); Platelet Count 318 X10^3/uL (150-400); Red Blood Cell Count 4.28 X10^6/uL (4.0-5.2); Red Cell Distribution Width 14.9 % (11.6-14.8); White Blood Cell Count 6.2 X10^3/uL (4.5-11.0)
[2022-10-09 10:15] LABS: Alanine Aminotransferase 18 IU/L (<35); Albumin 4.1 g/dL (3.5-5.0); Albumin Globulin Ratio 1.6 (1.0-2.8); Alkaline Phosphatase 80 U/L (38-126); Aspartate Aminotransferase 19 IU/L (14-36); BUN Creatinine Ratio 18.9 (6-22); Bilirubin Total 0.5 mg/dL (0.2-1.3); Blood Urea Nitrogen 14 mg/dL (7-17); Calcium 8.6 mg/dL (8.4-10.2); Carbon Dioxide 26 mmol/L (22-32); Chloride 105 mmol/L (98-107); Estimated Glomerular Filt Rate > 60 mL/min (>60); Globulin 2.5 g/dL (1.7-4.1); Glucose 111 mg/dL (80-110); HEMOLYSIS < 15 (0-50); Potassium 4.8 mmol/L (3.4-5.1); Sodium 138 mmol/L (137-145); Total Protein 6.6 g/dL (6.3-8.2)
[2022-10-09 10:44] LABS: TSH w/ Reflex to FT4 1.41 uIU/mL (0.47-4.68)
== END ==
PROVIDERS: Family Provider Internal Medicine; PCP Family Medicine; Referring Provider Family Medicine; Visit Provider Family Medicine
DX: D64.9 Anemia, unspecified (principal); F41.8 Other specified anxiety disorders; R03.0 Elevated blood-pressure reading, without diagnosis of hypertension; R53.83 Other fatigue
CPT/HCPCS: 36415; 80053; 84443; 85025

== ENCOUNTER 2023-05-01 19:19 | Emergency (ER) | payer OTHER, SELFPAY ==
[2022-08-11 16:48] VITALS: BMI 29.2
[2023-05-01] VITALS (10 sets, daily range): BP systolic 119–145; BP diastolic 76–87; PULSE 52–73; RESP 16–34; O2SAT 92–98
--- NOTE | 2023-05-01 19:43 | ED_ITS ---
HPI - Fall General Chief Complaint: Fall Stated Complaint: fall, 4 stairs Time Seen by Provider: 05/01/23 19:23 History of Present Illness HPI Narrative: Patient healthy 62-year-old without significant past medical history presenting today with fall down 4-5 stairs. She reports that she was trying few protect the [address] She landed on her left shoulder. She denies any head injury or neck pain. But having significant left shoulder pain. No numbness or tingling down her arm. She is having some nausea vomiting. However she got fentanyl and Zofran with EMS. called prior to arrival reports that she gets very nauseous with any sort of pain medication and antinausea medications no generally work. She currently is tolerating the fentanyl but still feels a little bit nauseous no active vomiting. She has not on any antiplatelet or anticoagulation medication. She denies any rib pain. No abdominal pain or hip or pelvis pain. Related Data Home Medications Medication Instructions Recorded Confirmed multivitamin (Multiple Vitamins 1 tab PO QDAY ##0 08/01/11 10/09/22 tablet) estrogen topical DAILY 12/16/21 10/09/22 hydroeye EYE-BOTH DAILY 12/16/21 10/09/22 mecobalamin (vitamin B12) 5,000 mcg PO 12/16/21 10/09/22 mcg disintegrating tablet omega-3 fatty acids 500 mg capsule 500 mg PO DAILY 12/16/21 10/09/22 calcium carb,lactat-vitamin D3 PO 07/17/22 10/09/22 cholecalciferol (vitamin D3) 25 25 mcg PO DAILY 07/17/22 10/09/22 mcg (1,000 unit) capsule oxygen-air delivery systems 07/17/22 10/09/22 [Horizon Nasal Cpap System] progesterone micronized 100 mg 100 mg PO DAILY 07/17/22 10/09/22 capsule paxwzud-nucb-pdnid-oreg-capryl PO 07/17/22 10/09/22 Previous Rx's Medication Instructions Recorded propranolol 10 mg tablet 10 mg PO DAILY #90 tabs 10/09/22 bupropion HCl 100 mg tablet,12 hr 100 mg PO DAILY #90 ea 12/22/22 sustained-release pravastatin 20 mg tablet 20 mg PO BEDTIME #90 tabs 01/21/23 trazodone 100 mg tablet 100 mg PO BEDTIME PRN insomnia #90 04/30/23 tabs hydrocodone 5 mg-acetaminophen 325 1 tab PO Q6H PRN pain #20 tabs 05/01/23 mg tablet hydroxyzine HCl 25 mg tablet 25 mg PO QID PRN nausea and 05/01/23 vomiting #30 tabs Allergies Allergy/AdvReac Type Severity Reaction Status Date / Time cephalexin [CEPHALEXIN] Allergy Severe RASH/HIVES Verified 05/01/23 20:39 cyclobenzaprine Allergy Severe Hives Verified 05/01/23 20:39 [From Flexeril] hydrocodone AdvReac Intermediate Vomiting Verified 05/01/23 20:39 mirtazapine AdvReac Unknown Verified 05/01/23 20:39 tramadol AdvReac Unknown Rash Verified 05/01/23 20:39 Patient History Medical History Borderline hypertension Tenosynovitis Situational anxiety Hyperlipidemia Osteoarthritis (~1999) Allergies (~1996) Anxiety (~2001) Osteopenia (~2009) Foot pain (~1999) Cataracts, bilateral (~2016) GI bleeding (~2019) Knee pain Well adult exam Vertigo Anemia (~2019) Depression (~2001) Surgical History Anesthesia History of left knee surgery History of right knee surgery Family History Father Alcoholic Diabetes mellitus Mother Colon cancer Sister No significant medical problems Social History household members: spouse and children Smoking Status: Never smoker alcohol intake: never Smoking Status: Never smoker Substance Use Type: does not use Exam Initial Vital Signs Initial Vital Signs: Vital Signs Pulse Rate 58 L 05/01/23 19:19 Respiratory Rate 20 05/01/23 19:19 Blood Pressure 121/76 05/01/23 19:19 Pulse Oximetry 93 05/01/23 19:19 Oxygen Delivery Method Room Air 05/01/23 19:19 GENERAL: Alert pleasant 62-year-old female HEENT: Head atraumatic,EOMI, pupils reactive, face symmetric, moist mucous membranes NECK: No real vertebral tenderness but some mild paravertebral tenderness CARDIOVASCULAR: Regular rate and rhythm without murmurs, rubs or gallops. RESPIRATORY: Breath sounds equal bilaterally, no wheezes rales or rhonchi. Ribs are nontender ABDOMEN: Soft, nontender. Normoactive bowel sounds all 4 quadrants. No guarding or rebound. EXTREMITIES: Normal range of motion, no clubbing or edema. Neurovascularly intact Left shoulder no clavicle step-off pain to palpation able to move it some. Elbows with a normal limits distal radial pulse intact. Sensation over deltoid intact NEUROLOGICAL: Alert and oriented x4 SKIN: Warm, dry, no laceration, no petechiae, no rashes or lesions. Course Orders Ordered: ED Orders 05/01/23 19:43 CT cervical spine wo con Stat CT head/brain wo con Stat XR chest 1V Stat XR shoulder LT min 2V Stat 05/01/23 20:52 CT UE LT wo con Stat Discontinued Medications Hydrocodone Bitart/Acetaminophen (Hydrocodone/Acet 5/325 Tablet) 1 tab PO NOW ONE Stop: 05/01/23 20:39 Last Admin: 05/01/23 20:57 Dose: 1 tab Documented By: BRIDGET Hydrocodone Bitart/Acetaminophen (Hydrocodone/Acet 5/325 Prepack) 1 bottle MISC DIRECTED ONE Stop: 05/01/23 21:41 Last Admin: 05/01/23 22:16 Dose: 1 bottle Documented By: MATHEUS Fentanyl (Fentanyl 100 Mcg/2 Ml Inj) 25 mcg IV NOW ONE Stop: 05/01/23 20:39 Last Admin: 05/01/23 20:46 Dose: 25 mcg Documented By: RL Hydroxyzine Pamoate (Hydroxyzine Pamoate 25 Mg Capsule) 50 mg PO NOW ONE Stop: 05/01/23 20:39 Last Admin: 05/01/23 20:45 Dose: 50 mg Documented By: RL Hydroxyzine Pamoate (Hydroxyzine Pamoate 25 Mg Capsule) 25 mg PO NOW ONE Stop: 05/01/23 21:41 Last Admin: 05/01/23 22:16 Dose: 25 mg Documented By: TC Ketorolac Tromethamine (Ketorolac 30 Mg/Ml Vial) 15 mg IV NOW ONE Stop: 05/01/23 19:44 Last Admin: 05/01/23 20:19 Dose: 15 mg Documented By: TC Vital Signs Vital signs: Vital Signs - 8 hr 05/01/23 20:57 05/01/23 20:57 05/01/23 21:00 Pulse Rate 73 Respiratory Rate 25 H Blood Pressure 145/87 H 125/87 Pulse Oximetry 05/01/23 21:00 05/01/23 21:30 Pulse Rate 70 67 Respiratory Rate 29 H Blood Pressure Pulse Oximetry 98 MDM - Fall Imaging Data CT - cervical spine: Radiologist's Impression: PROCEDURE: CT CERVICAL SPINE WO CON INDICATIONS: fall with pain TECHNIQUE: Noncontrast 3 mm thick sections acquired from the skull base to the T4 level. Sagittal and coronal reformats were then constructed. For radiation dose reduction, the following was used: automated exposure control, adjustment of mA and/or kV according to patient size. COMPARISON: [facility], XR SHOULDER LT MIN 2V, 05/01/2023, 19:49. FINDINGS: Image quality: Excellent. Bones: No fractures or dislocations. Visualized superior ribs are intact. Soft tissues: Prevertebral soft tissues are normal in thickness. No paravertebral hematomas. No apical pneumothoraces. The previously identified comminuted moderately impacted and displaced proximal humeral head/neck fractures are also partially visualized by this study. IMPRESSION: No displaced cervical fracture or traumatic subluxation. Note is again made of acute fractures involving the humeral head and neck area on the left. Dictated by: Baljit Cleveland M.D. on 05/01/2023 at 20:25 Approved by: Baljit Cleveland M.D. on 05/01/2023 at 20:29 Chest x-ray: Radiologist's Impression: PROCEDURE: XR CHEST 1V INDICATIONS: fall TECHNIQUE: One view of the chest was acquired. COMPARISON: [facility], CHEST 1 VIEW, 01/08/2016, 15:58. [facility], CHEST 2 VIEW, 08/01/2011, 13:54. FINDINGS: Surgical changes and devices: None. Lungs and pleura: Lungs are clear. No pleural effusions or pneumothorax. Mediastinum: Mediastinal contours appear normal. There is a moderate-sized hiatal hernia behind the heart. Heart size is normal. Bones and chest wall: No suspicious bony lesions. Acute trauma has been identified also same day involving the right proximal humerus where a mildly impacted and angulated comminuted humeral head/neck junction fracture is described. Overlying soft tissues appear unremarkable. IMPRESSION: No acute cardiopulmonary abnormality is seen. Please also refer to acute trauma left shoulder plain films from same day. Moderate-sized hiatal hernia behind the heart. Dictated by: Baljit Cleveland M.D. on 05/01/2023 at 20:19 CT scan - head: Radiologist's Impression: PROCEDURE: CT HEAD/BRAIN WO CON INDICATIONS: fall with vomiting TECHNIQUE: Noncontrast 4.5 mm thick angled axial sections acquired from the foramen magnum to the vertex, with coronal and sagittal reformats. For radiation dose reduction, the following was used: automated exposure control, adjustment of mA and/or kV according to patient size. COMPARISON: None. FINDINGS: Image quality: Diagnostic. CSF spaces: Basal cisterns are patent. No extra-axial fluid collections. Ventricles are normal in size and shape. Brain: No midline shift. No intracranial masses or hemorrhage. Mccoy-white matter interface is normal. Skull and face: Calvarium and visualized facial bones are intact, without suspicious lesions. Sinuses: Visualized sinuses and mastoids are clear. IMPRESSION: No acute intracranial pathology. Dictated by: Baljit Cleveland M.D. on 05/01/2023 at 20:22 Extremity x-ray #1: Radiologist's Impression: PROCEDURE: XR SHOULDER LT MIN 2V INDICATIONS: pain fall TECHNIQUE: To views of the shoulder were acquired. COMPARISON: None. FINDINGS: Bones: There is a moderately comminuted impacted and displaced set of fractures involving the left humeral head and neck, with displacement medially of the proximal humeral metadiaphyseal junction in relationship to the humeral head and neck which is mildly displaced laterally.. No suspicious bony lesions. Visualized ribs appear intact. Soft tissues: No suspicious soft tissue calcifications. Note is made of a moderate-sized hiatal hernia behind the heart. IMPRESSION: Displaced and comminuted humeral head/neck junction fracture as discussed, moderate-sized retrocardiac hiatal hernia. Dictated by: Baljit Cleveland M.D. on 05/01/2023 at 20:16 Approved by: Baljit Cleveland M.D. on 05/01/2023 at 20:18 CT UE: Radiologist's Impression: PROCEDURE: CT UE LT WO CON INDICATIONS: humeral head TECHNIQUE: Noncontrast 1-1.5 mm thick sections acquired from the acromioclavicular joint to the inferior scapula, with coronal and sagittal reformatting. COMPARISON: [facility], CR, XR SHOULDER LT MIN 2V, 05/01/2023, 19:49. FINDINGS: Image quality: Excellent. Bones: There is a comminuted impacted fracture involving the humeral head/neck junction, but the articular surface of the humeral head at the glenoid fossa appears intact. The fracture planes extend through the lower 2/3 of the humeral head and into the humeral neck. The greater and lesser tuberosities appear involved by fracture, with at least 3 displaced fracture fragments.. Soft tissues: No hematoma found. IMPRESSION: Neer classification type 4 fracture involving the left humeral head and neck with impaction and displacement as discussed. The articular surface of the humeral head at the glenoid fossa is intact. Dictated by: Baljit Cleveland M.D. on 05/01/2023 at 21:59 MDM Narrative Medical decision making narrative: Patient is a 62-year-old female who presents today after fall down 4-5 stairs complaining of left shoulder pain. She is some mild neck pain as well no obvious head injury platelet anticoagulation medication. Imaging reviewed she does have a comminuted displaced humeral head fracture 20:50 Dr. Singh updated on patient's symptoms test results has reviewed imaging. Recommend dedicated upper extremity CT to help determine surgical approach. Patient was given fentanyl prior to arrival and Toradol in the ED. she reports that hydroxyzine helps with the nausea coming from opiates. She is given hydroxyzine fentanyl and [place] seems to help. She is put in a sling which also helps pain. I have called and spoken to her an updated him on results and orthopedic recommendations. He understands and will be sure she follows up Discharge Plan Departure Patient Disposition: Home Clinical Impression: Closed fracture of head of left humerus Instructions: DI for Shoulder Fracture Activity Restrictions/Additional Instructions: *You have been diagnosed with left humeral head fracture *What to do: At this time keep arm in sling at all times. May need to sleep at an incline to help with pain. You will likely need surgery. You will need to follow-up with orthopedics *Continue to take medications as directed Hydroxyzine 25 mg every 6 hours if needed for nausea or vomiting [place] 1-2 tablets every 6 hours if needed for severe pain *Follow up with your primary care provider in 2-3 days or call [phone] Call orthopedics to schedule follow-up appointment, Dr. Singh is aware *Return to ER if you should have increasing pain numbness tingling weakness or any new, worsening or concerning symptoms CONTROLLED SUBSTANCE DISCHARGE (Narcotoic/benzodiazepine/Flexeril/Phenergan) 1. You have been prescribed narcotic medications, it does have acetaminophen/Tylenol/paracetamol in it, DO NOT TAKE MORE THAN 4,00mg in 24 hours of Tylenol. TRAMADOL DOES NOT CONTAIN TYLENOL 2. Please understand that we cannot provide further refills of narcotics, benzodiazepines or controlled substances through the ED and her pain management will need to be through your provider. 3. While on these medications you cannot drive or operate heavy machinery. 4. You cannot sign legal documents or perform any duties such as this. 5. As long as you're taking opiate pain medications he should also be taking a stool softener such as Colace, Dulcolax, MiraLAX or prune juice, to help avoid constipation. Prescriptions: New hydrocodone-acetaminophen 5-325 mg tablet 1 tab PO Q6H PRN (Reason: pain) Qty: 20 0RF hydroxyzine HCl 25 mg tablet 25 mg PO QID PRN (Reason: nausea and vomiting) Qty: 30 0RF No Action multivitamin [Multiple Vitamins] 1 EACH tablet 1 tab PO QDAY Qty: 0 bupropion HCl 100 mg tablet sustained-release 12 hr 100 mg PO DAILY Qty: 90 1RF pravastatin 20 mg tablet 20 mg PO BEDTIME Qty: 90 3RF Rx Instructions: DUE FOR APPT IN APR 2023 trazodone 100 mg tablet 100 mg PO BEDTIME PRN (Reason: insomnia) Qty: 90 1RF Rx Instructions: Take 0.5 - 1.5 tabs at bedtime progesterone micronized 100 mg capsule 100 mg PO DAILY Patient Comments: take 1 capsule by mouth every evening cholecalciferol (vitamin D3) 25 mcg (1,000 unit) capsule 25 mcg PO DAILY fgcjxno-klvt-ihbfu-oreg-capryl PO calcium carb,lactat-vitamin D3 PO (DME) oxygen-air delivery systems [Horizon Nasal Cpap System] .Route propranolol 10 mg tablet 10 mg PO DAILY Qty: 90 3RF omega-3 fatty acids 500 mg capsule 500 mg PO DAILY mecobalamin (vitamin B12) 5,000 mcg tablet,disintegrating PO hydroeye EYE-BOTH DAILY estrogen topical DAILY Referrals: [facility] [Provider Group] Jhonatan Chacon DO [Primary Care Provider] - Stand Alone Forms: Patient Portal/API
[2023-05-01] MEDS: KETOROLAC 30 MG/ML VIAL 15 MG IV (20:19)
[2023-05-01] MEDS: hydrOXYzine pamoate 25 MG CAPSULE 50 MG PO (20:45)
[2023-05-01] MEDS: fentaNYL 100 MCG/2 ML INJ 25 MCG IV (20:46)
--- NOTE | 2023-05-01 20:52 | DI.CT.S_ITS ---
PROCEDURE: CT UE LT WO CON INDICATIONS: humeral head TECHNIQUE: Noncontrast 1-1.5 mm thick sections acquired from the acromioclavicular joint to the inferior scapula, with coronal and sagittal reformatting. COMPARISON: [facility], CR, XR SHOULDER LT MIN 2V, 05/01/2023, 19:49. FINDINGS: Image quality: Excellent. Bones: There is a comminuted impacted fracture involving the humeral head/neck junction, but the articular surface of the humeral head at the glenoid fossa appears intact. The fracture planes extend through the lower 2/3 of the humeral head and into the humeral neck. The greater and lesser tuberosities appear involved by fracture, with at least 3 displaced fracture fragments.. Soft tissues: No hematoma found. IMPRESSION: Neer classification type 4 fracture involving the left humeral head and neck with impaction and displacement as discussed. The articular surface of the humeral head at the glenoid fossa is intact. Dictated by: Baljit Cleveland M.D. on 05/01/2023 at 21:59 Approved by: Baljit Cleveland M.D. on 05/01/2023 at 22:03
[2023-05-01] MEDS: HYDROCODONE/ACET 5/325 TABLET 1 TAB PO (20:57)
--- NOTE | 2023-05-01 22:13 | PC.NURSE ---
CHAIR LIFT OPERATOR note: Patient's friend, Dimitry Perez, was waiting outside the department. Friend asked if she could see patient as I was bringing a wheelchair into department. Told friend I would ask and to wait outside. Dimitry followed me into the department. She's just right in this room. Had to ask patient as friend was in the department. Patient agreed to allow friend in.
[2023-05-01] MEDS: HYDROCODONE/ACET 5/325 PREPACK 1 BOTTLE MISC (22:16)
[2023-05-01] MEDS: hydrOXYzine pamoate 25 MG CAPSULE PO (22:16)
== END 2023-05-01 22:19 | disposition home or self-care (01) ==
PROVIDERS: Emergency Provider Emergency Medicine; Family Provider Internal Medicine; PCP Family Medicine
DX: S42.302A Unspecified fracture of shaft of humerus, left arm, initial encounter for closed fracture (principal); M54.2 Cervicalgia; S09.90XA Unspecified injury of head, initial encounter; S29.9XXA Unspecified injury of thorax, initial encounter; R11.2 Nausea with vomiting, unspecified; W10.9XXA Fall (on) (from) unspecified stairs and steps, initial encounter
CPT/HCPCS: 70450; 71045; 72125; 73030; 73200; 96374; 96375; 99284; J1885; J3010

== ENCOUNTER → 2023-05-06 11:31 | Outpatient (CLI) | payer OTHER, SELFPAY ==
[2022-08-11 16:48] VITALS: BMI 29.2
--- NOTE | 2023-05-06 | DI.CT.S_ITS ---
PROCEDURE: CT UE LT WO CON INDICATIONS: CLOSED DISPLACED FX OF PROXIMAL END OF LEFT HUMERUS TECHNIQUE: Noncontrast 1-1.5 mm thick sections acquired from the acromioclavicular joint to the inferior scapula, with coronal and sagittal reformatting. COMPARISON: [facility], CT, CT UE LT WO CON, 05/01/2023, 21:16. FINDINGS: Image quality: Excellent. Bones: Comminuted and impacted proximal humeral fracture is again seen with fracture lines extending to greater and lesser tuberosities. There is up to 2.4 cm impaction at fracture site. Superior and laterally displaced greater tuberosity fragments and anterior medially displaced lesser tuberosity fragments are noted. No other fracture or dislocation. Nvqo-ax-qvxwvbgm acromioclavicular joint and glenohumeral joint osteoarthritic changes are seen. No suspicious bony lesions. The visualized left upper to mid ribs are intact. Soft tissues: There is moderate joint effusion which may indicate hemarthrosis. No calcified intra-articular loose bodies. No gross full-thickness rotator cuff tendon rupture. No significant rotator cuff muscle atrophy is seen on sagittal images. No abnormal soft tissue calcifications. IMPRESSION: 1. Acute comminuted, impacted and displaced fracture involving left proximal humerus and humeral head as above. No other fracture or dislocation. 2. Moderate to large hemarthrosis. No calcified intra-articular loose bodies. 3. Mild to moderate acromioclavicular joint and glenohumeral joint osteoarthritis. 4. No gross full-thickness rotator cuff tendon rupture or significant rotator cuff muscle atrophy. Dictated by: Robinson Mo M.D. on 05/06/2023 at 14:56 Approved by: Robinson Mo M.D. on 05/06/2023 at 14:59
[2023-05-06 12:44] LABS: Add Manual Diff / Slide Review NO; Appearance Urine UA CLEAR; Basophils Absolute Auto 0 /uL (0-100); Basophils Percent Auto 0.1 % (0-2); Bilirubin Urine UA NEGATIVE (NEGATIVE); Color Urine UA YELLOW; Eosinophils Absolute Auto 100 /uL (0-450); Eosinophils Percent Auto 1.6 % (2-4); Glucose Urine UA NEGATIVE (Negative); Hematocrit 31.7 % (36-46); Hemoglobin 10.6 g/dL (12.0-16.0); Ketones Urine UA NEGATIVE (NEGATIVE); Leukocyte Esterase Urine UA TRACE (NEGATIVE); Lymphocytes Absolute Auto 2000 /uL (1100-4500); Lymphocytes Percent Auto 26.4 % (25-40); Mean Corpuscular HGB Conc 33.5 % (30-36); Mean Corpuscular Hemoglobin 29.5 PG (26-34); Mean Corpuscular Volume 88.2 fL (80-100); Monocytes Absolute Auto 800 /uL (0-900); Monocytes Percent Auto 10.5 % (3-14); Neutrophils Absolute Auto 4600 /uL (1500-7000); Neutrophils Percent Auto 61.4 % (50-75); Nitrite Urine UA NEGATIVE (Negative); Occult Blood Urine UA NEGATIVE (Negative); Platelet Count 299 X10^3/uL (150-400); Protein Urine UA NEGATIVE (Negative); Red Cell Distribution Width 13.1 % (11.6-14.8); Specific Gravity Urine UA 1.015 (1.000-1.035); Urobilinogen Urine UA 0.2 E.U./dL (0.2); White Blood Cell Count 7.4 X10^3/uL (4.5-11.0)
[2023-05-06 12:47] LABS: pH Urine UA 5.5 (4.5-8.0)
[2023-05-06 12:51] LABS: Bacteria Urine Occasional (0-1); Culture Indicated Urine Specimen Cultured; Mucus Urine 1+ (Negative); RBC Urine None Seen (0-5/HPF); Squamous Epithelial Cell Urine 0-1 /HPF (0-5/HPF); Urine Volume 10mL (spun); WBC Urine 1-5/HPF (0-5/HPF)
[2023-05-06 13:03] LABS: BUN Creatinine Ratio 20.3 (6-22); Blood Urea Nitrogen 15 mg/dL (7-17); Calcium 8.9 mg/dL (8.4-10.2); Carbon Dioxide 28 mmol/L (22-32); Chloride 103 mmol/L (98-107); Estimated Glomerular Filt Rate > 60 mL/min (>60); Glucose 105 mg/dL (80-110); HEMOLYSIS < 15 (0-50); Potassium 4.1 mmol/L (3.4-5.1); Sodium 138 mmol/L (137-145)
== END ==
PROVIDERS: PCP Family Medicine; Referring Provider Orthopaedic Surgery; Visit Provider Orthopaedic Surgery
DX: Z01.818 Encounter for other preprocedural examination (principal); Z01.812 Encounter for preprocedural laboratory examination; S42.252A Displaced fracture of greater tuberosity of left humerus, initial encounter for closed fracture; S42.262A Displaced fracture of lesser tuberosity of left humerus, initial encounter for closed fracture; M25.012 Hemarthrosis, left shoulder; M19.012 Primary osteoarthritis, left shoulder; N39.0 Urinary tract infection, site not specified; X58.XXXA Exposure to other specified factors, initial encounter
CPT/HCPCS: 36415; 73200; 80048; 81001; 85025; 87086; 93005

== ENCOUNTER → 2023-07-08 14:34 | Outpatient (CLI) | payer MEDICARE, SELFPAY ==
[2022-08-11 16:48] VITALS: BMI 29.2
[2023-07-08 15:12] LABS: Add Manual Diff / Slide Review NO; Basophils Absolute Auto 0 /uL (0-100); Basophils Percent Auto 0.3 % (0-2); Eosinophils Absolute Auto 100 /uL (0-450); Eosinophils Percent Auto 1.3 % (2-4); Hematocrit 34.5 % (36-46); Hemoglobin 11.2 g/dL (12.0-16.0); Lymphocytes Absolute Auto 2300 /uL (1100-4500); Lymphocytes Percent Auto 29.2 % (25-40); Mean Corpuscular HGB Conc 32.4 % (30-36); Mean Corpuscular Hemoglobin 26.5 PG (26-34); Mean Corpuscular Volume 82.1 fL (80-100); Monocytes Absolute Auto 600 /uL (0-900); Monocytes Percent Auto 7.3 % (3-14); Neutrophils Absolute Auto 4900 /uL (1500-7000); Neutrophils Percent Auto 61.9 % (50-75); Platelet Count 356 X10^3/uL (150-400); Red Cell Distribution Width 15.6 % (11.6-14.8)
[2023-07-08 15:40] LABS: C-Reactive Protein Quant 2.5 mg/dL (<1.0)
[2023-07-08 15:45] LABS: Erythrocyte Sedimentation Rate 13 MM/HR (0-20)
== END ==
PROVIDERS: PCP Family Medicine; Referring Provider Orthopaedic Surgery; Visit Provider Orthopaedic Surgery
DX: D70.9 Neutropenia, unspecified (principal); Z96.612 Presence of left artificial shoulder joint; F43.20 Adjustment disorder, unspecified; R79.82 Elevated C-reactive protein (CRP)
CPT/HCPCS: 36415; 85025; 85651; 86140

== ENCOUNTER → 2023-08-03 14:27 | Outpatient (CLI) | payer MEDICARE, SELFPAY ==
[2022-08-11 16:48] VITALS: BMI 29.2
[2023-08-03 15:23] LABS: Add Manual Diff / Slide Review NO; Basophils Absolute Auto 0 /uL (0-100); Basophils Percent Auto 0.2 % (0-2); Eosinophils Absolute Auto 100 /uL (0-450); Eosinophils Percent Auto 1.8 % (2-4); Hematocrit 35.5 % (36-46); Hemoglobin 11.5 g/dL (12.0-16.0); Lymphocytes Absolute Auto 2000 /uL (1100-4500); Lymphocytes Percent Auto 34.9 % (25-40); Mean Corpuscular HGB Conc 32.4 % (30-36); Mean Corpuscular Hemoglobin 26.4 PG (26-34); Mean Corpuscular Volume 81.3 fL (80-100); Monocytes Absolute Auto 500 /uL (0-900); Monocytes Percent Auto 8.7 % (3-14); Neutrophils Absolute Auto 3200 /uL (1500-7000); Neutrophils Percent Auto 54.4 % (50-75); Platelet Count 333 X10^3/uL (150-400); Red Blood Cell Count 4.37 X10^6/uL (4.0-5.2); Red Cell Distribution Width 17.5 % (11.6-14.8); White Blood Cell Count 5.8 X10^3/uL (4.5-11.0)
[2023-08-03 15:48] LABS: Erythrocyte Sedimentation Rate 7 MM/HR (0-20)
[2023-08-03 16:11] LABS: C-Reactive Protein Quant 0.6 mg/dL (<1.0)
== END ==
PROVIDERS: PCP Family Medicine; Referring Provider Orthopaedic Surgery; Visit Provider Orthopaedic Surgery
DX: Z96.612 Presence of left artificial shoulder joint (principal)
CPT/HCPCS: 36415; 85025; 85651; 86140

== ENCOUNTER → 2023-08-05 10:25 | Outpatient (CLI) | payer MEDICARE, OTHER, SELFPAY ==
[2022-08-11 16:48] VITALS: BMI 29.2
--- NOTE | 2023-08-05 11:05 | DI.RAD.S_ITS ---
PROCEDURE: XR HIP W PEL IF DONE RT 2V INDICATIONS: Right hip pain TECHNIQUE: AP pelvis with lateral view(s) of the right hip(s). COMPARISON: [facility], , XR HIP W PEL IF DONE RT 2V, 11/13/2021, 11:34. FINDINGS: Bones: Similar moderate right hip and mild left hip degenerative changes. Pubic symphysis and lumbosacral degenerative changes also seen. No acute displaced fracture The lucency in the right superior acetabulum may represent a degenerative geode. Soft tissues: No suspicious calcifications. IMPRESSION: Moderate right and mild left hip degenerative changes. If there is high concern for further derangement, consider MRI evaluation. Dictated by: Toan Cloud M.D. on 08/08/2023 at 9:33 Approved by: Toan Cloud M.D. on 08/08/2023 at 9:35
[2023-08-05 12:55] LABS: Add Manual Diff / Slide Review NO; Basophils Absolute Auto 0 /uL (0-100); Basophils Percent Auto 0.2 % (0-2); Eosinophils Absolute Auto 100 /uL (0-450); Eosinophils Percent Auto 1.7 % (2-4); Hemoglobin 11.1 g/dL (12.0-16.0); Lymphocytes Absolute Auto 2300 /uL (1100-4500); Lymphocytes Percent Auto 33.7 % (25-40); Mean Corpuscular HGB Conc 32.7 % (30-36); Mean Corpuscular Hemoglobin 26.5 PG (26-34); Mean Corpuscular Volume 81.3 fL (80-100); Monocytes Absolute Auto 500 /uL (0-900); Monocytes Percent Auto 7.9 % (3-14); Neutrophils Absolute Auto 3900 /uL (1500-7000); Neutrophils Percent Auto 56.5 % (50-75); Platelet Count 322 X10^3/uL (150-400); Red Blood Cell Count 4.19 X10^6/uL (4.0-5.2); Red Cell Distribution Width 17.4 % (11.6-14.8); White Blood Cell Count 6.8 X10^3/uL (4.5-11.0)
[2023-08-05 13:27] LABS: HEMOLYSIS < 15 (0-50); Iron 46 ug/dL (37-170)
[2023-08-05 13:33] LABS: Alanine Aminotransferase 13 IU/L (<35); Albumin Globulin Ratio 1.7 (1.0-2.8); Alkaline Phosphatase 80 U/L (38-126); Aspartate Aminotransferase 20 IU/L (14-36); BUN Creatinine Ratio 19.2 (6-22); Bilirubin Total 0.5 mg/dL (0.2-1.3); Blood Urea Nitrogen 14 mg/dL (7-17); Calcium 8.9 mg/dL (8.4-10.2); Carbon Dioxide 28 mmol/L (22-32); Chloride 108 mmol/L (98-107); Cholesterol 193 mg/dL (140-199); Estimated Glomerular Filt Rate > 60 mL/min (>60); Globulin 2.4 g/dL (1.7-4.1); Glucose 93 mg/dL (80-110); HDL Cholesterol 71 mg/dL (40-60); HEMOLYSIS < 15 (0-50); LDL Cholesterol Calculated 103 mg/dL (<100); Potassium 4.5 mmol/L (3.4-5.1); Sodium 138 mmol/L (137-145); Total Protein 6.4 g/dL (6.3-8.2); Triglycerides 96 mg/dL (35-150)
[2023-08-05 13:44] LABS: Percent Iron Saturation 12 % (15-50); Total Iron Binding Capacity 370 ug/dL (265-497); Transferrin 289 mg/dL (206-381)
[2023-08-05 14:15] LABS: Vitamin B12 422 pg/mL (239-931)
== END ==
PROVIDERS: PCP Family Medicine; Referring Provider Family Medicine; Visit Provider Family Medicine
DX: E78.5 Hyperlipidemia, unspecified (principal); D64.9 Anemia, unspecified; R03.0 Elevated blood-pressure reading, without diagnosis of hypertension; M25.551 Pain in right hip
CPT/HCPCS: 36415; 73502; 80053; 80061; 82607; 83540; 83550; 85025

== ENCOUNTER → 2023-09-04 08:41 | Outpatient (CLI) | payer MEDICARE, OTHER, SELFPAY ==
[2022-08-11 16:48] VITALS: BMI 29.2
--- NOTE | 2023-09-04 08:43 | DI.MRI.S_ITS ---
PROCEDURE: MR HIP RT WO CON INDICATIONS: chronic R hip pain TECHNIQUE: Noncontrast coronal T1 spin echo and STIR through the bony pelvis. Coronal and axial T2 fast spin echo with fat saturation, sagittal T1 spin echo, and oblique axial T2 fast spin echo with fat saturation through the hip. COMPARISON: [facility], CR, XR HIP W PEL IF DONE RT 2V, 08/05/2023, 10:24. FINDINGS: Image quality: Diagnostic Bones: Pelvic ring: Intact Femoral head and neck: No fracture. No osteonecrosis. Ligamentum teres: Intact. Lumbar spine and sacrum: Degenerative changes partially visualized Tendons: Abductors: Mild insertional tendinopathy Adductors and rectus abdominis: Mild degenerative changes of the pubic symphysis, without significant edema acutely IT band: Intact. Iliopsoas: Mild insertional tendinopathy. Hamstrings: Multiple small partial tears at the origin, with tendinopathy. Rectus femoris: Intact. Sartorius: Intact. Joint: Joint space: Trace effusion. There is a subchondral cyst in the superior acetabulum. This is likely degenerative. Labrum: On this non-arthrographic study, there is a suspected anterior superior labral tear. Cartilage: Moderate cartilage thinning, fissuring, and heterogeneity. Soft tissues: Quadratus femoris: No edema or atrophy. Piriformis: Symmetric. Intrapelvic structures: Not well evaluated. No pathologic fluid, aneurysm, lymphadenopathy, or suspicious mass. No bowel obstruction. Bladder is unremarkable. IMPRESSION: Moderate right hip degenerative changes, with a prominent subchondral cyst at the superior acetabulum. Trace effusion. Suspected anterior superior labral tear Tendinopathy involving the abductor insertions, iliopsoas, and hamstring origins. Possible small partial tears at the hamstrings origins. Approved by: Toan Cloud M.D. on 09/06/2023 at 12:04
== END ==
PROVIDERS: PCP Family Medicine; Referring Provider Family Medicine; Visit Provider Family Medicine
DX: M25.551 Pain in right hip (principal)
CPT/HCPCS: 73721

== ENCOUNTER → 2023-11-02 09:19 | Outpatient (CLI) | payer MEDICARE, OTHER, SELFPAY ==
[2022-08-11 16:48] VITALS: BMI 29.2
--- NOTE | 2023-11-02 | DI.MG.S_ITS ---
BILATERAL DIGITAL DIAGNOSTIC MAMMOGRAM 3D/2D: 11/02/2023 CLINICAL: Left breast pain. Comparison is made to exams dated: 12/27/2021 mammogram, 03/26/2020 mammogram, and 10/05/2018 mammogram - [facility]. There are scattered areas of fibroglandular density in both breasts (category b / 25%-50% glandular tissue). No significant masses, calcifications, or other findings are seen in either breast. Specifically, no finding to explain the patient's pain. Mammograms are otherwise stable. IMPRESSION: INCOMPLETE: NEEDS ADDITIONAL IMAGING EVALUATION Bilateral mammograms are stable. There is no abnormality seen in the left breast to correspond with the pain in the lower outer quadrant. Ultrasound is recommended for full evaluation of this area. This was performed immediately following this exam. Based on the Tyrer Cuzick model (a risk assessment model) the patient's lifetime risk is 8.5% and her 10 year risk is 4.1%. According to the ACR, ACS, and NCCN guidelines, an annual breast MRI exam along with mammogram is recommended if the patient's lifetime risk is 20% or greater. This exam was interpreted at Station ID: [id number]. NOTE: For mammograms, a report in lay terms will be sent to the patient. Approximately 15% of breast malignancies will not be visualized mammographically. In the management of a palpable breast mass, a negative mammogram must not discourage biopsy of a clinically suspicious lesion. Electronically Signed By: Susy connelly/:11/02/2023 10:22:34 ACR BI-RADS Category 0: Incomplete [id number]
--- NOTE | 2023-11-02 09:21 | DI.US.S_ITS ---
LIMITED ULTRASOUND OF LEFT BREAST AND AXILLA: 11/02/2023 CLINICAL: Intermittent / focal pain in left breast. Comparison is made to exams dated: 11/02/2023 mammogram, 12/27/2021 mammogram, 03/26/2020 mammogram, 10/05/2018 mammogram, 04/23/2017 mammogram - [facility], and 03/17/2013 mammogram - [facility]. Real-time ultrasound of the left breast 3-6 o'clock, and axilla regions was performed. Mccoy scale images of the real-time examination were reviewed. No significant abnormalities were seen sonographically in the left breast. Specifically, no finding to explain the patient's pain. IMPRESSION: NEGATIVE There is no sonographic correlate to the patient's left lower outer quadrant pain and no evidence of malignancy. Return to annual mammogram screening schedule is recommended. Findings and recommendations were conveyed to the patient at time of exam. This exam was interpreted at Station ID: [id number]. Electronically Signed By: Susy connelly/:11/02/2023 10:54:06 letter sent: Normal Exam Ultrasound BI-RADS: 1 Negative
== END ==
PROVIDERS: PCP Family Medicine; Referring Provider Family Medicine; Visit Provider Family Medicine
DX: R92.2 Inconclusive mammogram (principal); R92.323 Mammographic fibroglandular density, bilateral breasts; N64.4 Mastodynia
CPT/HCPCS: 76642; 77066; G0279

== ENCOUNTER → 2023-11-29 12:00 | Outpatient (CLI) | payer MEDICARE, OTHER, SELFPAY ==
[2022-08-11 16:48] VITALS: BMI 29.2
[2023-11-29 12:54] LABS: Add Manual Diff / Slide Review NO; Basophils Absolute Auto 0 /uL (0-100); Basophils Percent Auto 0.1 % (0-2); Eosinophils Absolute Auto 0 /uL (0-450); Eosinophils Percent Auto 0.7 % (2-4); Hematocrit 38.3 % (36-46); Hemoglobin 12.9 g/dL (12.0-16.0); Lymphocytes Absolute Auto 2300 /uL (1100-4500); Lymphocytes Percent Auto 33.8 % (25-40); Mean Corpuscular HGB Conc 33.7 % (30-36); Mean Corpuscular Volume 86.2 fL (80-100); Monocytes Absolute Auto 600 /uL (0-900); Monocytes Percent Auto 8.5 % (3-14); Neutrophils Absolute Auto 3900 /uL (1500-7000); Neutrophils Percent Auto 56.9 % (50-75); Platelet Count 287 X10^3/uL (150-400); Red Blood Cell Count 4.44 X10^6/uL (4.0-5.2); Red Cell Distribution Width 14.9 % (11.6-14.8); White Blood Cell Count 6.8 X10^3/uL (4.5-11.0)
--- NOTE | 2023-11-29 12:55 | EKG_ITS ---
[address] [address] Test Date: 2023-11-29 Pat Name: Germaine Cleveland Department: [facility] Room: Gender: Female Or Rn: ALIYA : 1960 Requested By: Order Number: [id number] Reading MD: Adi Castañeda Measurements Intervals [place] Rate: 61 P: 11 CO: 142 QRS: 19 QRSD: 76 T: -33 QT: 420 QTc: 422 Interpretive Statements Normal sinus rhythm Nonspecific T wave abnormality Electronically Signed On 11-29-2023 16:54:51 PDT by Adi Castañeda
[2023-11-29 13:10] LABS: Hemoglobin A1C% w Est Avg Glu 5.3 % (4.0-6.0)
[2023-11-29 13:28] LABS: Albumin 4.2 g/dL (3.5-5.0); BUN Creatinine Ratio 18.9 (6-22); Blood Urea Nitrogen 14 mg/dL (7-17); Calcium 9.2 mg/dL (8.4-10.2); Carbon Dioxide 24 mmol/L (22-32); Chloride 105 mmol/L (98-107); Estimated Glomerular Filt Rate > 60 mL/min (>60); Glucose 97 mg/dL (80-110); HEMOLYSIS < 15 (0-50); Potassium 4.1 mmol/L (3.4-5.1); Sodium 137 mmol/L (137-145)
[2023-11-29 16:23] LABS: Vitamin D 25 Hydroxy (D3) 20.7 ng/mL (30.0-100.0)
== END ==
LOC: LAB 12:02
PROVIDERS: PCP Family Medicine; Referring Provider Orthopaedic Surgery Adult Reconstructive Orthopaedic Surgery; Visit Provider Orthopaedic Surgery Adult Reconstructive Orthopaedic Surgery
DX: Z01.818 Encounter for other preprocedural examination (principal); R73.9 Hyperglycemia, unspecified; E55.9 Vitamin D deficiency, unspecified; R77.0 Abnormality of albumin; Z01.812 Encounter for preprocedural laboratory examination
CPT/HCPCS: 36415; 80048; 82040; 82306; 83036; 84134; 85025; 93005

== ENCOUNTER 2024-03-17 08:43 | Day surgery (SDC) | payer MEDICARE, OTHER, SELFPAY ==
[2022-08-11 16:48] VITALS: BMI 29.2
[2024-03-06 08:18] VITALS: BMI 29.8
[2024-03-17] VITALS (15 sets, daily range): BP systolic 92–128; BP diastolic 50–77; PULSE 56–73; RESP 12–18; TEMP 35.7–37.2; O2SAT 93–99; BMI 29.8; BMI 30.2
--- NOTE | 2024-03-17 | DI.RAD.S_ITS ---
PROCEDURE: XR HIP W PEL IF DONE RT 2V INDICATIONS: TOTAL HIP TECHNIQUE: Low resolution intraoperative fluoroscopic spot films were obtained COMPARISON: [facility], [place], XR HIP W PEL IF DONE RT 2V, 08/05/2023, 10:24. FINDINGS: Intraoperative fluoroscopic spot films show right hip arthroplasty in progress IMPRESSION: Fluoroscopic guidance Approved by: Eddie Templeton M.D. on 03/17/2024 at 19:01
--- NOTE | 2024-03-17 07:24 | DI.RAD.S_ITS ---
PROCEDURE: XR HIP W PEL IF DONE RT 2V INDICATIONS: NOEL TECHNIQUE: 2 view(s) of the hip acquired. COMPARISON: [facility], [place], XR HIP W PEL IF DONE RT 2V, 03/17/2024, 13:10. [facility], [place], XR HIP W PEL IF DONE RT 2V, 08/05/2023, 10:24. FINDINGS: Bones: Patient is status post right hip arthroplasty, with hardware components in expected positions. The hip joint appears congruent. The visualized bony structures appear intact. Soft tissues: Overlying postoperative changes are noted. No suspicious soft tissue densities. IMPRESSION: Expected post-operative appearance of a hip arthroplasty. Dictated by: Juancarlos Puente M.D. on 03/17/2024 at 14:52 Approved by: Juancarlos Puente M.D. on 03/17/2024 at 14:53
[2024-03-17] MEDS: LACTATED RINGERS 1,000 ML 84 ML IV ×2 (09:24→14:29)
[2024-03-17] MEDS: ACETAMINOPHEN 325 MG TABLET 975 MG PO (09:25)
[2024-03-17] MEDS: MELOXICAM 7.5 MG TABLET 15 MG PO (09:25)
[2024-03-17] MEDS: SCOPOLAMINE 1 PATCH TOP (09:52)
[2024-03-17] MEDS: GENTAMICIN 360 MG in SODIUM CHLORIDE 0.9% 100 ML 109 MG IV (11:35)
[2024-03-17] MEDS: TRANEXAMIC ACID 1,000 MG VIAL 2000 MG INJ ×2 (12:00→13:31)
--- NOTE | 2024-03-17 12:08 | SUR.OPER ---
Supine on padded [place] table with bilateral legs secured in padded positioning boots and suspended in positioning spars, operative leg in traction per surgeon. Head on one pillow. Arm on non-operative side secured on padded armboard <90 degrees abduction. Arm on operative side padded and resting across chest then secured with tape over sheet. Padded perineal post in place per surgeon.
[2024-03-17] MEDS: CEFAZOLIN 2 GM/100 ML PREMIX 100 ML IV ×2 (12:37→20:57)
[2024-03-17] MEDS: ROPIVACAINE/EPI/CLONIDINE/KET 50 ML SYRINGE INJ (13:28)
--- NOTE | 2024-03-17 13:37 | P.OP_ITS ---
Operative Date/Time/Diagnoses Date of procedure: 03/17/24 Pre-op diagnosis: Right hip osteoarthritis Post-op diagnosis: same Procedure & Clinicians Procedure: 1. Right total hip arthroplasty (88362) 2. Fixation of right proximal femur calcar fracture (63173) Same procedure as scheduled: Yes Surgeon: Eddie Sandy Supervisor Twisting Department: Linda Del Toro Anesthesia Type: Spinal, Sedation and Local Operative Notes Estimated Blood Loss (mL): 250 Procedure in detail: Right Uncemented Direct Anterior Depuy Total Hip Arthroplasty: Implants: * Iuka Gription size 52 cup? * Actis femoral stem size 4 high offset? * 36 mm +8.5 ceramic femoral head? Procedure Summary: This 63-year-old female patient sustained a calcar fracture during the broaching process. I removed the broach, inspected the fracture site, found that it did not propagate past the lesser trochanter, placed a calcar cable and concluded with broaching. She had been templated for significantly smaller implants on both the acetabular and femoral sides, which I attribute to likely and magnification error on her preoperative templating films. She was initially trialed with a +1.5 head which was significantly unstable so I upsized to a +5 head and eventually a +8.5 head. The +8.5 head was stable with a standard offset but appeared to have reduced offset compared to the preoperative radiograph so I transitioned to a high offset which appeared to better restore her [place] offset radiographically. Stability of the fracture site was tested vigorously following stem insertion and there was no propagation passed the distal extent of the cable and no mobility of the fracture underneath the stem. She will be weight-bearing as tolerated Procedure in Detail: This patient was seen preoperatively and evaluated for hip pain which was refractory to numerous nonoperative treatment modalities. Their hip pain correlated with radiographic changes demonstrating significant degeneration in the hip joint. The risks and benefits of continued nonoperative management versus operative management were discussed at length and all of the patient?s questions were answered. Additional educational materials providing further d etails beyond our discussion in clinic were provided via a publicly available patient education video which included the incidence of medical complications associated with total hip arthroplasty, reasons for revision following total hip arthroplasty, and patient satisfaction rates following total hip arthroplasty. That video can be accessed at [email or web address] . With this understanding of the risks inherent to the procedure, the patient elected to move forward with operative management. Following preoperative optimization, the patient was scheduled for surgery. The patient was met in the preoperative holding area the day of the procedure and all questions were answered. The patient?s nares were swabbed with betadine in order to decolonize them from MRSA. Informed consent was signed and the right limb was marked with indelible ink.? The patient was brought back to the operating room where anesthesia was induced. The patient was transferred to the [place] table and all bony prominences were padded. The operative site was prepped and draped in the usual sterile fashion. Prior to incision, tranexamic acid and cefazolin were administered. Operative templating images were displayed demonstrating the anticipated implant sizes and correct operative extremity. A timeout procedure was performed verifying the patient?s identity, medical comorbidities, allergies, relevant medications, anesthesia type and the surgical plan. All present were in agreement. The assistance of a physician chef's assistant was required for positioning, room setup, soft tissue retraction and wound closure. Without this assistance, the procedure would have been significantly more challenging and time consuming.?? A direct anterior approach to the hip was utilized. This was performed with a longitudinal incision through a Heuter interval. The incision was planned 2 cm distal and 2 cm lateral to the ASIS extending towards the lateral patella, in line with the muscle body of the TFL. Following incision, the subcutaneous tissue was dissected while taking care to avoid injury to the lateral femoral cutaneous nerve. The fascia overlying the TFL was identified by dissecting off the overlying fat and identifying perforating vessels to the TFL. The TFL fascia was incised and dissected away from the medial border of the TFL. A cobra retractor was placed over the superior femoral neck between the abductors and the hip capsule and used to reflect the TFL laterally. A [place] self-retainer was then placed in the distal aspect of the wound between the TFL and the rectus femoris. This was tensioned to open up the direct anterior interval and the lateral circumflex vessels were identified and coagulated using electrocautery. The floor of the TFL fascia was incised, exposing the pericapsular fat overlying the hip capsule. A second cobra retractor was placed on the inferior femoral neck. A double-bent soft tissue retractor was placed on the anterior wall of the acetabulum and used to tension the reflected head of rectus femoris, which was then released in order to limit soft tissue tension. A capsulotomy was made in the midline of the anterior hip capsule in line with the femoral neck ending at the vastus tubercle. The double-bent retractor was removed in order to limit the amount of time that a soft tissue retractor remained on the anterior wall and protect the femoral nerve. Tag stitches were placed in the superior and inferior leaflets of the hip capsule. An Dennys soft tissue retractor was introduced over the tag stitches and tensioned in the interval between the rectus femoris and the TFL in order to retract and protect those muscles. The cobra retractors were replaced intracapsularly, with one over the superior neck in the pocket created by the base of the greater trochanter and the other on the femoral head. The capsulotomy was extended laterally to the base of the greater trochanter and medially to the lesser trochanter. This required externally rotating the hip. Once the lesser trochanter had been identified, a neck cut was planned according to measurements from preoperative templating. A ruler was cut at the length measured between the superior aspect of the lesser trochanter and the collar of the prosthesis. This line was extended towards the inferior aspect of the latera l cobra retractor to plan a cut which would leave minimal residual femoral neck laterally. The neck was cut at 60 degrees of external rotation along that line. A second cut was performed to remove a large napkin ring and facilitate head extraction. The napkin ring cut and femoral head were removed.?? A broad anterior wall retractor was placed between the labrum and the anterior capsule so that the anterior capsule would prevent capturing and pinching the femoral nerve anteriorly. An additional retractor was placed on the posterior wall. External rotation and traction were applied through the [place] table so that the cut surface of the femoral neck would not restrict access to the acetabulum. The labrum was excised sharply and the pulvinar was excised with electrocautery to limit bleeding from branches of the obturator artery. Acetabular reamers were selected based on preoperative templating and measurements of the excised femoral head. These were introduced into the acetabulum. Fluoroscopy was utilized to replicate a standing AP pelvis radiograph by centering over the pelvis, rotating until there was appropriate symmetry between the obturator foramen, and introducing caudal tilt to match the position of the pubic symphysis relative to the sacrococcygeal junction according to the patient?s anatomy. Fluoroscopy was utilized to ensure appropriate reaming depth. Once satisfied with the reaming depth corresponding to the preoperative template and the pinch fit between the columns, an appropriate sized acetabular cup was selected which would provide 1 mm of press-fit. This cup was introduced and manipulated until appropriate abduction and anteversion angles were obtained with careful attention to appropriate abduction and anteversion angles as evaluated by the position of the cup relative to the anterior and posterior gonzalez of the acetabulum and the AP fluoroscopy which recreated the patient?s standing radiograph. The cup was impacted into place. Peripheral osteophytes w ere removed. The acetabular liner was then placed with care to ensure locking of the locking mechanism.? Attention was then turned to the femur. All retractors were removed, traction was released, a retractor was placed in the interval between the hip capsule and the gluteus minimus, and the hip was externally rotated to 90 degrees. Traction was applied through the [place] table to tension the lateral capsule and this was released using electrocautery. Traction was released and a [place] hook was placed posteriorly around the proximal femur at the level of the vastus ridge. The table height was lowered in order to restrict the tension on the anterior structures during hip hyperextension to limit the risk of femoral nerve palsy. With traction off and the hip at 90 degrees of external rotation, the hip was hyperextended and adducted while manually elevating the femur away from the acetabulum with the [place] hook to ensure it would not be caught behind the greater trochanter. An asymmetric retractor was placed over the calcar and a broad double-pronged retractor was placed over the greater trochanter. The tag stitch capturing the lateral leaflet of the capsule was moved to the medial side, leaving the conjoined and piriformis tendons isolated in the face of the greater trochanter. The hip was externally rotated and elevated. A release of the conjoined tendon was not necessary in order to obtain adequate exposure for broaching. The canal was opened with an opening broach and a rasp was used to remove cancellous bone. A rongeur was used to remove the residual lateral bone at the base of the greater trochanter to avoid placing the stem in varus. The femur was then broached to the appropriate sized stem yielding good rotational fit and fill of the canal as well as appropriate version of the stem trial. Neck and head trials were placed, all retractors were removed and the hip was returned to neutral abduction and extension. I then reduced the hip. Initial trialing was performed with a size 4 broach, a standard offset neck and a +1.5 head. I initially manually externally rotated the hip and found that it dislocated so I transitioned to a +5 head. This also dislocated so I transitioned to a +8.5 head. This had appropriate stability with maximum external rotation. I then locked the hip in 45 degrees of external rotation and dropped it to the floor with traction off which demonstrated no instability. An AP pelvis fluoroscopic image matching the preoperative standing radiograph with both lesser trochanters visible and both hips in 40 degrees of external rotation demonstrated that leg length was appropriate but offset appeared to be diminished. AP and lateral hip fluoroscopic images were obtained to evaluate the broach size which demonstrated good canal fill. The hip was dislocated and I returned to the broaching position. Based on my evaluation during initial trialing I planned to transitioned to a high offset neck trial to evaluate offset with that. I made that transition and found that offset was more appropriate. The definitive stem was placed and the trunnion was cleaned and dried. I placed a ceramic head onto the trunnion and impacted it into place on the [place] taper.?? All retractors were removed and the hip was reduced. A dilute mixture of betadine and peroxide was used to bathe the soft tissues during final fluoroscopic assessment. Appropriate component positioning was confirmed on an AP pelvis radiograph with the operative and nonoperative legs in 40 degrees of external rotation, evaluating leg length and offset. Appropriate stem fill was evaluated on AP and lateral hip radiographs. No fractures were identified on these radiographs. There was no hip instability with maximum (115?) external rotation as well as a 45 degree drop test. The hip was copiously irrigated with pulse lavage. The capsule was closed with absorbable interrupted suture. The TFL fascia was closed with barbed suture while carefully protecting the lateral femoral cutaneous nerve from entrapment. A mixture of Ropivacaine, Epinephrine, Clonidine and Toradol was infiltrated throughout the soft tissues. The skin was closed with 2-0 and 3-0 sutures. Surgical glue was applied and a soft dressing was placed.??The sponge, instrument and needle counts were reported as being correct at the end of the case.??No obvious complications occurred. The patient was transferred from the [place] table back to a stretcher. The patient emerged from anesthesia without difficulty and was taken to the PACU in a stable condition.? Plan for aftercare: * Anterior hip precautions * Weightbearing as tolerated * Aspirin 81 twice per day for DVT prophylaxis * Anticipate discharge home tomorrow * Change into normal clothes upon arrival on the hospital floor * Mobilize in the halls as much as is logistically possible. If physical therapy is unavailable for mobilization, then patient should mobilize with nursing staff * Multimodal pain regimen with no IV opioids ordered * Apply ice machine to operative hip. Ensure that sufficient ice is in the chamber for the pad to remain cold * Follow up at [facility] in 2 weeks * Detailed postoperative instructions available at [email or web address]
[2024-03-17] MEDS: ONDANSETRON 4 MG/2 ML INJ IV ×2 (14:00→22:43)
[2024-03-17] MEDS: LACTATED RINGERS 1,000 ML 100 ML IV (15:05)
[2024-03-17] MEDS: ACETAMINOPHEN 325 MG TABLET 650 MG PO ×2 (15:36→21:03)
--- NOTE | 2024-03-17 16:15 | PT-IP ANOTE ---
checked on pt and pt still numb on her LE and not ready for PT. obtained PLOF and home set up. pt will inform her spouse to come in tomorrow at ~ 9 am for possible caregiver training. will f/u tomorrow.
[2024-03-17] MEDS: PROGESTERONE, MICRONIZED 100 MG CAPSULE PO (16:44)
[2024-03-17] MEDS: PRAVASTATIN 20 MG TABLET PO (16:44)
[2024-03-17] MEDS: HYDROMORPHONE 2 MG TABLET PO (16:45)
[2024-03-17] MEDS: DOCUSATE 100 MG CAPSULE PO (20:57)
[2024-03-17] MEDS: ASPIRIN EC 81 MG TABLET PO (20:57)
[2024-03-17] MEDS: PROPRANOLOL 10 MG TABLET PO (20:58)
[2024-03-17] MEDS: HYDROMORPHONE 2 MG TABLET 1 MG PO (21:15)
[2024-03-18] MEDS: HYDROMORPHONE 2 MG TABLET 1 MG PO ×2 (01:44→16:37)
[2024-03-18] MEDS: ONDANSETRON 4 MG/2 ML INJ IV ×3 (02:22→16:38)
[2024-03-18] MEDS: ACETAMINOPHEN 325 MG TABLET 650 MG PO ×2 (03:58→09:14)
[2024-03-18] MEDS: CEFAZOLIN 2 GM/100 ML PREMIX 100 ML IV (03:59)
[2024-03-18] MEDS: methocarbamoL 500 MG TABLET PO ×2 (04:28→14:04)
[2024-03-18 04:33] VITALS: BP 109/70; PULSE 65; O2SAT 95
[2024-03-18] MEDS: HYDROMORPHONE 2 MG TABLET PO (05:38)
[2024-03-18 05:39] LABS: Hematocrit 30.9 % (36-46); Hemoglobin 10.2 g/dL (12.0-16.0)
[2024-03-18 08:00] VITALS: BP 112/52; PULSE 63; RESP 18; TEMP 36.6; O2SAT 92
--- NOTE | 2024-03-18 09:00 | PT.IIE ---
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) History of right knee surgery Medical History (Last Updated 03/06/24 @ 08:47 by Tamika Meza, RN) Allergic reaction caused by a drug Allergies (~1996) Anemia (~2019) Anxiety (~2001) Borderline hypertension Cataracts, bilateral (~2016) Depression (~2001) Diverticulosis Encounter for pre-operative cardiovascular clearance Family history of colon cancer Foot pain (~1999) GI bleeding (~2019) Hyperlipidemia Iron deficiency anemia Knee pain Osteoarthritis (~1999) Osteopenia (~2009) Right hip pain Situational anxiety Tenosynovitis Vertigo Well adult exam Physical Therapy Inpatient Evaluation/Re-Eval M1 PT/OT-IP Prior Functional Status Start: 03/17/24 16:11 Freq: NEEDED Status: Active Protocol: Document 03/18/24 09:00 AB (Rec: 03/18/24 12:36 AB [id number]) Medical Review Prior Functional Status Medical History Reviewed Yes Communication able to make needs known Mobility and Gait pt stated that she was modified independent with all mobilities and ambulation without AD initially during the day but come afternoon, she uses her SPC for mobility due to increase hip pain Social History Household Members spouse Living Arrangements House Number of Floors (Floors) 3 or More Floors Number of Stairs To Enter/Railing? pt will be staying on the main floor no steps to enter but has 2 steps down to living area: has cabinets on L and R side that pt can hold on to but they are wide apart and can only use one at a time Home Environment Standard Height Toilet,Walk in Shower Home Equipment Front Wheel Walker,Four Wheel Walker,Raised Toilet Seat w/ Armrests,Shower Seat without Backrest Additional Social History Comment pt's son will be staying to assist pt as well M2 PT-IP Current Condition Start: 03/17/24 16:11 Freq: NEEDED Status: Active Protocol: Document 03/18/24 09:00 AB (Rec: 03/18/24 12:36 AB [id number]) Physical Therapy Current Condition Current Condition Evaluation Date 03/18/24 Treatment Diagnosis s/p R NOEL anterior; difficulty in walking Onset Date 03/17/24 M3 PT-IP Subjective Start: 03/17/24 16:11 Freq: NEEDED Status: Active Protocol: Document 03/18/24 09:00 AB (Rec: 03/18/24 12:36 AB [id number]) Subjective Physical Therapy Visit Type Type Initial Evaluation Visit Start Time 09:00 Visit Stop Time 09:56 Number of PORTER USED CAR LOT Visits 0 Physical Therapy Visit Comments Patient Comments agreeable to do PT Therapy Pain Assessment Pain When Pain Assessed At Rest Pain Present Pain Present Pain Reported Location Right Hip Intensity 4 Scale Used increases to 8/10 with mobility Description Burning Pain Management Techniques Apply Cold,Distraction, Modification of Treatment,Re- positioning,Timing of Activity with Medications M4 PT-IP Mobility and Gait Start: 03/17/24 16:11 Freq: NEEDED Status: Active Protocol: Document 03/18/24 09:00 AB (Rec: 03/18/24 12:36 AB [id number]) PT-Bed Mobility Assessment Supine to Sit Supine to Sit Standby Assistance PT-Transfer Assessment Sit to and From Stand Sit to and from Stand Contact Guard Assistance,1 Person Assistance,Use of Upper Extremities Equipment Transfer Assistive Device Gait Belt Orthotic/Prosthetic Devices or Brace: No Transfers Transfer Destination Chair Transfer Technique ambulated Transfer Ability Level of Assist Contact Guard Assistance,1 Person Assistance,Use of Upper Extremities Comments Mobility Comments pt supine in bed. son in room. educated pt on R hip anterior precautions. BP in bed; 97/66 . pt completed supine to sit SBA. able to sit on EOB SBA. no c/o dizziness. BP checked: 118/67. completed sit to stand CGA and ambulated in room using FWW CGA ~ 20 ft. pt sat on the chair. BP checked : 106/59. caregiver training conducted. educated son on how to use safety belt and how to assist pt. educated pt and son on how to do stair climbing. pt's son was able to put safety belt on pt. assisted pt with sit to stand and ambulation ~ 30 ft towards platform step CGA. pt completed up platform step using SPC + DRIVING TEACHER and son was able to assist pt. pt c/o feeling nauseated. w/c positioned behind pt and assisted pt to sit on w/c. BP checked: 96/62. pt assisted back to the room and to chair. able to step transfer to chair using FWW CGA. positioned pt on the chair. continue to c/o nausea. pt stated that aside from her hip, she has bad knees and c/o knee pain as well. pt stated that she feels that her knee pain is causing her nausea. call light and table placed next to pt. BP checked : 89/51. nurse aware. Talked to pt and son if there is a way for pt to stay and avoid doing stairs. pt stated that they can move the bed to another floor and that she does not have to do stairs. Son agreed. left pt with son in room. Gait Assessment Gait Gait Assistance Required: Contact Guard Assist Distance (Feet) 30 Able to Maintain Weight Bearing Status Yes During Gait Assistive Devices Assistive Device Gait Belt,Front Wheeled Walker Orthotic/Prosthetic Devices or Brace: No Gait Deviations General Gait Pattern Antalgic,Decreased Feet Clearance Factors Limiting Gait Function Factors Limiting Gait Function Decreased Activity Tolerance, Decreased Sensation,Decreased Strength,Difficulty Following Directions,Limited Range of Motion,Pain,Poor Balance,Poor Safety Awareness Stair Climbing Assessment Evaluation Level of Assist On Stairs Maximal Assistance,1 Person Assistance Devices Stair Climbing Assistive Devices Straight Cane Technique/Endurance Stair Climbing Direction Ascend and Descend Stair Climbing Technique Step to Step Number of Steps Climbed 1 Query Text: Stair Climbing Set # Repetitions (reps) 1 PT-Balance Assessment Sitting Balance and Reactions Static Sitting Balance Ability Normal Dynamic Sitting Balance Ability Good Standing Balance and Reactions Static Standing Balance Ability Fair Dynamic Standing Balance Ability Fair Device Used FWW M5 PT-IP Objective Assessments Start: 03/17/24 16:11 Freq: NEEDED Status: Active Protocol: Document 03/18/24 09:00 AB (Rec: 03/18/24 12:36 AB [id number]) Orientation Orientation/Cognition Level of Alertness Alert Orientation Name,Place,Situation Language Function Ability No Deficits Noted Safety Awareness Decreased Safety Awareness Memory Description No Deficits Noted Gross Range of Motion Lower Extremity ROM Assessment Within Functional Limits Strength Lower Extremity Strength Assessment Right Impaired Hip 3-/5 Knee 3+/5 Coordination Assessment Gross Coordination Gross Coordination WNL Sensation Assessment Sensation Gross Sensation WNL Muscle Tone Muscle Tone WNL Yes M6 PT-IP Treatment Start: 03/17/24 16:11 Freq: NEEDED Status: Active Protocol: Document 03/18/24 09:00 AB (Rec: 03/18/24 12:36 AB [id number]) Physical Therapy Treatment Exercises Exercises Heel Slides Education Education Provided Precautions,Weight Bearing Status,Post-Op Packet,Safety M7 PT-IP Assessment and Plan Start: 03/17/24 16:11 Freq: NEEDED Status: Active Protocol: Document 03/18/24 09:00 AB (Rec: 03/18/24 12:36 [id number]) PT Summary Assessment and Plan Potential Rehabilitation Potential Fair Status of Condition at Evaluation Evolving Summary Impairments Pain,ROM,Strength,Balance, Coordination,Sensation,Tone, Cognition,Bed Mobility, Transfers,Gait,Activity Tolerance Assessment Summary pt is a 63 y/o F s/p R NOEL anterior approach POD 1. pt with R hip anterior precautions and is WBAT. pt requiring CGA with mobility using FWW. pt unable to tolerate much activity due to c/o nausea during PT session. caregiver training conducted and son was able to assist pt safely. pt plans to move her bed to another part of the house for her not needing to do stairs for now. will continue to assess progress. Goals Bed Mobility Goal Independent Transfer Goal Independent,Front Wheeled Walker Gait Goal Independent,Front Wheel Walker Gait Distance 200 Days to Meet Goals 5 Frequency of Treatment Frequency Of Treatment Twice a Day Treatment Plan Physical Therapy Treatment Plan Bed Mobility Training,Transfer Training,Gait Training, Therapeutic Exercise,Balance Retraining,Post Op Education, Discharge Planning,Hot or Cold Pack,Neuromuscular Re-ed, Coordination Retraining,Manual Therapy Precautions Anterior Hip Precautions No Hip Extension,No Hip External Rotation Weight Bearing Status Weight Bearing Status Weight Bear as Tolerated Allowed Weight Bearing Amount (enter % RLE WBAT or #) (%) Recommendations To Nursing Amount of Assist Needed 1 Person Assist Discharge Recommendations PT Discharge Recommendations Home with Assistance, Outpatient PT Transportation Needs at Discharge Private Vehicle
--- NOTE | 2024-03-18 10:08 | PM.PNPO.1 ---
Subjective Subjective Date Patient Seen: 03/18/24 Time Patient Seen: 10:08 Interval history: Observed pt attempting to walk in hallway w/ PT; became lightheaded and nauseated, had to sit down. While talking to her when she was sitting in a chair, she c/o experiencing dizziness. Her BP was 90s/50s. In review of pain control in the past, she said she was prescribed oxycodone and Vistaril following her last procedure with our office. It sounds like she developed hives and throat swelling when she discontinued the Vistaril and took the oxycodone on its own. She would prefer to not take opioids at all and says she is very allergic to tramadol. She is currently receiving Dilaudid, which she feels is too strong. Exam Vital Signs (past 8 hours): - 03/18/24 04:33 03/18/24 08:00 Temperature 97.8 F Pulse Rate 65 63 Respiratory Rate 18 Blood Pressure 109/70 112/52 L Pulse Oximetry 95 92 Oxygen Flow Rate 0 Oxygen Delivery Method Nasal Cannula Oxygen Flow Rate 0 Narrative Exam Narrative: 5/5 strength in hip flexors, quadriceps, hamstrings, PF, DF, EHL on right. Sensation to light touch intact throughout RLE, calf soft and compressible. Aquacel dressing CDI. Objective Labs 03/18/24 05:00 Labs: Laboratory Results - last 24 hr 03/18/24 05:00 Hgb 10.2 L Hct 30.9 L PFSH Medical History (Updated 03/06/24 @ 08:47 by Tamika Meza RN) Encounter for pre-operative cardiovascular clearance Iron deficiency anemia Diverticulosis Family history of colon cancer Right hip pain Allergic reaction caused by a drug Borderline hypertension Tenosynovitis Situational anxiety Hyperlipidemia Osteoarthritis (~1999) Allergies (~1996) Anxiety (~2001) Osteopenia (~2009) Foot pain (~1999) Cataracts, bilateral (~2016) GI bleeding (~2019) Knee pain Well adult exam Vertigo Anemia (~2019) Depression (~2001) Surgical History (Updated 03/18/24 @ 10:12 by Linda Del Toro PA-C) History of colonoscopy 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 Will continue Tylenol and change to 975mg q 8h scheduled for baseline control of mild pain. Dilaudid 1mg PO for severe pain only. 3) I'm hoping the above changes can stabilize her today and we can get her home tomorrow. She is in agreement with these changes and this plan. Postoperative Procedures: Procedures Operation Date: 03/17/24 10:45 Actual Procedure Side Surgeon p Total Hip Arthroplasty/Anterior Approach Right Eddie Sandy MD Postoperative day: 1 Quality VTE Deep Vein Thrombosis/Pulmonary Embolism Present on Admission: No
[2024-03-18] MEDS: MULTIVITAMIN 1 TABLET 1 TAB PO (11:13)
[2024-03-18] MEDS: hydrOXYzine HCL 25 MG TABLET PO (11:14)
[2024-03-18] MEDS: LACTATED RINGERS 1,000 ML 100 ML IV ×2 (11:14→21:16)
[2024-03-18] MEDS: CELECOXIB 200 MG CAPSULE PO (11:14)
[2024-03-18] MEDS: ASPIRIN EC 81 MG TABLET PO ×2 (11:14→21:16)
[2024-03-18] MEDS: buPROPion XL 150 MG TAB PO (11:14)
[2024-03-18] MEDS: DOCUSATE 100 MG CAPSULE PO ×2 (11:14→21:16)
--- NOTE | 2024-03-18 13:37 | CM.DANOTE ---
Patient is a 63 yo female who [place] [facility] [place]. Pt has [place] and [place] for [place] and her PCP is Dr. Jhonatan Chacon. EMR was reviewed. Per Ortho PA, pt tolerated procedure well but some dizziness and nausea today and to work with PT and getting anti nausea medication for possible d/c tomorrow if stable. Per PT, pt able to participate but underlying bad knees and had pain management issues and dizziness and unable to complete stairs. Recommending home with family assist and outpt PT at this time. SW met bedside with pt and her adult Dtr and explained role and pt confirms she lives at home outside of [place] with her spouse Baljit and pt is active and independent at baseline but was needing more assist due to hip and knee pain prior to surgery. Pt states she was getting workup for knee surgery when she had a fall and injured her hip and had to have hip surgery first. Pt denies any hx of HH or SNF and is already set up with outpt PT at [facility] and on their schedule for next week. Adult Dtr and adult son plan to take turns staying with pt and spouse through the holidays to provide additional assist as needed and pt currently plans to remain with her outpt PT but would be agreeable to HH referral if she continues to have pain issues and nausea. Family is moving a single bed into the living room today so that pt does not have to do any stairs at discharge until she gets stronger and more mobile to make it upstairs to their bedroom. Plan: SW to follow for additional PT to confirm safe d/c home with family assist and outpt PT vs possible HH if pt continues to have nausea and pain issues. BAO Smyth Discharge Planning/Care Management CM Discharge Assessment Start: 03/18/24 13:35 Freq: Status: Active Protocol: Document 03/18/24 13:35 BF (Rec: 03/18/24 13:37 BF [id number]) Discharge Planning Assessment Assigned Bone Char Kiln Operator BAO Morrison DPOA/Assigned Designee Name spouse Baljit Contact Information [phone] Advance Directives? No Advance Directives on File No History Provided By Patient,Family Member,Medical Record Has Patient been admitted in last 30 No days? Prior Living Arrangements House Household Members spouse Type of transporation used prior to Drives own vehicle admit Independent with ADL's Yes Is patient alert and oriented? Yes Caregiver for Another No Community Services used prior to Physical Therapy admission: Comment Set up for [facility] outpt PT this coming week DME Already Rented / Owned FWW / Walker Patient/Family Preference OP PT Therapy Comment HH vs outpt PT pending progress and nausea Barriers to Discharge No Discharge Plan Home Community Services Physical Therapy Transportation Arrangement Dtr or son plan to transport home at d/c Additional Comment Already set up with outpt PT but might benefit from HH r/o Whiteboard Updated in Patient Room with Yes name and ext. # of Bone Char Kiln Operator Review Status In Process Please Provide Date Initial DC 03/18/24 Assessment Was Performed Next Review Type Continued Stay Review Pre-Anesthesia Assessment Start: 03/06/24 08:18 Freq: Status: Complete Protocol: Document 03/06/24 08:18 LB (Rec: 03/06/24 09:41 LB [id number]) Pre-Anesthesia Assessment PAC Comment 03/06/24 Phone assessment. Patient Information Reviewed Via Phone Assessment Assessment Completed With Patient Diagnostic Results BMP/CMP,CBC,EKG Comment 11/29/23 at . Primary Care Provider Jhonatan Chacon Medical Clearance Received Yes Seen Specialist in Last 12 Months Yes Specialist Seen Emergency,Orthopedist,Other Primary Language Lebanese Preferred Language Lebanese Administration Manager Required No Height 154.94 cm Weight 71.668 kg Body Mass Index (BMI) 29.8 Hearing Ability Normal Visual Assist Glasses Dentition Type Teeth, Natural Present Barriers to Learning None Other Aids No Hx Anesthesia Reactions Yes: PONV - does well with scop patch. Hx Family Anesthesia Reaction No Hx Malignant Hyperthermia No Hx Blood Transfusions Yes: 2020 with GIB. Hx Blood Transfusion Reaction No Anesthesia Review Requested No Medical Policy Specialist No alcohol intake former Smoking Status Never smoker how long ago did patient quit smoking Quit 02/26. Substance Use Type does not use Pain Present Pain Reported Comment Right hip. Musculoskeletal Symptoms Back Pain,Difficulty Walking, Radiating Pain into Limb History of Falling (Recent or History of Yes ) Comment 04/28. Patient is completely paralyzed or No completely immobile Prosthesis or Orthotic Device Cane Mental Status Oriented to own ability Comment Will bring walker. Is patient on oxygen? No Does patient have ENGLISH/SOB No Hx Sleep Apnea Yes CPAP/BIPAP use prescribed not used Currently Taking a Beta Mervat Yes: Propranolol 10mg BID. Can You Climb a Flight of Stairs Without Yes SOB Hx Chest Pain Yes: Related to anxiety. Hx SOB No Hx Syncope or Dizziness No Anti-Coagulant Therapy No Has a Consumer Analyst No Cardiac Testing No Hx Pacemaker/ICD No Cardiac Clearance Received Not Applicable Comment Hematology clearance received. Dysphagia No Chronic UTI No Bladder Pattern Nocturia Urinary Catheter Present No Hx Urinary Self Catheterization No Diabetes No HgbA1C 5.3 Date 11/29/23 Patient No Lactating No Hx Drug Resistant Organism No Presence of External or Internal Medical Yes: Bilat IOL, left shoulder. Devices Have you had any close contact with No someone diagnosed with COVID-19? Are you experiencing any of these No symptoms symptoms? Received a COVID vaccine? Yes: Moderna Comment Last covid Dec 2023. Marital Status Lives With spouse Current Living Arrangements House Number of Floors (Floors) 3 or More Floors Number of Stairs To Enter/Railing? 0 stairs to enter. Main floor living. Support System Child/Children,Spouse Does the Patient Have Assistance After Yes Surgery Patient Discharge Plan Description Return Home Additional comment Prefers to spend one night in hospital. Feels Safe in Current Environment No Do you have a plan to hurt yourself or No Plan others? Do You Have Any Spiritual Beliefs That No May Affect Your HC Choices? Do You Have Any Cultural Practices That No May Affect Your HC Choices? Emergency Contact Name Baljit [place] - Emergency Contact Advance Directives? No Power of Director Of Laboratory Operations No PAC Instructions Assistance for 24 hours post- op,Durable medical equipment, Medications to take/avoid, Nasal antibiotic,No ETOH/ petroleum product on skin DOS, NPO,Post-op transportation,Pre -op antibiotic,Pre-surgical wash,Sensory aids,Sturdy shoes /comfortable clothes,Do not bring valuables and remove jewelry
[2024-03-18] MEDS: ACETAMINOPHEN 325 MG TABLET 975 MG PO ×2 (14:04→22:12)
--- NOTE | 2024-03-18 14:27 | PT-IP ANOTE ---
checked on pt this afternoon. pt stated that she just got up with nursing staff a few minutes ago and does not want to do PT this afternoon.
[2024-03-18] MEDS: PRAVASTATIN 20 MG TABLET PO (16:38)
[2024-03-18] MEDS: PROGESTERONE, MICRONIZED 100 MG CAPSULE PO (16:38)
[2024-03-18 20:00] VITALS: BP 102/60; PULSE 64; RESP 16; TEMP 36.5; O2SAT 94
[2024-03-18] MEDS: PROPRANOLOL 10 MG TABLET PO (21:16)
--- NOTE | 2024-03-19 03:17 | PC.NURSE ---
Assumed care of patient at 0314.
[2024-03-19] MEDS: ONDANSETRON 4 MG/2 ML INJ IV (05:07)
[2024-03-19] MEDS: hydrOXYzine HCL 25 MG TABLET PO ×2 (05:07→19:43)
[2024-03-19] MEDS: HYDROMORPHONE 2 MG TABLET 1 MG PO (05:07)
[2024-03-19] MEDS: ACETAMINOPHEN 325 MG TABLET 975 MG PO ×3 (06:35→22:31)
[2024-03-19] MEDS: LACTATED RINGERS 1,000 ML 100 ML IV (06:39)
[2024-03-19 08:00] VITALS: BP 119/69; PULSE 68; RESP 17; TEMP 36.3; O2SAT 91
[2024-03-19] MEDS: ASPIRIN EC 81 MG TABLET PO ×2 (09:05→20:40)
[2024-03-19] MEDS: buPROPion XL 150 MG TAB PO (09:05)
[2024-03-19] MEDS: CELECOXIB 200 MG CAPSULE PO (09:05)
[2024-03-19] MEDS: DOCUSATE 100 MG CAPSULE PO ×2 (09:05→20:40)
[2024-03-19] MEDS: MULTIVITAMIN 1 TABLET 1 TAB PO (09:05)
--- NOTE | 2024-03-19 09:45 | PM.PNPO.1 ---
Subjective Subjective Date Patient Seen: 03/19/24 Time Patient Seen: 09:45 Interval history: Germaine is sitting up in bed on my visit this morning and looking much brighter. She continues to c/o dizziness and has not demonstrated ability to do steps with PT to her satisfaction; she said she was too tired to participate with PT yesterday afternoon. Her pain and nausea are somewhat improved following the changes we made yesterday. Her BP remains on the low side; it looks like she did receive her propranolol last night despite instructions to hold for SBP < 130. Exam Vital Signs (past 8 hours): - 03/19/24 08:00 03/19/24 09:00 Temperature 97.3 F L Pulse Rate 68 Respiratory Rate 17 Blood Pressure 119/69 Pulse Oximetry 91 Oxygen Delivery Method Room Air Oxygen Flow Rate 0 Oxygen Delivery Method Room Air Oxygen Flow Rate 0 Narrative Exam Narrative: 5/5 hip flexors, quadriceps, hamstrings, PF, DF, EHL on right. Sensation to light touch intact throughout RLE. Calf soft and compressible. Aquacel dressing CDI. Objective Labs 03/18/24 05:00 [facility] Medical History (Updated 03/06/24 @ 08:47 by Tamika Meza RN) Encounter for pre-operative cardiovascular clearance Iron deficiency anemia Diverticulosis Family history of colon cancer Right hip pain Allergic reaction caused by a drug Borderline hypertension Tenosynovitis Situational anxiety Hyperlipidemia Osteoarthritis (~1999) Allergies (~1996) Anxiety (~2001) Osteopenia (~2009) Foot pain (~1999) Cataracts, bilateral (~2016) GI bleeding (~2019) Knee pain Well adult exam Vertigo Anemia (~2019) Depression (~2001) Surgical History (Updated 03/18/24 @ 10:12 by Linda Del Toro PA-C) History of colonoscopy 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 If she makes satisfactory progress, likely d/c home tomorrow. 2) Hypotension - I'll go ahead and d/c her IVF today. Continue to hold propranolol for SBP < 130 - discussed this with pt for discharge as well. 3) Continue current pain/antinausea regimen. Plan on d/c home tomorrow if nausea and dizziness juli. Postoperative Procedures: Procedures Operation Date: 03/17/24 10:45 Actual Procedure Side Surgeon p Total Hip Arthroplasty/Anterior Approach Right Eddie Sandy MD Postoperative day: 2 Quality VTE Deep Vein Thrombosis/Pulmonary Embolism Present on Admission: No
--- NOTE | 2024-03-19 11:23 | PT.IPTN ---
Current Diagnoses Unilateral primary osteoarthritis, right hip (03/17/24) Presence of unspecified artificial hip joint (03/17/24) Surgery Performed Operation Date: 03/17/24 10:45 Actual Procedures p Total Hip Arthroplasty/Anterior Approach(Right) - Eddie Sandy MD Physical Therapy Treatment Note M2 PT-IP Current Condition Start: 03/17/24 16:11 Freq: NEEDED Status: Active Protocol: Document 03/18/24 09:00 AB (Rec: 03/18/24 12:36 AB [id number]) Physical Therapy Current Condition Current Condition Evaluation Date 03/18/24 Treatment Diagnosis s/p R NOEL anterior; difficulty in walking Onset Date 03/17/24 M3 PT-IP Subjective Start: 03/17/24 16:11 Freq: NEEDED Status: Active Protocol: Document 03/19/24 10:48 MB (Rec: 03/19/24 11:23 MB [id number]) Subjective Physical Therapy Visit Type Type Treatment Note Visit Start Time 10:48 Visit Stop Time 11:14 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 She was up walking in the halls earlier. She has some dizziness but not too much today when she is up. Therapy Pain Assessment Pain When Pain Assessed At Rest Pain Present Pain Present Pain Reported Location Right Hip Intensity 4 M4 PT-IP Mobility and Gait Start: 03/17/24 16:11 Freq: NEEDED Status: Active Protocol: Document 03/19/24 10:48 MB (Rec: 03/19/24 11:23 MB [id number]) PT-Bed Mobility Assessment Supine to Sit Supine to Sit Independent Scooting Scooting to Edge of Bed Independent PT-Transfer Assessment Sit to and From Stand Sit to and from Stand Standby Assistance,1 Person Assistance,Use of Upper Extremities Equipment Transfer Assistive Device Gait Belt Orthotic/Prosthetic Devices or Brace: No Transfers Transfer Destination Chair Transfer Technique Ambulation Transfer Ability Level of Assist Standby Assistance,1 Person Assistance,Use of Upper Extremities Comments Mobility Comments Orthostatic check with BP and HR in RUE: supine 118/68, 60; standing 122/73, 84; standing 1' 122/64, 64; after gait, 131 /62, 66. Gait Assessment Gait Gait Assistance Required: Standby Assistance Distance (Feet) 80 Able to Maintain Weight Bearing Status Yes During Gait Assistive Devices Assistive Device Gait Belt,Front Wheeled Walker Orthotic/Prosthetic Devices or Brace: No Gait Deviations General Gait Pattern Antalgic,Decreased Stride Length,Decreased Feet Clearance,Step-to Gait Factors Limiting Gait Function Factors Limiting Gait Function Decreased Activity Tolerance, Limited Range of Motion,Pain, Poor Balance Comments Gait Comments 80'x2 today Stair Climbing Assessment Evaluation Level of Assist On Stairs Standby Assistance,1 Person Assistance Devices Stair Climbing Assistive Devices Right Railing Technique/Endurance Stair Climbing Direction Ascend and Descend Stair Climbing Technique Step to Step Number of Steps Climbed 2 Stair Climbing Set # Repetitions (reps) 1 Comments Stair Climbing Comments Unable to mimic holding onto step at home but discussed and used both hands on right rail ascend (same rail descend), facing rail and step-to with left foot first ascend and right foot first descend PT-Balance Assessment Sitting Balance and Reactions Static Sitting Balance Ability Normal Dynamic Sitting Balance Ability Good Standing Balance and Reactions Static Standing Balance Ability Good Dynamic Standing Balance Ability Fair Device Used RW M5 PT-IP Objective Assessments Start: 03/17/24 16:11 Freq: NEEDED Status: Active Protocol: Document 03/18/24 09:00 AB (Rec: 03/18/24 12:36 AB [id number]) Orientation Orientation/Cognition Level of Alertness Alert Orientation Name,Place,Situation Language Function Ability No Deficits Noted Safety Awareness Decreased Safety Awareness Memory Description No Deficits Noted Gross Range of Motion Lower Extremity ROM Assessment Within Functional Limits Strength Lower Extremity Strength Assessment Right Impaired Hip 3-/5 Knee 3+/5 Coordination Assessment Gross Coordination Gross Coordination WNL Sensation Assessment Sensation Gross Sensation WNL Muscle Tone Muscle Tone WNL Yes M6 PT-IP Treatment Start: 03/17/24 16:11 Freq: NEEDED Status: Active Protocol: Document 03/19/24 10:48 MB (Rec: 03/19/24 11:23 MB [id number]) Physical Therapy Treatment Education Education Provided Precautions,Safety M7 PT-IP Assessment and Plan Start: 03/17/24 16:11 Freq: NEEDED Status: Active Protocol: Document 03/19/24 10:48 MB (Rec: 03/19/24 11:23 MB [id number]) PT Summary Assessment and Plan Potential Rehabilitation Potential Good Status of Condition at Evaluation Evolving Summary Impairments Pain,ROM,Strength,Balance, Coordination,Bed Mobility, Transfers,Gait,Activity Tolerance Progress Towards Goals Progressing Toward Goals Assessment Summary Germaine is progressing with mobility and she is not orthostatic today. She and son have come up with a way not to do steps when she d/cs home but did practice today to build I and confidence. Recommend up with nsg to chair and BR. Goals Bed Mobility Goal Independent Transfer Goal Independent,Front Wheeled Walker Gait Goal Independent,Front Wheel Walker Gait Distance 100 Days to Meet Goals 5 Frequency of Treatment Frequency Of Treatment Once a Day Other frequency 1-2x/day Treatment Plan Physical Therapy Treatment Plan Bed Mobility Training,Transfer Training,Gait Training, Therapeutic Exercise,Balance Retraining,Post Op Education, Discharge Planning,Hot or Cold Pack Precautions Other Precautions No hyperextension right hip Weight Bearing Status Weight Bearing Status Weight Bear as Tolerated Allowed Weight Bearing Amount (enter % RLE or #) (%) Recommendations To Nursing Amount of Assist Needed Standby Assistance Discharge Recommendations PT Discharge Recommendations Home with Assistance, Outpatient PT Transportation Needs at Discharge Private Vehicle
[2024-03-19] MEDS: polyethylene glycoL 3350 17 GM POWD.PACK PO (13:25)
[2024-03-19] MEDS: PROGESTERONE, MICRONIZED 100 MG CAPSULE PO (18:18)
[2024-03-19] MEDS: PRAVASTATIN 20 MG TABLET PO (18:18)
[2024-03-19 20:00] VITALS: BP 110/62; PULSE 72; RESP 16; TEMP 36.8; O2SAT 93
[2024-03-20 06:13] VITALS: BP 100/78; PULSE 65; RESP 18; O2SAT 98
[2024-03-20] MEDS: ACETAMINOPHEN 325 MG TABLET 975 MG PO (06:33)
--- NOTE | 2024-03-20 08:37 | PC.NURSE ---
Addendum entered by Katie Gonsalez R.N. 03/20/24 12:14: 1200 Patient off unit via wheelchair. Belongings/walker in possession. Addendum entered by Katie Gonsalez R.N. 03/20/24 11:16: 1115 Discharge instructions given to patient. Patient verbalized understanding. IV to left AC removed, bandage applied. Patient with belongings. Patient with no complaints at this time. No distress noted. Original Note: 0730 Report received from nightshift RN. Dressing noted to right hip, clean ,dry and intact. Mild swelling noted, will maintain ice packs. Patient denies pain, numbness and tingling. Patient sitting up in chair. Call light within reach.
[2024-03-20] MEDS: MULTIVITAMIN 1 TABLET 1 TAB PO (08:50)
[2024-03-20] MEDS: CELECOXIB 200 MG CAPSULE PO (08:50)
[2024-03-20] MEDS: buPROPion XL 150 MG TAB PO (08:50)
[2024-03-20] MEDS: ASPIRIN EC 81 MG TABLET PO (08:50)
[2024-03-20] MEDS: DOCUSATE 100 MG CAPSULE PO (08:50)
--- NOTE | 2024-03-20 10:07 | PM.DS.1 ---
History of Present Illness History of Present Illness Date Patient Seen: 03/20/24 Time Patient Seen: 10:07 Chief complaint: Right Total Hip Arthroplasty/Anterior Approach Narrative: Operative Date/Time/Diagnoses Date of procedure: 03/17/24 Pre-op diagnosis: Right hip osteoarthritis Post-op diagnosis: same Procedure & Clinicians Procedure: 1. Right total hip arthroplasty (54322) 2. Fixation of right proximal femur calcar fracture (46023) Same procedure as scheduled: Yes Surgeon: Eddie Sandy Surgical Clinical Reviewer: Linda Del Toro Anesthesia Type: Spinal, Sedation and Local Operative Notes Estimated Blood Loss (mL): 250 Procedure in detail: Right Uncemented Direct Anterior Depuy Total Hip Arthroplasty: Implants: [place] Gription size 52 cup? Actis femoral stem size 4 high offset? 36 mm +8.5 ceramic femoral head? Discharge Providers Provider Discharge Date: 03/20/24 Primary care physician: Jhonatan Chacon DO Consults: 03/17/24 07:24 Consult to Anesthesiology Routine Comment: Consulting Provider: Anesthesiologist Reason for consultation: Regional block for post operative pain control 03/17/24 14:50 Consult to Discharge Planning Routine Comment: Consult to Physical Therapy Evaluate & Treat Comment: Physician Instructions: post op NOEL protocol Discharge provider: Linda Del Toro PA-C Summary Hospital Course Discharge Diagnosis: Right hip osteoarthritis, s/p right total hip arthroplasty with fixation of proximal calcar fracture Hospital Course: Ms Cleveland's hospital course was remarkable for symptomatic postoperative hypotension and difficulty w/ pain control d/t her multiple allergies. On the morning of POD# 3, she was feeling much better. She was eating and voiding without difficulty. Her pain was well-controlled with a combination methocarbamol, Tylenol, Celebrex, hydroxyzine, and ice. Her nausea was well-controlled with a combination of ondansetron and avoidance of opioids. Her propranolol was held as her SBP did not exceed 130mmHg. Exam Vital Signs (past 8 hours): - 03/20/24 06:13 Pulse Rate 65 Respiratory Rate 18 Blood Pressure 100/78 Pulse Oximetry 98 Oxygen Flow Rate 0 Oxygen Delivery Method Room Air Oxygen Flow Rate 0 Narrative Exam Narrative: 5/5 strength in hip flexors, quadriceps, hamstrings, PF, DF, EHL on right. Sensation to light touch intact throughout RLE. Calf soft and compressible. Aquacel dressing CDI. Objective Labs 03/18/24 05:00 COUNTS INCLUDE 234 BEDS AT THE [facility] Medical History (Updated 03/06/24 @ 08:47 by Tamika Meza RN) Encounter for pre-operative cardiovascular clearance Iron deficiency anemia Diverticulosis Family history of colon cancer Right hip pain Allergic reaction caused by a drug Borderline hypertension Tenosynovitis Situational anxiety Hyperlipidemia Osteoarthritis (~1999) Allergies (~1996) Anxiety (~2001) Osteopenia (~2009) Foot pain (~1999) Cataracts, bilateral (~2016) GI bleeding (~2019) Knee pain Well adult exam Vertigo Anemia (~2019) Depression (~2001) Surgical History (Updated 03/18/24 @ 10:12 by Linda Del Toro PA-C) History of colonoscopy 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 Continue to hold propranolol for SBP < 130. Discharge Plan Discharge Plan Patient Disposition: Home Discharge orders & Medications Discharge Orders: Discharge (Order); Ordered 03/20/24 Ordered By: Linda Del Toro Prescriptions: New hydromorphone 2 mg Tablet 1 mg PO Q4HR PRN (Reason: Pain, Severe (7-10)) Qty: 5 0RF ondansetron 4 mg Tablet,Disintegrating 4 mg PO Q4HR PRN (Reason: Nausea) Qty: 30 1RF polyethylene glycol 3350 17 gram Powder In Packet 17 g PO DAILY PRN (Reason: Constipation) Qty: 100 0RF celecoxib [Celebrex] 200 mg Capsule 200 mg PO DAILY Qty: 30 0RF hydroxyzine HCl 25 mg Tablet 25 mg PO Q4-6H PRN (Reason: nausea, anxiety, mod pain) Qty: 120 0RF Continued multivitamin [Multiple Vitamins] 1 EACH tablet 1 tab PO QDAY Qty: 0 bupropion HCl [Wellbutrin XL] 150 mg tablet extended release 24 hr 150 mg PO QAM Qty: 90 3RF pravastatin 20 mg tablet 20 mg PO QPM Qty: 90 3RF (DME) Disabled Parking Permint See Rx Instructions .ROUTE .MEDSUPPLY Qty: 1 0RF Rx Instructions: I find this patient to be medically disabled and qualified for Disabled Parking as indicated and signed on the Accompanying Disabled Parking Application for individuals. methocarbamol 500 mg tablet 500 mg PO TID PRN (Reason: muscle spasm) Qty: 30 1RF progesterone micronized 100 mg capsule 100 mg PO QPM Patient Comments: take 1 capsule by mouth every evening [id number] 2,250 mg PO DAILY (DME) oxygen-air delivery systems [[employer] Nasal Cpap System] .Route estradiol 1.25 gram/actuation gel in metered-dose pump 1.25 g transdermal DAILY ferrous sulfate 27 mg iron Tablet 27 mg PO DAILY Tylenol Extra Strength 500 mg Powder In Packet 1,000 mg PO QAM omega-3 fatty acids 500 mg capsule 500 mg PO DAILY mecobalamin (vitamin B12) 5,000 mcg tablet,disintegrating 5,000 mcg PO DAILY hydroeye 1 cap PO DAILY Changed propranolol 10 mg tablet 10 mg PO BID Qty: 1 0RF Rx Instructions: TAKE ONLY IF SBP IS 130 OR GREATER. Follow up/Referrals: Jhonatan Chacon DO [Primary Care Provider] - Eddie Sandy MD [Physician] - 03/30/24 1:00 pm (Follow up w/ Linda Del Toro PA-C, at [facility] office in [place].) Diet/Activity/Treatments Diet: Diet as Tolerated Activity: Weightbearing as tolerated. Anterior hip precautions. Cold/Heat Therapy: Ice to hip as needed for pain. Skin/Wound/Dressing Care Report to your healthcare provider any signs of infection, such as:: chills, fever, night sweats, unusual drainage and unusual redness Dressing: May shower. Keep dressing in place until follow up in office. No bathing or otherwise soaking incision. Call the office if the dressing becomes saturated inside. Visit Report/Discharge Packet Instructions: DI for Hip Replacement, DI for Prescription Opioid Use Stand Alone Forms: Patient Portal/API, Surgery Discharge Discharge Data Primary Care Provider: Jhonatan Chacon Attending Provider: Eddie Sandy VTE Deep Vein Thrombosis/Pulmonary Embolism Present on Admission: No
--- NOTE | 2024-03-20 10:47 | CM.DPC ---
DCP Discharge Home Per Ortho, pt medically stable to d/c home today and bp resolved and no dizziness and no identified barriers to discharge. Per PT, recommending safe d/c home with spouse assist and outpt PT. Pt already scheduled with [facility] outpt PT for this week. Discharge instructions provided by RN and no concerns noted and spouse bedside for transport home today. BAO Smyth
== END 2024-03-20 12:00 | disposition home or self-care (01) ==
LOC: OR 08:43 → AC 08:44
PROVIDERS: PCP Family Medicine; Referring Provider Orthopaedic Surgery Adult Reconstructive Orthopaedic Surgery; Visit Provider Orthopaedic Surgery Adult Reconstructive Orthopaedic Surgery
PROC: (CPT 27130; principal; 2024-03-17 10:45)
DX: M16.11 Unilateral primary osteoarthritis, right hip (principal); M25.751 Osteophyte, right hip; M97.01XA Periprosthetic fracture around internal prosthetic right hip joint, initial encounter
CPT/HCPCS: 27130; 36415; 73502; 76000; 85014; 85018; 97116; 97162; 97530; C1776; A9270; J0690; J1100; J2405; J2704; J3010

== ENCOUNTER → 2024-04-17 15:49 | Outpatient (CLI) | payer MEDICARE, OTHER, SELFPAY ==
[2024-03-17 14:52] VITALS: BMI 30.2
--- NOTE | 2024-04-17 15:51 | DI.US.S_ITS ---
PROCEDURE: US PERIPH VENOUS LOW EXTREM RT INDICATIONS: RIGHT POTTS PAIN X 1 MO; RIGHT HIP SURGERY 1 MONTH AGO TECHNIQUE: Real-time imaging, as well as color and pulse Doppler interrogation, were performed of the lower extremity deep veins from the inguinal ligament to the popliteal fossa, with documentation of the visualized calf veins. COMPARISON: [facility] [place], [place], XR PELVIS WITH LATERAL HIP RIGHT, 03/30/2024, 13:18. FINDINGS: The common femoral, femoral, popliteal, and the visualized calf veins are normally compressible, and free of intraluminal thrombus. Color and pulse Doppler demonstrate normal phasic intraluminal flow. There is normal augmentation response to distal compression maneuver. Peroneal veins and posterior tibial veins are patent. No abnormality seen in the area of concern at the right potts. No fluid collection. IMPRESSION: No right lower extremity DVT. Dictated by: Liang Lombardi M.D. on 04/17/2024 at 17:08 Approved by: Liang Lombardi M.D. on 04/17/2024 at 17:10
== END ==
LOC: US 15:50
PROVIDERS: PCP Family Medicine; Referring Provider Orthopaedic Surgery Adult Reconstructive Orthopaedic Surgery; Visit Provider Orthopaedic Surgery Adult Reconstructive Orthopaedic Surgery
DX: M79.661 Pain in right lower leg (principal)
CPT/HCPCS: 93971

== ENCOUNTER → 2024-05-25 08:39 | Outpatient (CLI) | payer MEDICARE, OTHER, SELFPAY ==
[2024-03-17 14:52] VITALS: BMI 30.2
--- NOTE | 2024-05-25 08:41 | DI.NM.S_ITS ---
PROCEDURE: NM BONE 3 PHASE RADIOPHARMACEUTICAL: 20.9 the mCi Tc-99m MDP IV. INDICATIONS: UNILATERAL PRIMARY OSTEOARTHRITIS, RT HIP TECHNIQUE: Multiple bone scintigrams were obtained after intravenous injection of Tc-99m MDP, including flow, blood pool, and delayed images centered to the region of interest. COMPARISON: [facility] [place], CR, XR PELVIS WITH LATERAL HIP RIGHT, 05/04/2024, 13:19. FINDINGS: Right hip arthroplasty. There is mild activity around the greater trochanter fracture on blood flow and blood pool imaging. No significant activity around the rest of the arthroplasty. Mild activity around the arthroplasty on delayed imaging which is commonly seen in recently placed arthroplasties. IMPRESSION: No definite evidence of loosening or infection. Mild activity around the greater trochanter fracture fragment is nonspecific. Dictated by: Sanket Gordon M.D. on 05/26/2024 at 14:47 Approved by: Sanket Gordon M.D. on 05/26/2024 at 14:55
== END ==
PROVIDERS: PCP Family Medicine; Referring Provider Orthopaedic Surgery Adult Reconstructive Orthopaedic Surgery; Visit Provider Orthopaedic Surgery Adult Reconstructive Orthopaedic Surgery
DX: M16.11 Unilateral primary osteoarthritis, right hip (principal); Z96.641 Presence of right artificial hip joint
CPT/HCPCS: 78315; A9503